=== PATIENT | male | born 1990 | race Caucasian/White ===

== ENCOUNTER 2023-10-21 19:02 | Emergency (ER) | payer MEDICAID, SELFPAY | END 2023-10-21 23:11 | disposition left against medical advice (07) | LOC: HO.ED 22:23 | PROVIDERS: Emergency Provider Emergency Medicine | DX: M25.551 Pain in right hip (principal) ==

== ENCOUNTER 2024-02-08 10:20 | Emergency (ER) | payer MEDICAID, SELFPAY ==
--- NOTE | ~2024-02-08 | XR_ITS ---
X-RAY LUMBAR SPINE X-RAY SACRUM/COCCYX CLINICAL HISTORY: Back pain. COMPARISON: No relevant prior studies are available for comparison. TECHNIQUE: 3 views of the lumbosacral spine. 3 views of the sacrum/coccyx. FINDINGS: Lumbar spine: No acute compression deformity or subluxation. Mild intervertebral disc height loss and facet arthropathy at L5-S1. No significant paraspinal soft tissue abnormality. Sacrum/coccyx: No fracture or subluxation. Symmetric SI joints. Postsurgical changes projecting over the left lower quadrant likely from prior hernia repair, correlate with history. XR/XR lumbar spine 2-3V IMPRESSION: 1. No acute compression deformity or subluxation. 2. Mild lumbar spondylosis at L5-S1. 3. No fracture or subluxation of the sacrum/coccyx.
--- NOTE | ~2024-02-08 | XR_ITS ---
X-RAY LUMBAR SPINE X-RAY SACRUM/COCCYX CLINICAL HISTORY: Back pain. COMPARISON: No relevant prior studies are available for comparison. TECHNIQUE: 3 views of the lumbosacral spine. 3 views of the sacrum/coccyx. FINDINGS: Lumbar spine: No acute compression deformity or subluxation. Mild intervertebral disc height loss and facet arthropathy at L5-S1. No significant paraspinal soft tissue abnormality. Sacrum/coccyx: No fracture or subluxation. Symmetric SI joints. Postsurgical changes projecting over the left lower quadrant likely from prior hernia repair, correlate with history. XR/XR sacrum coccyx min 2V IMPRESSION: 1. No acute compression deformity or subluxation. 2. Mild lumbar spondylosis at L5-S1. 3. No fracture or subluxation of the sacrum/coccyx.
[2024-02-08 10:44] VITALS: BP 126/78; PULSE 94; RESP 20; TEMP 36.6; O2SAT 99; BMI 30.4
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
[2024-02-08 15:08] VITALS: BP 110/68; PULSE 63; RESP 18; TEMP 37.4; O2SAT 99
[2024-02-08 15:24] VITALS: BP 110/68; PULSE 63; RESP 18; TEMP 37.4
== END 2024-02-08 15:25 | disposition home or self-care (01) ==
PROVIDERS: Emergency Provider Student in an Organized Health Care Education/Training Program; PCP Physician Assistant
DX: M47.896 Other spondylosis, lumbar region (principal); M54.50 Low back pain, unspecified; M53.3 Sacrococcygeal disorders, not elsewhere classified
CPT/HCPCS: 72100; 72220; 99282; 99283

== ENCOUNTER 2024-09-01 23:03 | Emergency (ER) | payer MEDICAID, SELFPAY ==
[2024-09-01 23:23] VITALS: BP 131/71; PULSE 83; RESP 16; TEMP 36.9; O2SAT 97; BMI 28.5
--- NOTE | 2024-09-02 01:43 | ED_ITS ---
HPI - General Adult General Chief complaint: Extremity Injury, Lower Stated complaint: R Hip Pain No Injury Time Seen by Provider: 09/02/24 01:43 Source: patient Mode of arrival: ambulatory Limitations: no limitations History of Present Illness HPI narrative: Patient is a 34-year-old male presents emergency department for evaluation of pain to the right hip , described as a deep pain able localized to the right buttock that exacerbates with movement of the right lower extremity in a sensation of spasming to the buttock. At this time he denies any lower back pain associated with this. He reports a history of similar pain last year reports that he ?received an injection? in the emergency department and his pain improved. He was seen by his primary care doctor yesterday who thought his pain is secondary to his sciatic nerve, advised him to take oral naproxen which he took earlier this morning with minimal improvement as well as diclofenac gel without improvement. He denies any recent known injury, heavy lifting, numbness or tingling to the extremity, genitourinary symptoms. No recent fevers chills unintentional weight loss. Related Data Previous Rx's ?Medication ?Instructions ?Recorded ibuprofen 600 mg tablet 600 mg PO Q6H PRN pain #30 tabs 02/08/24 lidocaine 5 % topical patch 1 patch topical DAILY #30 ea 02/08/24 (Lidoderm) cyclobenzaprine 5 mg tablet 5 mg PO TID PRN muscle spasm #14 09/02/24 tabs prednisone 20 mg tablet 40 mg (2 x 20 mg) PO DAILY 5 days 09/02/24 #10 tabs Allergies Allergy/AdvReac Type Severity Reaction Status Date / Time No Known Allergies Allergy Verified 09/01/24 23:25 [No Known Allergies*] Review of Systems Review of Systems: Yes all other systems are reviewed and are negative [facility] Past Medical History Attestation statement: The following information was validated with the patient. Source: old records reviewed Social History Social History Smoked in Last 30 Days: No Use of substances other than those prescribed or required for medical reasons: No Advance Directives: No Advance Directives Information Provided: No Do you have a plan to hurt others: No Plan Physical Exam ED Vital Signs: Vital Signs - 24 hr 09/01/24 23:23 Temperature 98.4 F Pulse Rate 83 Respiratory Rate 16 Blood Pressure 131/71 Pulse Oximetry 97 Oxygen Delivery Method Room Air BMI result Body Mass Index 28.5 Appearance: Alert.?Oriented to person, place and time. No acute distress.?Normal affect. Eyes: Pupils equal, round and reactive to light.? ENT: Pharynx normal.?? Neck: Normal inspection.? Neck supple.?? CVS: Heart sounds normal. Normal heart rate and rhythm.? Pulses normal.?? Respiratory: No respiratory distress.? Lung sounds clear to auscultation bilaterally?? Abdomen: Soft and non-tender. Normoactive bowel sounds. Skin: Skin warm and dry.? Normal skin color.? Back: No midline lumbar spine tenderness, step-offs, deformities. Extremities: No lower extremity edema.? No calf ttp?decreased AROM to the right hip secondary to pain, positive straight leg test on the right. 2+ DP/PT pulse. Neuro: Moves all extremities spontaneously. Sensation intact bilaterally. No focal neuro deficits. Ambulates with antalgic gait. Medications Administered Discontinued Medications Generic Name Dose Route Start Last Admin Trade Name Goodq PRN Reason Stop Dose Admin Ketorolac Tromethamine 15 mg 09/02/24 01:46 09/02/24 01:53 Ketorolac Tromethamine 15 Mg/Ml Vial IM 09/02/24 01:47 15 mg ONCE ONE Administration Medical Decision Making Medical Decision Making [facility] Narrative: Patient is a 34-year-old male who presents emergency department report of pain to the right hip that exacerbates with movement, this is a deep pain in the right glute most concerning for sciatica at this time though there may be mus cular involvement. He has had a history of similar pain in the past, he has been seen in this emergency department previously for lower back pain. He is requesting an MRI of his hip, this time I do not see any clinical indication for this. Pain is atraumatic and given his age I have a low suspicion for significant arthritis, unlikely to have acute fracture. Discussed with patient cannot completely exclude herniated disc of the lumbar region that may be resulting in radicular involvement, On neurological exam there are no deficits. No high risk past medical history including incontinence, fever, immunosuppression, recent surgery or lumbar puncture, coagulopathy, significant trauma, recent unintentional weight loss, pulsatile mass, history of cancer, history of TB, history of IV drug use that would warrant MRI or CT. Received a dose of Toradol IM in the emergency department. Declines interest in continuing to take the naproxen as this provided him with minimal relief. Significant pain with minimal movement of the lower extremity. I will provide him with a short course of prednisone, muscle relaxant given the spasming nature and recommended outpatient follow-up with his primary care doctor, he was made aware that he may require a course of physical therapy which he should speak with his primary care doctor in regards to. Discussed worrisome signs and symptoms that would warrant re-evaluation in the emergency department. All questions answered. Stable for discharge Differential Diagnosis Differential Diagnoses: The differential diagnosis associated with the presentation includes ( see narrative above) Admission/Observation Consideration of admission/observation: Escalation of care including admission/observation considered ( see narrative above) External Record Review External record reviewed: Outpatient record Tests considered The following testing was considered but not selected: See narrative above Prescription Management I considered prescription management with: Pain Medication (See narrative above) Discharge Plan Discharge Clinical Impression: Sciatica of right side Patient Disposition: Home, Self-Care Instructions: Sciatica (ED) Additional Instructions: You can take Tylenol 500 mg, 2 tablets (1,000mg) every 4-6 hours as needed for pain, but not to exceed 3 doses daily (3,000mg).? You have reported the naproxen has not made any difference for your pain, you may trial a short course of oral steroid, I have sent a prescription for prednisone to your pharmacy. Do not take additional NSAIDs with this medication such as naproxen/Aleve, ibuprofen/Advil/Motrin while taking this medication. Please be sure to take the prednisone with food to prevent stomach upset. If your pain is not improved with this you may trial the muscle relaxant; cyclobenzaprine/Flexeril. This medication may make you drowsy. You should not drive, drink alcohol, or work while taking this medication. As discussed, it is important that you follow-up with your primary care doctor, they may consider a course of physical therapy if your symptoms do not improve. You may return to emergency department with any new or worsening symptoms or concerns. Prescriptions: New prednisone 20 mg tablet 40 mg PO DAILY 5 Days Qty: 10 0RF cyclobenzaprine 5 mg tablet 5 mg PO TID PRN (Reason: muscle spasm) Qty: 14 0RF No Action ibuprofen 600 mg tablet 600 mg PO Q6H PRN (Reason: pain) Qty: 30 0RF lidocaine [Lidoderm] 5 % adhesive patch,medicated 1 patch topical DAILY Qty: 30 0RF Rx Instructions: leave on most painful area for up to 12 hrs Referrals: Evelin Norton PA [Primary Care Provider] - Print Language: Japanese
[2024-09-02] MEDS: Ketorolac Tromethamine 15 MG/ML VIAL IM (01:53)
[2024-09-02 02:08] VITALS: BP 107/64; PULSE 71; RESP 18; TEMP 36.3; O2SAT 97
[2024-09-02 02:11] VITALS: BP 107/64; PULSE 71; RESP 18; TEMP 36.3; O2SAT 97
== END 2024-09-02 02:13 | disposition home or self-care (01) ==
PROVIDERS: Emergency Provider Emergency Medicine; PCP Physician Assistant
DX: M54.31 Sciatica, right side (principal); M25.551 Pain in right hip
CPT/HCPCS: 96372; 99284; J1885

== ENCOUNTER 2024-11-04 23:28 | Emergency (ER) | payer OTHER, MEDICAID, SELFPAY ==
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
[2024-11-04 23:30] VITALS: BP 107/71; PULSE 95; RESP 18; TEMP 36.7; O2SAT 98; BMI 27.5
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
[2024-11-05 02:08] VITALS: BP 106/64; PULSE 83; RESP 18; TEMP 36.6; O2SAT 98
[2024-11-05 02:36] VITALS: BP 106/64; PULSE 83; RESP 18; TEMP 36.6; O2SAT 98
== END 2024-11-05 02:37 | disposition home or self-care (01) ==
PROVIDERS: Emergency Provider Internal Medicine
DX: S43.402A Unspecified sprain of left shoulder joint, initial encounter (principal); V43.62XA Car passenger injured in collision with other type car in traffic accident, initial encounter; Y93.89 Activity, other specified; Y92.410 Unspecified street and highway as the place of occurrence of the external cause; Y99.9 Unspecified external cause status
CPT/HCPCS: 73030; 99283

== ENCOUNTER → 2024-11-04 23:59 | Outpatient (BNV) | payer MEDICAID, SELFPAY | PROVIDERS: Visit Provider Radiology Diagnostic Radiology | DX: S49.90XA Unspecified injury of shoulder and upper arm, unspecified arm, initial encounter (principal); M25.512 Pain in left shoulder | CPT/HCPCS: 73030 ==

== ENCOUNTER 2025-02-18 08:31 | Inpatient (IN) | payer MEDICAID, SELFPAY ==
[2025-02-18] VITALS (7 sets, daily range): BP systolic 107–139; BP diastolic 61–81; PULSE 62–99; RESP 12–18; TEMP 36.4–36.9; O2SAT 98–100; BMI 23.6; BMI 23.8
--- NOTE | ~2025-02-18 | CT_ITS ---
CLINICAL HISTORY: follow up appendicitis --- Additional Notes or Special Instructions: fed at 0945 CT abdomen and pelvis with contrast Comparison: 02/18/2025 Findings: The lung bases are clear. The gallbladder and solid organs are within normal limits. No renal stones. No bowel obstruction, pneumoperitoneum, or pneumatosis. Pelvic contents unremarkable. The appendix maximum diameter is 9 mm, not significantly changed, with no other imaging findings to suggest appendicitis. No acute fracture. IMPRESSION: No significant change from yesterday. This document has been electronically signed by: Adalid Del Rosario MD on 02/19/2025 13:41:26
--- NOTE | ~2025-02-18 | CT_ITS ---
EXAMINATION: CT ABDOMEN AND PELVIS WITH CONTRAST CLINICAL INFORMATION: Right lower quadrant pain. Suprapubic pain. COMPARISON: None available. TECHNIQUE: Multidetector volumetric images were obtained from the superior aspect of the liver through the pubic symphysis following administration 85 mL of Omnipaque 350 intravenous contrast. Sagittal and coronal reformatted images were obtained on the technologist's workstation. Oral contrast: No This CT examination was performed using dose optimization techniques as appropriate, variously including the following: *Automated exposure control *Adjustment of mA and/or kV according to patient size (this includes techniques or standardized protocols for targeted exams where dose is matched to indication/reason for exam; i.e. extremities or head) *Use of iterative reconstruction technique. DLP: 447 mGy centimeter. FINDINGS: LUNG BASES: No gross acute airspace disease. LIVER, GALLBLADDER, AND BILIARY TREE: Liver measures 15 cm. No focal lesion. Portal veins and hepatic veins are patent. Gallbladder is contracted. No pericholecystic fluid collection or gallbladder wall thickening. No intrahepatic or extrahepatic biliary ductal dilatation. PANCREAS: No focal lesion. No main pancreatic ductal dilatation. No peripancreatic fluid collection. SPLEEN: 9 cm. No focal lesion. ADRENAL GLANDS: No nodular lesion. KIDNEYS AND URETERS: No hydronephrosis. No gross nephrolithiasis. 1.2 cm exophytic partially calcified cystic lesion in the posterior upper pole right kidney. BLADDER: Fluid-filled. GASTROINTESTINAL TRACT: The appendix measures 7 mm and is fluid-filled.. There is prominent mesenteric lymph nodes on the right hemiabdomen. Gas and fluid-filled mildly prominent distal ileal loops. Collapsed appearance of the distal ileal loops. There is no thickening in wall of the terminal ileum. No intestinal obstruction pattern. No ascites. No peripheral enhancing fluid collection in the peritoneal cavity. No pneumoperitoneum. ABDOMINAL WALL: No umbilical hernia. Postsurgical changes in the left inguinal canal. LYMPH NODES: Prominent mesenteric lymph nodes likely reactive in the right hemiabdomen. VASCULAR: No aneurysm or dissection, abdominal aorta. Prominent pelvic vessels.. PELVIC VISCERA: Not enlarged prostate gland. OSSEOUS STRUCTURES: No acute fracture or listhesis. No lytic or blastic lesions. CT/CT abdomen pelvis w IV con IMPRESSION: Concerning acute noncomplicated, nonruptured early appendicitis in the correct clinical settings with regional ileus. Inflammatory bowel disease seems less likely. Findings communicated to the physician data control assistant in the emergency department, Brittany Fernandez at 12:30 PM on February 18, 2025. Fleischner guidelines were followed. Electronically signed by: Douglas Romo MD 02/18/2025 12:45 PM EDT
[2025-02-18 08:49] LABS: MANUAL DIFF FLAG NO
[2025-02-18 09:00] LABS: Basophils Percent Auto 0.2 % (0-2); Eosinophils Absolute Auto 0.1 X10*3/uL (0.0-0.4); Eosinophils Percent Auto 0.3 % (0-4); Hematocrit 44.4 % (42.0-52.0); Hemoglobin 15.2 g/dl (14.0-18.0); Imm Gran Abs Auto 0.08 X10*3/uL (0.00-0.03); Imm Gran Pct Auto 0.5 % (0.0-0.4); Lymphocytes Absolute Auto 1.6 X10*3/uL (1.2-4.9); Lymphocytes Percent Auto 9.1 % (20-40); Mean Corpuscular HGB Conc 34.2 g/dl (31.0-36.0); Mean Corpuscular Hemoglobin 30.6 pg (27.0-33.0); Mean Corpuscular Volume 89.5 fL (80.0-98.0); Mean Platelet Volume 9.2 fL (9.4-12.4); Monocytes Absolute Auto 1.2 X10*3/uL (0.1-1.2); Monocytes Percent Auto 6.9 % (2-11); Neutrophils Absolute Auto 14.2 x10*3/uL (2.0-8.3); Platelet Count 228 X10*3/uL (160-400); Red Blood Count 4.96 X10*6/uL (4.60-5.80); Red Cell Distribution Width 11.9 % (11.0-16.0); White Blood Count 17.1 X10*3/uL (4.8-10.8)
[2025-02-18 09:11] LABS: Anion Gap 13 (12-20); Blood Urea Nitrogen 16 mg/dL (9-16); Calcium 9.5 mg/dL (8.4-10.2); Carbon Dioxide 25 mmol/L (22-29); Chloride 106 mmol/L (96-108); Creatinine Clr Calc Pharmacy 151.7; Estimated Glomerular Filt Rate > 60; Glucose Random 105 mg/dL (60-115); Sodium 140 mmol/L (135-145)
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
--- OUTSIDE RECORDS SUMMARY | 2025-02-18 09:14 | XMS_ITS | Clinical Summary ---
Author Organization [facility] Address [address] [place] [address] Phone Care Team Providers Care Cardiovascular Sonographer Name Role Phone Shanda Lima Primary Care Provider [phone] Allergies No known active allergies Medications No known medications Encounters Date Type Department Care Team Description 01/19/2025 8:15 AM EDT Office Visit Orthopedic Surgery [address] [phone] Yahir Henry MD Rotator cuff tendinitis, left (Primary Dx); Superior labrum ymeptumi-hb-gqputegq r (SLAP) tear of left shoulder 01/13/2025 8:00 AM EDT - 01/13/2025 11:59 PM EDT Hospital Encounter [facility] MRI [address] [place] [id number] Acute pain of left shoulder Discharge Disposition: Home or Self Care 01/06/2025 9:00 AM EST Office Visit Orthopedic [address] [phone] Yahir Henry MD Acute pain of left shoulder (Primary Dx) 11/25/2024 10:30 AM EST Consult Orthopedic [address] [phone] Yahir Henry MD Superior glenoid labrum lesion of left shoulder, initial encounter (Primary Dx); Acute pain of left shoulder from Last 3 Months Surgical History Surgery Date Site/Laterality Comments HERNIA REPAIR 05/28/2018 Left PROCEDURE: HISTORICAL HERNIA REPAIR/ING; COMMENT: Dr. Black HERNIA REPAIR 06/02/2019 Right PROCEDURE: HISTORICAL HERNIA REPAIR/ING; COMMENT: Dr. Black Medical History Medical History Date Comments Tobacco use 12/16/2019 DX:Tobacco use Social History Tobacco Use Types Packs/Day Years Used Date Smoking Tobacco: Every Day Cigarettes Smokeless Tobacco: Never Alcohol Use Standard Drinks/Week Comments Yes 0 (1 standard drink = 0.6 oz pur e alcohol) Sex and Gender Information Value Date Recorded Sex Assigned at Not on file Legal Sex Male 3:22 AM EST Gender Identity Not on file Sexual Orientation Not on file Obstetrics History Last Filed Vital Signs Vital Sign Reading Time Taken Comments Blood Pressure 100/70 04/13/2024 2:01 PM EDT Pulse 79 04/13/2024 2:01 PM EDT Temperature - - Respiratory Rate - - Oxygen Saturation - - Inhaled Oxygen Concentration - - Weight 81.6 kg (180 lb) 01/19/2025 8:21 AM EDT Height 177.8 cm (5' 10 ) 01/19/2025 8:21 AM EDT Body Mass Index 25.83 01/19/2025 8:21 AM EDT Plan of Treatment Upcoming Encounters Date Type Department Care Team (Late st Contact Info) Description 03/02/2025 8:00 AM EDT Office Visit Orthopedic Surgery - [place] [address] [facility] [address] [place] [phone] Yahir Henry MD [address] [facility] [place] [address] [place] [phone] Health Maintenance Due Date Last Done Comments Pneumococcal Vaccine: Pediatrics (0 to 5 Years) and At-Risk Patients (6 to 64 Years) (1 of 2 - PCV) 2011 HIV Screening 12/02/2023 Social Influencers of Health Screening 12/02/2023 COVID-19 Vaccine ( - season) 2024 Influenza Vaccine (Season Ended) 2025 Depression Screening 09/20/2025 09/20/2024 Cholesterol Screening (Lipid Panel) 11/19/2029 11/19/2024, 11/19/2024, 02/09/2024 DTaP,Tdap,and Td Vaccines (8 - Td or Tdap) 09/13/2032 09/13/2022, 11/03/2013, 06/26/1999, Additional history exists IPV Vaccines Completed 03/31/1996, 01/01, 03/17/1995, Additional history exists Varicella Vaccines Aged Out 08/07/1999 No longer eligible based on patient's age to complete this topic Hepatitis B Vaccines Completed 03/04/2000, 10/16/1999, 08/07/1999 MMR Vaccines Completed 03/04/2000, 06/26/1999 Meningococcal ACWY Vaccine Aged Out 01/26/2007 N o longer eligible based on patient's age to complete this topic Hepatitis C Screening Completed 09/18/2023 HIB Vaccines Aged Out No longer eligi ble based on patient's age to complete this topic HPV Vaccines Aged Out No longer eligi ble based on patient's age to complete this topic Hepatitis A Vaccines Aged Out No long er eligible based on patient's age to complete this topic Meningococcal B Vaccine Aged Out No l onger eligible based on patient's age to complete this topic RSV Immunization Patients Under 20 months Aged Out No longer eligible based on patient's age to complete this topic Procedures Procedure Name Priority Date/Time Associated Diagnosis Comments WI ARTHROCENTESIS/ASPI RATION/INJECTION MAJOR JOINT/BURSA W U/S GUIDANCE Routine 01/19/2025 8:15 AM EDT Superior labrum kytbglki-sk-uojofnz or (SLAP) tear of left shoulder MR SHOULDER WO CONTRAST LEFT Routine 01/13/2025 9:27 AM EDT Acute pain of left shoulder XR SHOULDER 2+ VIEWS LEFT Routine 11/25/2024 10:30 AM EST Pain from Last 3 Months Results * WI ARTHROCENTESIS/ASPIRATION/INJECTION MAJOR JOINT/BURSA W U/S GUIDANCE (01/19/2025 8:15 AM EDT) Narrative Yahir Henry MD - 01/19/2025 8:15 AM EDT Yahir Henry MD ? 01/19/2025 10:27 AM L Inj/Asp: L glenohumeral Indications: pain Details: 22 G needle, ultrasound-guided posterior approach Medications: 40 mg triamcinolone acetonide 40 mg/mL Outcome: tolerated well, no immediate complications Site was prepped in standard fashion using alcohol swab, sterile technique was used to perform the injection, the patient tolerated the procedure well and a band-aid dressing was applied Informed Consent: ??Site: ??Left glenohumeral ??Laterality: ??Left ??Relevant images/test results available and reviewed: yes ?Health status cleared: ??Yes ??Procedure/treatment, purpose, treatment alternatives, risks/potential complications and benefits explained: yes ?Risk/complications/benefits details: ??Risk/complications/benefits details: ??Risks and benefits of corticosteroid injection were discussed, including risk of pain, bleeding, infection, tissue attenuation, tendon rupture, changes in skin color, and injury to surrounding structures such as arteries, veins and nerves. We also discussed the patient may develop worsening pain for a few days before having improvement in their symptoms. ??Patient questions answered: yes ?Patient agrees, verbalizes understanding, and wants to proceed: yes ?Consent given by: ??Patient ??Informed consent discussion completed by Physician/MALI with patient: ?? Verbal ??Pre-procedure timeout performed: yes ?? us Yahir Henry MD IN CLINIC/BEDSIDE ORDERABLES Fin al Result * MR Shoulder wo Contrast Left (01/13/2025 9:27 AM EDT) Anatomical Region Laterality Modality Upper Extremities, Shoulder Left Magn etic Resonance 01/13/2025 11:2 0 AM EDT Impressions 01/13/2025 11:37 AM EDT Superior labral tear extending anterior to posterior and involving the biceps anchor. -------- FINAL REPORT -------- Dictated By: JN PINON Dictated Date: 01/13/2025 11:20 ET Assigned Physician: JN PINON Reviewed and Electronically Signed By: JN PINON Signed Date: 01/13/2025 11:37 ET Workstation ID: [id number] Transcribed By: Self Edit Transcribed Date: 01/13/2025 11:20 ET Narrative 01/13/2025 11:37 AM EDT PROCEDURE: Left shoulder MRI INDICATION: Pain TECHNIQUE: Multiplanar, multisequence MRI of the left shoulder Without contrast. COMPARISON: ??No priors available. FINDINGS: Supraspinatus tendinosis tendinosis without tear. ??Rotator cuff is intact. Muscle bulk is preserved. Biceps tendon is present within the bicipital groove and intact at the superior glenoid tubercle. Superior labral tear extending anterior to posterior and involving the biceps anchor. ??No involvement of the biceps tendon. Glenohumeral and coracoclavicular ligaments are intact. Mild degenerative changes at the acromioclavicular joint with capsular hypertrophy. ??No subacromial/subdeltoid bursal fluid. ??Curved acromial undersurface. No fracture or suspicious marrow replacing lesion. Glenohumeral alignment is preserved. ??No focal full-thickness cartilage defects or glenohumeral joint effusion. No axillary adenopathy or soft tissue mass.. Procedure Note Jn Pinon MD - 01/13/2025 PROCEDURE: Left shoulder MRI INDICATION: Pain TECHNIQUE: Multiplanar, multisequence MRI of the left shoulder Withoutcontrast. COMPARISON: No priors available. FINDINGS: Supraspinatus tendinosis tendinosis without tear. Rotator cuff isintact. Muscle bulk is preserved. Biceps tendon is present within the bicipital groove and intact at thesuperior glenoid tubercle. Superior labral tear extending anterior to posterior and involving thebiceps anchor. No involvement of the biceps tendon. Glenohumeral and coracoclavicular ligaments are intact. Mild degenerative changes at the acromioclavicular joint with capsularhypertrophy. No subacromial/subdeltoid bursal fluid. Curved acromialundersurface. No fracture or suspicious marrow replacing lesion. Glenohumeral alignment is preserved. No focal full-thickness cartilagedefects or glenohumeral joint effusion. No axillary adenopathy or soft tissue mass.. IMPRESSION: Superior labral tear extending anterior to posterior and involving thebiceps anchor. -------- FINAL REPORT -------- Dictated By: JN PINON Dictated Date: 01/13/2025 11:20 ET Assigned Physician: JN PINON Reviewed and Electronically Signed By: JN PINON Signed Date: 01/13/2025 11:37 ET Workstation ID: [id number] Transcribed By: Self Edit Transcribed Date: 01/13/2025 11:20 ET Yahir Henry MD IMG MRI PROCEDURES Final Result * XR Shoulder 2+ Views Left (11/25/2024 10:30 AM EST) Anatomical Region Laterality Modality Upper Extremities, Shoulder Left Comp uted Radiography Narrative 11/25/2024 11:18 AM EST 4 view x-ray of the left shoulder obtained today in clinic shows no evidence of fracture or dislocation the glenohumeral and acromioclavicular joint space are well-preserved there is no fracture of the acromion or scapular spine or body appreciated. ??Soft tissue shadows appear normal. Impression: Normal radiographs of the left shoulder. Yahir Henry MD IMG XR PROCEDURES Final Result from Last 3 Months Insurance MEDICAID - [place] Care Teams Cardiovascular Sonographer Relationship Specialty Start Date End Date Shanda Lima PA PCP - General 02/26/24
--- OUTSIDE RECORDS SUMMARY | 2025-02-18 09:14 | XMS_ITS | Data Portability ---
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 He had been on [id number] decongestant preparations for many years. Fortunately he is now off them. 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 Nasal endoscopy is limited on the right side due to the severe deviation of the septum. On the left side there is no polyps. Previous CT of the head showed maxillary sinus thickening on the left side without polyps. No nasopharyngeal masses were noted. At this point have suggested consistent use of budesonide nasal spray 2 sprays each nostril once daily, saline irrigations, arrange for allergy skin testing and if he has persistent symptoms consider CT of the sinuses and possible septoplasty and turbinate reduction [email or web address] Not available 11/18/2024 09:48:16 Plan of Treatment Reminders Order Date Submit Date Provider Last Modified By Organization Details Last Modified Time Details Appointments None recorded. Lab None recorded. Referral None recorded. Procedures allergy testing, skin prick (PROC) 2024 025 [email or web address] Not available 12:17:26 intradermal allergy skin testing (PROC) 2024 025 [email or web address] Not available 12:17:27 pulmonary function test procedure (PROC) 2024 025 [email or web address] Not available 12:17:27 pulse oximetry (PROC) 2024 025 [email or web address] Not available 12:17:27 Surgeries None recorded. Imaging None recorded. Medication Orders budesonide 32 mcg/actuati on nasal spray 2024 025 [facility] #[id number], [address] [place], [address], 09:49:20 Patient TargetsNo targets recorded. Patient InstructionsNo instructions recorded. Reason for Referral None Reported. Results Created Date Observation Date Name Description Value Unit Range Abnormal Flag Note LastModifiedBy Organization Detail LastModifiedTime 11/15/1911/11/2024 CT, maxil lofac ial, w/o contr ast No observ ation record ed. [email or web address], [address], 11/18/2024 12:59:59 Result Notes None recorded. Problems Name Problem SNOMED Code Status Onset Date Resolution Date Notes Provider Name and Address Organization Details Recorded Time Deviated nasal septum 814626049 Active 2024 SAYDA SANCHEZ MD [address] [place] [address], [place], [phone], [facility] - [facility] 5 09:48:29 Hypertrophy of nasal turbinates 51643326 Active 2024 SAYDA SANCHEZ MD [address] [place] [address], [phone], [facility] - [facility] 5 09:48:34 Chronic sinusitis 88571079 Active 2024 SAYDA SANCHEZ MD [address] [place] [address], [phone], [facility] - [facility] 5 09:48:39 Problem Notes None recorded. Procedures Surgical History Date Name Laterality Status Provider Name and Address Organization Details Recorded Time JMSNasal/Sinus Endoscopy completed SAYDA LYNN MD [address] [facility],[place] [address], [place], [address], [place] - [facility] 11/18/2024 09:50:34 Imaging Results Imaging Date Name Status LastModified by Organiz ation Details LastModified Time 11/11/2024 CT, maxillofacial , w/o contrast completed [address] [place], [address], 11/18/2024 12:59:59 Procedure Notes None recorded. Medical Equipment None Reported. Medications Name Sig Start Date Stop Date Status Note LastModified by Organization Details LastModified Time amoxicillin 500 mg capsule TAKE 1 CAPSULE BY MOUTH THREE TIMES A DAY TILL GONE 11/18 completed Not Available Not Available Not Available budesonide 32 mcg/actuati on nasal spray Take 2 sprays every day by nasal route. 2024 active Not Available Not Available Not Avai lable clindamycin HCl 300 mg capsule TAKE 1 CAPSULE BY MOUTH THREE TIMES A DAY TILL GONE 11/18 completed Not Available Not Available Not Available ibuprofen 800 mg tablet TAKE 1 TABLET BY MOUTH THREE TIMES A DAY NEEDED active Not Available Not Available No t Available prednisone 20 mg tablet TAKE 2 TABLETS BY MOUTH EVERY DAY X 5 DAYS 11/18 completed Not Available Not Available Not Available nicotine (polacrilex ) 4 mg gum PLEASE SEE ATTACHED FOR DETAILED DIRECTION S active Not Available Not Available No t Available lidocaine 5 % topical patch APPLY 1 PATCH DAILY LEAVE ON MOST PAINFUL AREA FOR UP TO 12 HRS (12 HOURS ON, 12 HOURS OFF) active Not Available Not Available No t Available omeprazole 20 mg capsule,del ayed release TAKE 1 CAPSULE BY MOUTH EVERY DAY IN THE MORNING BEFORE BREAKFAST active Not Available Not Available No t Available diclofenac sodium 50 mg tablet,nikolay yed release TAKE 1 TABLET BY MOUTH TWICE A DAY 11/18 completed Not Available Not Available Not Available ibuprofen 600 mg tablet TAKE 1 TABLET BY MOUTH EVERY 6 HOURS NEEDED FOR PAIN active Not Available Not Available No t Available fluticasone propionate 50 mcg/actuati on nasal spray,suspe nsion PLACE 1 SPRAY IN BOTH NOSTRILS ONCE DAILY FOR 14 DAYS 11/18 completed Not Available Not Available Not Available naproxen 500 mg tablet TAKE 1 TABLET BY MOUTH TWICE A DAY WITH A MEAL active Not Available Not Available No t Available cyclobenzap rine 5 mg tablet TAKE 1 TABLET BY MOUTH THREE TIMES A DAY NEEDED FOR MUSCLE SPASM active Not Available Not Available No t Available diclofenac 1 % topical gel APPLY 4 G TOPICALLY 2 (TWO) TIMES DAILY TO BACK active Not Available Not Available No t Available Vitals Date Recorded Body height Body mass index (BMI) Body weight Provider Name and Address Organization Details Last Updated DateTime 11/18/2024 175.26 cm 28.1 kg/m2 80242.55 g Abrahan Casillas [place] - [facility] 11/18/2024 09:11:30 Date Recorded Systolic blood pressure Diastolic blood pressure Provider Name and Address Organization Details Last Updated DateTime 11/18/2024 120 mm[Hg] 90 mm[Hg] SAYDA LYNN MD [address] [place] [address],[address], [address], [facility] 11/18/2024 09:51:04 Social History Question Answer Notes LastModified by Organizat ion Details LastModified Time Tobacco Smoking Status Former Smoker SAYDA LYNN MD [address] [place] [address],[address], [phone], [facility] 11/18/2024 09:42:30 When Did You Quit Smoking? 1-5yearssinc elastcigaret te Information not available 11/18/2024 What Is Your Current Pack Years? 10-19packyea rs Information not available 11/18/2024 Sex: Unknown Functional Status None recorded. Mental Status None recorded. Family History Nothing Reported. Medical History Condition Response Allergies/Hayfever Y Heart Problems N Anxiety N Tonsil Infections N Emphysema N Migraines N Thyroid Problems N Glaucoma N Depression N COPD N Developmental Delay N Nasal or Sinus Problems N Anemia N Immune System Disorder N Anesthesia Complications N Heart Attack ([place]) N Other Skin Condition N Diabetes N Rhinitis N Bleeding Disorder N Food Allergy N Arthritis N Hearing Loss N Hyperlipidemia N Cancer N Stroke N Dementia N Nasal polyps N Asthma N Sleep Disorder N GERD/Reflux N High Cholesterol N Liver Disease N Headaches N Fibromyalgia N Hypertension N Speech Delay N Kidney Disease N Past Encounters Encounter ID Performer Location Encounter Start Date Encounter Closed Date Diagnosis/Indication Diagnosis SNOMED-CT Code Diagnosis ICD10 Code Diagnosis Note [id number] SAYDA NEELY MD [facility] [address] [place] [address] 11/18/2024 09:04:30 11/18/2024 09:52:00 Deviated nasal septum 988929052 J34.2 Hypertroph y of nasal turbinates 69188780 J34.3 Chronic sinusitis 431377 00 J32.9 Health Concerns Section Related Observation LastModified by Organization Detai ls LastModified Time None Recorded Concern Status LastModified by Organization Details LastModified Time None Recorded Advance Directives Directive None Recorded Payers Encounter Date Sequence Insurance Name Policy Number Policy Schneider Covered Member ID Schneider Member ID Guarantor Name 11/18/2024 1 [place] [employer] [employer] (MEDICAID) Jose Antonio Foss [id number] Jose Antonio Foss Notes Date Note Type Note Provider Name and Address Organization Details Recorded Time 11/18/2024 text/html 34-year-old male seen for an opinion regarding chronic nasal congestion. He was using wnqt-[id number]-[id number] decongestant preparations for many years. He was able to stop those in August but feels the congestion has persisted. He recently had a CT scan which showed moderate thickening of the left maxillary sinus without any air-fluid levels. SAYDA LYNN MD [address] [place] [address], [phone], [facility] - [facility] 11/18/2024 09:51:33
--- OUTSIDE RECORDS SUMMARY | 2025-02-18 09:14 | XMS_ITS | Clinical Summary ---
Author Organization [facility] Address [address] [facility] [address] [place] [address] Care Team Providers Care Tour Conductor Name Role Phone Unavailable Primary Care Provider Unavailabl e Encounters Date Type Department Care Team Description 01/14/2025 Population Health Risk Score [facility] (C3) Department [address] [facility] [address] [place] [address] [place] [phone] Provider, Population Health Generic from Last 3 Months Social History Tobacco Use Types Packs/Day Years Used Date Smoking Tobacco: Never Assessed Sex and Gender Information Value Date Recorded Sex Assigned at Not on file Legal Sex Male 1:47 PM EST Gender Identity Not on file Sexual Orientation Not on file Plan of Treatment Health Maintenance Due Date Last Done Comments Depression Screening 1992 HIV Screening 1992 SDOH Screening 1992 Alcohol/Substance Use Screening 2004 Tobacco Screening 2004 Family Planning (PISQ) 2007 Hepatitis C Screening 2010 DTaP/Tdap/Td Vaccines (1 - Tdap) 2011 Hepatitis B Vaccines (1 of 3 - 19+ 3-dose series) 2011 COVID-19 Vaccine ( - 2023-2 5 season) 2024 Influenza Vaccine (#1) 2024 Zoster Vaccines (1 of 2) 2042 RSV Patients and Pa tients Aged 60 years or older (1 - 1-dose 75+ series) 2067 HIB Vaccines Aged Out No longer eligi ble based on patient's age to complete this topic HPV Vaccines Aged Out No longer eligi ble based on patient's age to complete this topic Hepatitis A Vaccines Aged Out No long er eligible based on patient's age to complete this topic IPV Vaccines Aged Out No longer eligi ble based on patient's age to complete this topic Meningococcal Vaccine Aged Out No gerard pepe eligible based on patient's age to complete this topic Pneumococcal Vaccine: Pediat rics (0 to 5 Years) and At-Risk Patients (6 to 49) Years) Aged Out No longer eligible b ased on patient's age to complete this topic RSV under 20 months Aged Out No longe r eligible based on patient's age to complete this topic Rotavirus Vaccines Aged Out No longer eligible based on patient's age to complete this topic
[2025-02-18] MEDS: 0.9 % Sodium Chloride 1,000 ML 999 ML IV (11:53)
[2025-02-18] MEDS: Ketorolac Tromethamine 15 MG/ML VIAL IVPUSH (11:58)
[2025-02-18 12:10] LABS: Alanine Aminotransferase 17 U/L (0-40); Albumin Level 4.7 g/dL (3.5-5.0); Aspartate Amino Transferase 21 U/L (5-37); Bilirubin Direct 0.3 mg/dL (0.0-0.5); Bilirubin Total 1.1 mg/dL (0.0-1.0); Lipase 17 U/L (8-78); Magnesium 1.7 mg/dL (1.6-2.6); Total Protein 7.9 g/dL (6.5-8.0)
[2025-02-18] MEDS: iohexoL 350 MG/ML 100 ML INFUS..BTL IV (12:18)
--- NOTE | 2025-02-18 12:24 | ED_ITS ---
HPI - Abdominal Pain General Chief Complaint: Abdominal Pain Stated Complaint: abd and back pain quest constipation Time Seen by Provider: 02/18/25 11:35 Source: patient, RN notes reviewed and old records reviewed Mode of arrival: ambulatory History of Present Illness ED Provider: Brittany Fernandez PA-C HPI narrative: 34-year-old male with a past medical history of bilateral inguinal hernia repair, presenting to the ED complaining of constant RLQ abdominal pain since 04:30AM with radiation to right testicle. Reports right-sided low back pain x 1 week. Denies nausea, vomiting, diarrhea, testicular swelling, fever, chills. Denies back injury, trauma or fall, numbness/tingling, radiation of pain down LE, incontinence/retention. Related Data Previous Rx's ?Medication ?Instructions ?Recorded ibuprofen 600 mg tablet 600 mg PO Q6H PRN pain #30 tabs 02/08/24 lidocaine 5 % topical patch 1 patch topical DAILY #30 ea 02/08/24 (Lidoderm) cyclobenzaprine 5 mg tablet 5 mg PO TID PRN muscle spasm #14 09/02/24 tabs prednisone 20 mg tablet 40 mg (2 x 20 mg) PO DAILY 5 days 09/02/24 #10 tabs Allergies Allergy/AdvReac Type Severity Reaction Status Date / Time No Known Allergies Allergy Verified 02/18/25 08:36 [No Known Allergies*] Review of Systems Review of Systems Yes all other systems are reviewed and are negative Constitutional: Reports as per HPI [facility] Past Medical History Attestation statement: The following information was validated with the patient. Source: old records reviewed Social History Social History Advance Directives: No Advance Directives Information Provided: No Physical Exam ED Vital Signs: Vital Signs - 24 hr 02/18/25 08:33 02/18/25 12:45 Temperature 98.5 F 97.7 F Pulse Rate 99 72 Respiratory Rate 18 16 Blood Pressure 124/75 125/76 Pulse Oximetry 98 100 Oxygen Delivery Method Room Air Room Air BMI result Body Mass Index 23.6 Const General: cooperative, healthy appearing and no acute distress Orientation/consciousness: patient oriented x3 Limitations: no limitations HENMT Head: Yes normal to inspection and Yes atraumatic Ears: hearing grossly normal bilaterally General nose exam: Normal external nose present Face and sinus: Yes normal facial exam Eyes General: appearance normal, both eyes and all related structures EOM: EOMs intact bilaterally Neck Neck: Yes normal visual inspection and Yes no meningeal signs Resp Effort & Inspection: normal respiratory effort and no respiratory distress Auscultation: clear to auscultation bilaterally Cardio Rate: regular rate Heart sounds: S1 normal heart sound present and S2 normal heart sound present GI Inspection: Yes normal to inspection Palpation (GI): Soft to palpation, Tenderness to palpation present (GI) (right suprapubic) in the RLQ; with no rebound tenderness, no guarding and not rigid General: Yes no CVA tenderness Penis: normal penis and uncircumcised Scrotum: scrotum normal, no ecchymosis, not erythematous and no inguinal hernias Testes: Testes normal, no epidiymal tenderness, no testicular swelling and no testicular tenderness Back/Spine/Pelvis Back: no CVA tenderness Skin Rashes: no rashes Wounds: no wounds Neuro General: patient oriented x3, tone normal and no meningeal signs Cranial nerves: Yes CN's II-XII intact bilaterally Gait exam (Neuro): Normal gait present Extrem General: Yes normal to inspection Course Course Course Narrative: -1232--leukocytosis of 17.1. Labs otherwise reassuring > will obtain lactic/blood cultures and give empiric Zosyn CT abdomen pelvis w IV con IMPRESSION: Concerning acute noncomplicated, nonruptured early appendicitis in the correct clinical settings with regional ileus. Inflammatory bowel disease seems less likely. Findings communicated to the physician middle school assistant principal in the emergency department, Brittany Fernandez at 12:30 PM on February 18, 2025. Fleischner guidelines were followed. > will discuss case with surgery, Dr. Donovan >1315--Dr. Donovan will admit patient for antibiotics and hold off on surgery at this time. Medical Decision Making Medical Decision Making MDM Narrative: 34-year-old male with a past medical history of bilateral inguinal hernia repair, presenting to the ED complaining of constant RLQ abdominal pain since 04:30AM with radiation to right testicle. Reports right-sided low back pain x 1 week. On exam vital signs stable, NAD, nontoxic appearing, abdomen is soft with RLQ tenderness/rate suprapubic tenderness, no rebound or guarding. No CVAT. exam WNL. Concern for appendicitis vs renal vs UTI vs hernia. Low suspicion for testicular torsion. Low suspicion for severe sepsis at this time Plan: Labs, UA, CT AP, IVF, re-evaluate Please refer to course for remaining clinical decision making, interpretation of labs/imaging results, and discussions with consultants and/or family members. Differential Diagnosis Differential Diagnoses: The differential diagnosis associated with the presentation includes As above Admission/Observation Consideration of admission/observation: Escalation of care including admission/observation considered Consult Healthcare Provider Management of the patient was discussed with: Hoop Coiling Machine Operator (General surgery) Lab Data MDM Lab Attestation statement: I reviewed the patient's lab results. 02/18/25 08:45 02/18/25 08:45 Labs: Lab Results 02/18/25 Range/Units 08:45 WBC 17.1 H (4.8-10.8) X10*3/uL RBC 4.96 (4.60-5.80) X10*6/uL Hgb 15.2 (14.0-18.0) g/dl Hct 44.4 (42.0-52.0) % MCV 89.5 (80.0-98.0) fL MCH 30.6 (27.0-33.0) pg MCHC 34.2 (31.0-36.0) g/dl RDW 11.9 (11.0-16.0) % Plt Count 228 (160-400) X10*3/uL MPV 9.2 L (9.4-12.4) fL Immature Gran % (Auto) 0.5 H (0.0-0.4) % Neut % (Auto) 83.0 H (45-73) % Lymph % (Auto) 9.1 L (20-40) % Bailey % (Auto) 6.9 (2-11) % Eos % (Auto) 0.3 (0-4) % Baso % (Auto) 0.2 (0-2) % Lymph # (Auto) 1.6 (1.2-4.9) X10*3/uL Bailey # (Auto) 1.2 (0.1-1.2) X10*3/uL Eos # (Auto) 0.1 (0.0-0.4) X10*3/uL Baso # (Auto) 0.0 (0.0-0.2) X10*3/uL Abs Immat Gran (auto) 0.08 H (0.00-0.03) X10*3/uL Absolute Neuts (auto) 14.2 H (2.0-8.3) x10*3/uL Absolute Nucleated RBC 0.000 (0.0-0.012) X10*3/uL Nucleated RBC % (auto) 0.0 (0.0-0.2) /100WBC Sodium 140 (135-145) mmol/L Potassium 4.0 (3.3-5.1) mmol/L Chloride 106 (96-108) mmol/L Carbon Dioxide 25 (22-29) mmol/L Anion Gap 13 (12-20) BUN 16 (9-16) mg/dL Creatinine 0.79 (0.5-1.4) mg/dL Estim Creat Clear Calc 151.7 Estimated GFR > 60 Random Glucose 105 (60-115) mg/dL Calcium 9.5 (8.4-10.2) mg/dL Magnesium 1.7 (1.6-2.6) mg/dL Total Bilirubin 1.1 H (0.0-1.0) mg/dL Direct Bilirubin 0.3 (0.0-0.5) mg/dL AST 21 (5-37) U/L ALT 17 (0-40) U/L Total Protein 7.9 (6.5-8.0) g/dL Albumin 4.7 (3.5-5.0) g/dL Lipase 17 (8-78) U/L Independent Interpretation I performed an independent interpretation of an: CT Scan Radiology Impression Discussion of test interpretation with radiology: I have reviewed the radiologist's reading. External Record Review External record reviewed: Inpatient record, Office record, Outpatient record, Prior outpatient labs, Prior outpatient radiology, Primary care record and Outside ED record Tests considered The following testing was considered but not selected: As above Prescription Management I considered prescription management with: Pain Medication Chronic Conditions Patient?s care impacted by: Other Medications Administered Discontinued Medications Generic Name Dose Route Start Last Admin Trade Name Freq PRN Reason Stop Dose Admin Sodium Chloride 1,000 mls @ 999 mls/hr 02/18/25 11:45 02/18/25 11:53 Ns IV 02/18/25 12:45 999 mls/hr .Q1H1M GABBY Administration Iohexol 100 ml 02/18/25 12:18 02/18/25 12:18 Iohexol 350 Mg/Ml 100 Ml Infus..Btl IV 02/18/25 12:19 85 ml ONCE ONE Administration Ketorolac Tromethamine 15 mg 02/18/25 11:44 02/18/25 11:58 Ketorolac Tromethamine 15 Mg/Ml Vial IVPUSH 02/18/25 11:45 15 mg ONCE ONE Administration Critical Care Time Critical Care Time Critical Care Time: Yes Total Critical Care Time: 35 Attestation: I have personally provided critical care time exclusive of time spent on separately billable procedures. Time includes review of lab data, radiology results, discussion with consultants, and monitoring for potential decompensation. Intervention performed as documented. Discharge Plan Discharge Clinical Impression: Appendicitis Patient Disposition: Admitted As Inpatient Print Language: Zimbabwean
[2025-02-18] MEDS: Piperacillin Sodium/Tazobactam 3.375 GM in 0.9 % Sodium Chloride 50 ML IV ×2 (13:24→21:01)
--- NOTE | 2025-02-18 13:28 | PM.HPGS ---
History of Present Illness History of Present Illness Date of Service: 02/18/25 Chief complaint: Abd and Back Pain [facility] Constipation Narrative: Jose Antonio Foss is a 34 year old male presenting with complaints of abdominal pain in the right lower quadrant. The pain began as generalized abdominal pain at approximately 03:00 in the morning today. He denies any previous history of similar pain. He initially felt he needed to go to the bathroom however this did not improve his pain. The pain gradually radiated to the right lower quadrant were remains currently. Denies nausea or vomiting, fever or chills. He presented to the emergency department was noted to have tenderness in the right lower quadrant. WBC was elevated at 17. CT abdomen and pelvis revealed thickened appendix with periappendiceal inflammation. No fecalith was identified. There was no evidence of fluid collection to indicate a perforation. Review of Systems Review of Systems: Yes all other systems are reviewed and are negative Constitutional: Constitutional: Denies chills, Denies fever(s) and Reports poor appetite Gastrointestinal: Gastrointestinal: Reports abdominal pain (Right lower quadrant, pain with motion) Genitourinary: Genitourinary: Denies difficulty urinating [facility] [place] Social History Social History Advance Directives: No Advance Directives Information Provided: No Meds Allergies Allergy/AdvReac Type Severity Reaction Status Date / Time No Known Allergies Allergy Verified 02/18/25 08:36 [No Known Allergies*] Active Medications: Current Medications Calcium Carbonate (Calcium Carbonate 750 Mg Tab.Chew) 750 mg PO Q4H PRN PRN Reason: Heartburn Hydromorphone HCl (Hydromorphone Hcl 0.5 Mg/0.5 Ml Syringe) 0.5 mg IVPUSH Q3H PRN; Protocol PRN Reason: Pain, Severe (Pain Scale 7-10) Acetaminophen (Ofirmev) 1,000 mg in 100 mls @ 400 mls/hr IV Q6H PRN PRN Reason: Pain, Mild (Pain Scale 1-3) Dextrose/Lactated Ringer's (D5lr) 1,000 mls @ 125 mls/hr IVCONT .Q8H GABBY Piperacillin Sod/Tazobactam (Sod 3.375 gm/ Sodium Chloride) 50 mls @ 100 mls/hr IV Q6H GAB[facility] Magnesium Hydroxide (Milk Of Magnesia 30 Ml Oral.Susp) 30 ml PO DAILY PRN PRN Reason: Constipation Ondansetron HCl (Ondansetron Hcl 4 Mg/2 Ml Vial) 4 mg IVPUSH QID PRN PRN Reason: Nausea Oxycodone HCl (Oxycodone Hcl Immed Release 5 Mg Tablet) 5 mg PO Q6H PRN PRN Reason: Pain, Moderate(Pain Scale 4-6) Sodium Chloride (0.9 % Sodium Chloride Flush 3 Ml Syringe) 3 ml IVFLUSH QSHIFT GABBY Zolpidem Tartrate (Zolpidem Tartrate 5 Mg Tablet) 5 mg PO BEDTIME PRN PRN Reason: Insomnia Physical Exam Vital Signs: Vital Signs: Last Vital Signs Temp 97.7 F 02/18/25 12:45 Pulse 72 02/18/25 12:45 Resp 16 02/18/25 12:45 BP 125/76 02/18/25 12:45 Pulse Ox 100 02/18/25 12:45 O2 Del Method Room Air 02/18/25 12:45 BMI result Body Mass Index 23.6 Const: General: cooperative and no acute distress Nutritional Appearance: well nourished Orientation/consciousness: patient oriented x3 Limitations: no limitations HEENT: Head: Yes normocephalic and Yes atraumatic Ears: hearing grossly normal bilaterally Resp: Effort & Inspection: normal respiratory effort, no audible wheezes, no cough and no respiratory distress Cardio: Jugular venous distension: no JVD GI: Inspection: Yes normal to inspection Palpation (GI): Soft to palpation, Tenderness to palpation present (GI) in the RLQ and at McBurney's point; with no rebound tenderness and Rovsing's sign negative, no guarding, not rigid and No hepatosplenomegaly present Percussion: Yes normal to percussion Auscultation: normal bowel sounds Rectal Exam - Male: Yes deferred Skin: Other: Warm, dry, no rash Neuro: General: patient oriented x3 Extrem: General: Yes no clubbing, cyanosis or edema Results Results Labs: Short CBC 02/18/25 Range/Units 08:45 WBC 17.1 H (4.8-10.8) X10*3/uL Hgb 15.2 (14.0-18.0) g/dl Hct 44.4 (42.0-52.0) % Plt Count 228 (160-400) X10*3/uL BMP 02/18/25 08:45 Sodium 140 Potassium 4.0 Chloride 106 Carbon Dioxide 25 BUN 16 Creatinine 0.79 Calcium 9.5 Liver Function 02/18/25 Range/Units 08:45 Total Bilirubin 1.1 H (0.0-1.0) mg/dL Direct Bilirubin 0.3 (0.0-0.5) mg/dL AST 21 (5-37) U/L ALT 17 (0-40) U/L Albumin 4.7 (3.5-5.0) g/dL Assessment and Plan (1) Appendicitis: Qualifiers: Appendicitis type: acute appendicitis Acute appendicitis type: with localized peritonitis Appendicitis gangrene presence: without gangrene Appendicitis perforation presence: without perforation Appendicitis abscess presence: without abscess Qualified Code(s): K35.30 - Acute appendicitis with localized peritonitis, without perforation or gangrene Status: Acute Plan 34-year-old male patient presenting with complaints of abdominal pain in the right lower quadrant which began this morning. Workup reveals evidence of acute appendicitis with tenderness in the right lower quadrant, elevated WBC and CT findings suggestive of a non perforated appendicitis. I reviewed the options including laparoscopic appendectomy verses treatment with IV antibiotics. The patient was planning a vacation on Friday to go to [place] therefore would like to avoid surgery if possible. I discussed the risks and benefits of treatment with antibiotics including the risk of return of the symptoms in the future. He expressed understanding and agrees with proceeding with IV antibiotics. He will be admitted to the surgical service and placed on Zosyn. He understands that if his pain worsens he may require surgical intervention at this admission. Quality Stroke Does the patient have a stroke diagnosis?: No VTE Prior VTE?: No VTE Risk Level:: Surgical - low VTE Device Contraindication: N/A - Device Ordered VTE Drug Contraindication: Treatment Not Indicated Procedures Date of Service Date of Service: 02/18/25
[2025-02-18 13:48] LABS: Lactic Acid 0.5 mmol/L (0.5-2.0)
[2025-02-18] MEDS: Dextrose 5 % and Lactated Ring 1,000 ML 125 ML IVCONT ×2 (13:56→21:35)
--- NOTE | 2025-02-18 15:26 | PHA.MEDREC ---
Addendum entered by Jaret Blanchard 02/18/25 15:46: reviewed Original Note: Pharmacy Consult ? Medication Reconciliation Pharmacy has completed the medication reconciliation. Patient states he is not taking any medications at this time.
[2025-02-18] MEDS: HYDROmorphone HCl 0.5 MG/0.5 ML SYRINGE IVPUSH ×2 (16:45→22:59)
[2025-02-18 18:42] LABS: Alkaline Phosphatase 45 U/L (39-117)
[2025-02-18] MEDS: Zolpidem Tartrate 5 MG TABLET PO (22:55)
[2025-02-18] MEDS: 0.9 % Sodium Chloride Flush 3 ML SYRINGE IVFLUSH (23:05)
[2025-02-19] MEDS: Piperacillin Sodium/Tazobactam 3.375 GM in 0.9 % Sodium Chloride 50 ML IV ×2 (02:30→09:05)
[2025-02-19 03:18] VITALS: BP 102/59; PULSE 62; RESP 14; TEMP 36.7; O2SAT 97
[2025-02-19 03:34] VITALS: RESP 16
[2025-02-19] MEDS: Dextrose 5 % and Lactated Ring 1,000 ML 125 ML IVCONT (05:36)
[2025-02-19 06:12] LABS: MANUAL DIFF FLAG NO
[2025-02-19 06:17] LABS: Basophils Percent Auto 0.3 % (0-2); Eosinophils Absolute Auto 0.1 X10*3/uL (0.0-0.4); Eosinophils Percent Auto 1.8 % (0-4); Hematocrit 38.3 % (42.0-52.0); Hemoglobin 13.1 g/dl (14.0-18.0); Imm Gran Abs Auto 0.01 X10*3/uL (0.00-0.03); Imm Gran Pct Auto 0.2 % (0.0-0.4); Lymphocytes Percent Auto 31.9 % (20-40); Mean Corpuscular HGB Conc 34.2 g/dl (31.0-36.0); Mean Corpuscular Hemoglobin 30.9 pg (27.0-33.0); Mean Corpuscular Volume 90.3 fL (80.0-98.0); Mean Platelet Volume 9.5 fL (9.4-12.4); Monocytes Absolute Auto 0.7 X10*3/uL (0.1-1.2); Monocytes Percent Auto 11.1 % (2-11); Neutrophils Absolute Auto 3.4 x10*3/uL (2.0-8.3); Neutrophils Percent Auto 54.7 % (45-73); Platelet Count 186 X10*3/uL (160-400); Red Blood Count 4.24 X10*6/uL (4.60-5.80); Red Cell Distribution Width 11.9 % (11.0-16.0); White Blood Count 6.2 X10*3/uL (4.8-10.8)
[2025-02-19 07:37] VITALS: BP 115/66; PULSE 59; RESP 16; TEMP 36.4; O2SAT 98
[2025-02-19 07:56] LABS: Appearance Urine Clear; Color Urine Dark Yellow; Glucose Urine UA Negative (Negative); Leukocyte Esterase Urine Negative (Negative); Nitrite Urine Negative (Negative); Specific Gravity - Urine >= 1.030 (1.005-1.025); Urine Blood Negative (Negative); Urine Ketones Trace mg/dL (Negative); Urine Protein Trace mg/dL (Neg-Trace)
--- NOTE | 2025-02-19 07:56 | PM.PNGS ---
Subjective Subjective Date of Service: 02/19/25 Interval history: Patient feels much improved today. Abdominal pain almost resolved. He reports being hungry this morning. Physical Exam Vital Signs: Vital Signs: Last Vital Signs Temp 97.6 F 02/19/25 07:37 Pulse 59 02/19/25 07:37 Resp 16 02/19/25 07:37 BP 115/66 02/19/25 07:37 Pulse Ox 98 02/19/25 07:37 O2 Del Method Room Air 02/19/25 07:37 BMI result Body Mass Index 23.8 Const: General: comfortable Nutritional Appearance: well nourished Orientation/consciousness: patient oriented x3 Limitations: no limitations Resp: Effort & Inspection: normal respiratory effort GI: Inspection: Yes normal to inspection Palpation (GI): Soft to palpation, Tenderness to palpation present (GI) (Minimal tenderness in the right lower quadrant to deep palpation) obturator sign negative, psoas sign negative and Rovsing's sign negative, no guarding and not rigid Neuro: General: patient oriented x3 Extrem: General: Yes normal to inspection and No edema Objective Data Active Medications Calcium Carbonate (Calcium Carbonate 750 Mg Tab.Chew) 750 mg PO Q4H PRN PRN Reason: Heartburn Hydromorphone HCl (Hydromorphone Hcl 0.5 Mg/0.5 Ml Syringe) 0.5 mg IVPUSH Q3H PRN; Protocol PRN Reason: Pain, Severe (Pain Scale 7-10) Last Admin: 02/18/25 22:59 Dose: 0.5 mg Documented By: OLGAASY Acetaminophen (Ofirmev) 1,000 mg in 100 mls @ 400 mls/hr IV Q6H PRN PRN Reason: Pain, Mild (Pain Scale 1-3) Dextrose/Lactated Ringer's (D5lr) 1,000 mls @ 125 mls/hr IVCONT .Q8H GABBY Last Admin: 02/19/25 05:36 Dose: 125 mls/hr Documented By: TUMASY Piperacillin Sod/Tazobactam (Sod 3.375 gm/ Sodium Chloride) 50 mls @ 100 mls/hr IV Q6H [facility] Last Infusion: 02/19/25 03:01 Dose: Infused Documented By: OLGAASY Magnesium Hydroxide (Milk Of Magnesia 30 Ml Oral.Susp) 30 ml PO DAILY PRN PRN Reason: Constipation Ondansetron HCl (Ondansetron Hcl 4 Mg/2 Ml Vial) 4 mg IVPUSH QID PRN PRN Reason: Nausea Oxycodone HCl (Oxycodone Hcl Immed Release 5 Mg Tablet) 5 mg PO Q6H PRN PRN Reason: Pain, Moderate(Pain Scale 4-6) Sodium Chloride (0.9 % Sodium Chloride Flush 3 Ml Syringe) 3 ml IVFLUSH QSHIFT GABBY Last Admin: 02/18/25 23:05 Dose: 3 ml Documented By: NINI Zolpidem Tartrate (Zolpidem Tartrate 5 Mg Tablet) 5 mg PO BEDTIME PRN PRN Reason: Insomnia Last Admin: 02/18/25 22:55 Dose: 5 mg Documented By: NINI Labs 02/19/25 06:03 02/18/25 08:45 Labs: Laboratory Results - last 24 hr 02/18/25 02/18/25 02/19/25 08:45 13:16 06:03 MCV 89.5 90.3 MCH 30.6 30.9 MCHC 34.2 34.2 RDW 11.9 11.9 Plt Count 228 186 MPV 9.2 L 9.5 Immature Gran % (Auto) 0.5 H 0.2 Neut % (Auto) 83.0 H 54.7 Lymph % (Auto) 9.1 L 31.9 Door % (Auto) 6.9 11.1 H Eos % (Auto) 0.3 1.8 Baso % (Auto) 0.2 0.3 Lymph # (Auto) 1.6 2.0 Door # (Auto) 1.2 0.7 Eos # (Auto) 0.1 0.1 Baso # (Auto) 0.0 0.0 Abs Immat Gran (auto) 0.08 H 0.01 Absolute Neuts (auto) 14.2 H 3.4 Absolute Nucleated RBC 0.000 0.000 Nucleated RBC % (auto) 0.0 0.0 Anion Gap 13 Estim Creat Clear Calc 151.7 Estimated GFR > 60 Random Glucose 105 Lactic Acid 0.5 Calcium 9.5 Magnesium 1.7 Total Bilirubin 1.1 H Direct Bilirubin 0.3 AST 21 ALT 17 Alkaline Phosphatase 45 Total Protein 7.9 Albumin 4.7 Lipase 17 Procedures Date of Service Date of Service: 02/19/25 Progress Note: A&P Assessment and plan (1) Appendicitis: Status: Acute Plan 34-year-old male patient admitted with the complaints of right lower quadrant abdominal pain found to have early appendicitis without complication. Initially the patient's WBC was 17 and had now normalized. His abdominal exam is much improved as well. We will start a regular diet this morning. If this is well-tolerated, he may be able to be discharged later today on oral antibiotics. Patient understands and agrees with the plan. Time Spent With Patient Time: Total time managing care of this patient today ____ minutes. Quality Stroke Does the patient have a stroke diagnosis?: No VTE Prior VTE?: No VTE Risk Level:: Surgical - low VTE Device Contraindication: N/A - Device Ordered VTE Drug Contraindication: Treatment Not Indicated
[2025-02-19] MEDS: 0.9 % Sodium Chloride Flush 3 ML SYRINGE IVFLUSH (09:10)
--- NOTE | 2025-02-19 11:42 | MHC.CM.PN ---
Addendum entered by Flaquita Dyson RN 02/19/25 14:12: Medically cleared for dc home self care. Original Note: PATIENT LIVES IN A HOME WITH AND YOUNG CHILDREN. FUNCTIONALLY INDEPENDENT. DENIES USE OF DME OR SERVICES. PCP @ [facility] NO HCP. CM PROVIDED EDUCATION AND OFFERED ASSISTANCE. PATIENT DECLINED. DP: HOME SELF CARE, CAR [facility] FOR SELF TRANSP[facility]. CM WILL CONTINUE TO FOLLOW.
[2025-02-19] MEDS: iohexoL 350 MG/ML 100 ML INFUS..BTL IV (12:08)
[2025-02-19] MEDS: Diatrizoate Meglumine, Sodium 30 ML SOLUTION PO (12:09)
[2025-02-19 14:39] VITALS: BP 124/75; PULSE 80; RESP 16; TEMP 36.7; O2SAT 97
--- NOTE | 2025-02-19 16:05 | PM.DS ---
DS: Providers Provider Date of Service: 02/19/25 Date of admission: 02/18/25 13:17 Date of discharge: 02/19/25 Primary care physician: Unknown Physician Admitting clinician: Daniel Donovan Discharging clinician: Daniel Donovan DS: Diagnosis Discharge Diagnosis (1) Appendicitis: Status: Acute DS: Summary Hospital Course Hospital Course: HPI: Jose Antonio Foss is a 34 year old male presenting on 02/18/2025 with complaints of abdominal pain in the right lower quadrant. The pain began as generalized abdominal pain at approximately 03:00 in the morning . He denied any previous history of similar pain. He initially felt he needed to go to the bathroom however this did not improve his pain. The pain gradually radiated to the right lower quadrant were it remained. He denied nausea or vomiting, fever or chills. He presented to the emergency department was noted to have tenderness in the right lower quadrant. WBC was elevated at 17. CT abdomen and pelvis revealed thickened appendix with periappendiceal inflammation. No fecalith was identified. There was no evidence of fluid collection to indicate a perforation. Patient reports he is traveling to [place] on Friday02/23/2025 for vacation for 1 week. On examination the patient had some mild tenderness to deep palpation in the right lower quadrant without rebound, guarding or rigidity. There was a negative Rovsing sign. I reviewed the options in detail with the patient including proceeding to surgery verses nonoperative management with IV antibiotics. No fecalith could be identified on the CT making him a good candidate for nonoperative management especially given his mild abdominal exam and mild findings by CT. He expressed understanding and agreed with nonoperative management. He was started on Zosyn and admitted to the hospital med surg. On hospital day 2, the patient reported near complete resolution of his abdominal pain. He denied any fever, chills, nausea or vomiting. He did report feeling hungry. Laboratories revealed a normal WBC of 6.2. On examination his abdomen was very soft with minimal to no pain with deep palpation. No peritoneal signs were again identified. At the family's request, given his anticipated travel plans, a repeat CT abdomen and pelvis with oral and IV contrast was performed to be sure there was no evidence of perforation or abscess formation. Repeat CT revealed essentially no change in the appendix with no findings suggestive of appendicitis. The patient was subsequently started on a regular diet and tolerated this well without an increased abdominal pain. He was discharged on 02/19/2025 in stable condition. He was discharged home on amoxicillin/clavulanic acid 825 mg p.o. b.i.d. for 10 days. He will follow up in the office approximately 1-2 weeks. Status at Discharge Functional status at discharge: independent ambulation Overall status at discharge: patient is back to baseline Time Attestation Discharge Coordination Time (in mins): 35 Quality: Safe Use of Opioids Does Pt have an Active Cancer Diagnosis on the Problem List?: No Quality: Stroke Does the patient have a stroke diagnosis?: No Physical Exam Vital Signs: Vital Signs: Last Vital Signs Temp 98.1 F 02/19/25 14:39 Pulse 80 02/19/25 14:39 Resp 16 02/19/25 14:39 BP 124/75 02/19/25 14:39 Pulse Ox 97 02/19/25 14:39 O2 Del Method Room Air 02/19/25 14:39 BMI result Body Mass Index 23.8 Const: General: comfortable Nutritional Appearance: well nourished Orientation/consciousness: patient oriented x3 Limitations: no limitations Resp: Effort & Inspection: normal respiratory effort GI: Inspection: Yes normal to inspection Palpation (GI): Soft to palpation, Tenderness to palpation present (GI) (Minimal tenderness in the right lower quadrant to deep palpation) obturator sign negative, psoas sign negative and Rovsing's sign negative, no guarding and not rigid Neuro: General: patient oriented x3 Extrem: General: Yes normal to inspection and No edema DS: Data Data Completed and Pending Labs on day of discharge: Laboratory Results - last 24 hr 02/18/25 02/19/25 02/19/25 08:45 06:03 07:43 WBC 6.2 RBC 4.24 L Hgb 13.1 L Hct 38.3 L MCV 90.3 MCH 30.9 MCHC 34.2 RDW 11.9 Plt Count 186 MPV 9.5 Immature Gran % (Auto) 0.2 Neut % (Auto) 54.7 Lymph % (Auto) 31.9 [place] % (Auto) 11.1 H Eos % (Auto) 1.8 Baso % (Auto) 0.3 Lymph # (Auto) 2.0 [place] # (Auto) 0.7 Eos # (Auto) 0.1 Baso # (Auto) 0.0 Abs Immat Gran (auto) 0.01 Absolute Neuts (auto) 3.4 Absolute Nucleated RBC 0.000 Nucleated RBC % (auto) 0.0 Alkaline Phosphatase 45 Urine Color Dark Yellow Urine Appearance Clear Urine pH 6.0 Ur Specific [place] >= 1.030 H Urine Protein Trace Urine Glucose (UA) Negative Urine Ketones Trace Urine Blood Negative Urine Nitrite Negative Ur Leukocyte Esterase Negative Preliminary micro results at discharge 02/18/25 13:16 Blood Culture - Preliminary Blood - Venous No growth after 24 hours. 02/18/25 13:16 Blood Culture - Preliminary Blood - Venous No growth after 24 hours. Discharge Plan Discharge Anticipated Discharge Date/Time: 02/19/25 07:52 Patient Disposition: Home, Self-Care Discharge Diagnosis: Early acute appendicitis Referrals: Daniel Donovan MD [Physician] - 2 Weeks PhysicianBrady [Primary Care Provider] - 1 Week Discharge Medications: New amoxicillin-pot clavulanate 875-125 mg tablet 1 tab PO BID Qty: 20 0RF Discharge Orders: Discharge Order (Routine); Ordered 02/19/25 Ordered By: Daniel Donovan Diet: Advance to usual diet Activity on Discharge: As tolerated Stand Alone Forms: Patient Portal Discharge page Print Language: Vietnamese Care Plan Goals: Resolution of abdominal pain, return to normal activity and diet Health Concerns: abdominal pain in the right lower quadrant Plan of Treatment: IV antibiotic converted to oral antibiotic Assessment: Early acute appendicitis without perforation or abscess Discharge Date/Time: 02/19/25 14:44
== END 2025-02-19 14:44 | disposition home or self-care (01) | DRG 254 ==
LOC: HO.ED 12:55 → HO.EDOVER 13:42 → HO.S3 19:09
PROVIDERS: Physician Assistant; Admitting Provider Surgery; Emergency Provider Emergency Medicine Emergency Medical Services; PCP Physician Assistant; Visit Provider Surgery
DX: K35.80 Unspecified acute appendicitis (principal)
CPT/HCPCS: 36415; 74177; 80048; 80076; 81003; 83605; 83690; 83735; 85025; 87040; 99285; J1171; J1885; J2543; Q9967

== ENCOUNTER → 2025-02-18 08:49 | Outpatient (BNV) | payer MEDICAID, SELFPAY | PROVIDERS: Emergency Provider Emergency Medicine Emergency Medical Services; Visit Provider Surgery | DX: K35.30 Acute appendicitis with localized peritonitis, without perforation or gangrene (principal) | CPT/HCPCS: 99222; 99239; 99499 ==

== ENCOUNTER → 2025-02-18 11:55 | Outpatient (BNV) | payer MEDICAID, SELFPAY | PROVIDERS: Emergency Provider Emergency Medicine Emergency Medical Services; Visit Provider Radiology Diagnostic Radiology | DX: R10.31 Right lower quadrant pain (principal) | CPT/HCPCS: 74177 ==

== ENCOUNTER 2025-02-18 13:17 | Outpatient (BNV) | payer MEDICAID, SELFPAY | END 2025-02-19 12:12 | PROVIDERS: Admitting Provider Surgery; Emergency Provider Emergency Medicine Emergency Medical Services; Visit Provider Specialist | DX: K35.80 Unspecified acute appendicitis (principal) | CPT/HCPCS: 74177 ==

== ENCOUNTER 2025-06-10 22:09 | Emergency (ER) | payer MEDICAID, SELFPAY ==
--- NOTE | ~2025-06-10 | XR_ITS ---
CLINICAL HISTORY: fall, swelling, pain 3 views right wrist Comparison: None provided Findings: There is a small minimally displaced fracture of the medial side of the hamate. Joint spaces and joint alignment are normal. Impression: Small minimally displaced fracture of the medial side of the hamate. This document has been electronically signed by: Sly Park MD on 06/11/2025 00:12:28
--- NOTE | ~2025-06-10 | XR_ITS ---
CLINICAL HISTORY: fall, swelling, pain 3 views right hand Comparison: None provided Findings: There is a small minimally displaced fracture of the medial side of the hamate. There is no fracture within the hand. Joint spaces and joint alignment are normal. Impression: Small minimally displaced fracture of the medial side of the hamate. This document has been electronically signed by: Sly Park MD on 06/11/2025 00:14:41
[2025-06-10 22:55] VITALS: BP 140/69; PULSE 107; RESP 18; TEMP 36.7; O2SAT 97; BMI 28.5
[2025-06-11 02:53] VITALS: BP 116/72; PULSE 90; RESP 16; TEMP 36.8; O2SAT 99
--- NOTE | 2025-06-11 02:58 | ED_ITS ---
HPI - Extremity Problem General Chief complaint: Extremity Injury, Upper Stated complaint: right wrist inj Time Seen by Provider: 06/11/25 02:31 Source: patient Mode of arrival: ambulatory Limitations: no limitations History of Present Illness ED Provider: Dr. Alejandrina Brasher HPI Narrative: Patient comes to the emergency room complaining of right wrist pain. Patient states that earlier today he was playing around with his kids, and fell on the pick in his house. Patient states that he has pain in the dorsum of the right hand just below the pinky finger. Denies any other injuries. Denies hitting his head or losing consciousness, denies using blood thinners. Patient did not take any medication prior to arrival Related Data Previous Rx's ?Medication ?Instructions ?Recorded amoxicillin 875 mg-potassium 1 tab PO BID #20 tabs clavulanate 125 mg tablet acetaminophen 500 mg tablet 500 mg PO Q6H PRN fever or pain 06/11/25 #20 tabs ibuprofen 600 mg tablet 600 mg PO TID PRN pain #30 t abs 06/11/25 Allergies Allergy/AdvReac Type Severity Reaction Status Date / Time No Known Allergies (No Known Allergy Verified 06/10/25 22:58 Allergies*) Review of Systems Review of Systems: Constitutional : No Weight loss, No Fever, No Chills, No Night Sweats, No Fatigue, No Malaise ENT/Mouth : No Hearing loss, No Ear Pain, No Nasal Congestion, No Sinus Pain, No Hoarseness, No sore throat, No Rhinorrhea, No Swallowing Difficulty Eyes: No Eye Pain, No Swelling, No Redness, No Foreign Body, No Discharge, No Vision Changes Cardiovascular : No Chest Pain, No SOB, No Dyspnea on Exertion, No Orthopnea, No Edema, No Palpitations Respiratory : No Cough, No Sputum, No Wheezing, No Smoke Exposure, No Dyspnea Gastrointestinal : No Nausea, No Vomiting, No Diarrhea, No Constipation, No abdominal Pain, No Hematochezia, No Melena Genitourinary : no irregular bleeding, No Dysuria, No Urinary Frequency, No Hematuria, No Urinary Incontinence, No Urgency, No Flank Pain, No Urinary Flow Changes, No Hesitancy Musculoskeletal : Complaining of hand pain in the right side just below the pinky finger No Myalgias, No Joint Swelling Skin : No Skin Lesions, No rash Neuro : No Weakness, No Numbness, No Paresthesias, No Loss of Consciousness, No Dizziness, No Headache Psych : No Anxiety/Panic, No Depression, No SI/HI/AH/VH, No Social Issues, Heme/Lymph: No Bruising, No Bleeding,No Lymphadenopathy Endocrine : No Polyuria, No Polydipsia, No Temperature Intolerance [facility] Past Medical History Medical History Appendicitis Social History Social History Household Members: Family Housing: House Do you presently have visiting nurse or other home services: No Patient Tobacco Use Status: Never used Tobacco Smoked in Last 30 Days: No Use of substances other than those prescribed or required for medical reasons: No Advance Directives: No Advance Directives Information Provided: Yes service: No Physical Exam Exam: Exam: Appearance: Alert. Oriented X3. No acute distress. Eyes: Pupils equal, round and reactive to light. ENT: Pharynx normal. Neck: Normal inspection. Neck supple. No lymph nodes noted. No crepitus CVS: Normal heart rate and rhythm. Pulses normal. Normal S1 and S2 Respiratory: No respiratory distress. Breath sounds normal. No Wheezing. No rales Abdomen: Soft and nontender. No rigidity. No distention. Skin: Skin warm and dry. Normal skin color. Normal skin turgor. Extremities: No lower extremity edema. No Lacerations. No Rash, there is ecchymo sis on the dorsum of the right hand and swelling Neuro: Oriented X 3. No motor deficit. No sensory deficit. Moving all extremities. No slurred speech. CN 2 through 12 grossly intact Psych: calm, cooperative, normal affect Vital Signs: Vital Signs: Last Vital Signs Temp 98.3 F 06/11/25 02:53 Pulse 90 06/11/25 02:53 Resp 16 06/11/25 02:53 BP 116/72 06/11/25 02:53 Pulse Ox 99 06/11/25 02:53 O2 Del Method Room Air 06/11/25 02:53 BMI result Body Mass Index 28.5 Medical Decision Making Medical Decision Making MDM Narrative: I discussed the x-ray with the patient, patient does have a small fracture in the hamate. Patient's hand was placed in a volar splint. Patient received a dose of p.o. ibuprofen in the emergency room Patient instructed to follow-up with Orthopedics, a referral has been placed Differential Diagnosis Differential Diagnoses: The differential diagnosis associated with the presentation includes (Sprain wrist, fracture, dislocation) Independent Interpretation I performed an independent interpretation of an: Plain X-Ray Radiology Impression Discussion of test interpretation with radiology: I have reviewed the radiologist's reading. Radiologist Impression: There is a small minimally displaced fracture of the medial side of the hamate. There is no fracture within the hand. Joint spaces and joint alignment are normal. Impression: Small minimally displaced fracture of the medial side of the hamate Procedures Orthopedic Splinting/Casting Injury #1: Side: right Upper Extremity Injury Location: wrist Upper Extremity Immobilizer: volar splint Discharge Plan Discharge Clinical Impression: Fracture of hamate Patient Disposition: Home, Self-Care Instructions: Wrist Fracture in Adults (ED) Additional Instructions: Please follow-up with your primary care physician tomorrow. If you have any worsening or new symptoms, please return to the emergency room or call 911 Prescriptions: New ibuprofen 600 mg tablet 600 mg PO TID PRN (Reason: pain) Qty: 30 0RF acetaminophen 500 mg tablet 500 mg PO Q6H PRN (Reason: fever or pain) Qty: 20 0RF No Action amoxicillin-pot clavulanate 875-125 mg tablet 1 tab PO BID Qty: 20 0RF Referrals: Veronica Zendejas PA-C [Physician [facility], Orthopedics] Print Language: Colombian
[2025-06-11 03:08] VITALS: BP 116/72; PULSE 90; RESP 16; TEMP 36.8; O2SAT 99
== END 2025-06-11 03:08 | disposition home or self-care (01) ==
PROVIDERS: Emergency Provider Emergency Medicine
DX: S62.141A Displaced fracture of body of hamate [unciform] bone, right wrist, initial encounter for closed fracture (principal); W01.0XXA Fall on same level from slipping, tripping and stumbling without subsequent striking against object, initial encounter; M25.531 Pain in right wrist; Y93.9 Activity, unspecified; Y92.018 Other place in single-family (private) house as the place of occurrence of the external cause; Y99.9 Unspecified external cause status
CPT/HCPCS: 29125; 73100; 73120; 99284

== ENCOUNTER → 2025-06-10 22:19 | Outpatient (BNV) | payer MEDICAID, SELFPAY | PROVIDERS: Visit Provider Radiology Diagnostic Radiology | DX: S62.141A Displaced fracture of body of hamate [unciform] bone, right wrist, initial encounter for closed fracture (principal); M79.641 Pain in right hand; M25.531 Pain in right wrist; W19.XXXA Unspecified fall, initial encounter | CPT/HCPCS: 73100; 73120 ==

== ENCOUNTER 2025-06-21 10:42 | Outpatient (REF) | payer MEDICAID, SELFPAY ==
--- NOTE | ~2025-06-21 | XR_ITS ---
EXAMINATION: XR WRIST, RIGHT CLINICAL INFORMATION: M79.641 - Pain in right hand COMPARISON: None available. TECHNIQUE: PA, lateral, oblique, and scaphoid views of the right wrist. FINDINGS: The bones and soft tissues are normal. No fracture. Alignment is anatomic with normal joint spaces. No erosions or abnormal soft tissue calcifications. XR/XR wrist RT w scaphoid IMPRESSION: Unremarkable right wrist. Electronically signed by: Crispin Browning MD 06/21/2025 11:21 AM EDT
== END 2025-06-21 10:43 | disposition home or self-care (01) ==
LOC: HO.HOSX 10:42
DX: S62.141A Displaced fracture of body of hamate [unciform] bone, right wrist, initial encounter for closed fracture (principal); S63.054A Dislocation of other carpometacarpal joint of right hand, initial encounter; M79.641 Pain in right hand; K35.30 Acute appendicitis with localized peritonitis, without perforation or gangrene; W18.39XA Other fall on same level, initial encounter
CPT/HCPCS: 29125; 73110; 99212

== ENCOUNTER 2025-06-21 10:42 | Outpatient (AMB) | payer MEDICAID, SELFPAY ==
[2025-06-21 10:48] VITALS: BMI 28.5
--- NOTE | 2025-06-21 10:48 | MHC.OFFVIS ---
Vital Signs 06/21/25 10:48 Height 5 ft 9 in Weight 193 lb BMI 28.5 Intake Visit Reasons: FC-Rt wrist hamate fx DOI: 06/10/25 Intake Note: Jose Antonio is a 35 year old right hand dominant male, new patient, who presents today for evaluation of a right wrist hamate fracture, DOI: 06/10/25. Patient presented to [facility] ED on 06/10/25 reporting he was playing around with his kids when he fell backwards, trying to catch himself with his hand. At the ED, patient complained of pain in the dorsum of the right hand just below the pinky finger. He was placed on a volar splint and given a prescription for Ibuprofen and Tylenol. Today, partient reports he continues to have pain on the dorsal aspect of the hand. Denies numbness or tingling. Denies previous injuries or surgeries to the right hand. He continues taking Tylenol and Ibuprofen for pain with relief. Allergies No Known Allergies (No Known Allergies*) Allergy (Verified 06/21/25 10:48) HPI HPI FC-Rt wrist hamate fx DOI: 06/10/25: Details: Jose Antonio is a 35 year old right hand dominant male, new patient, who presents today for evaluation of a right wrist hamate fracture, DOI: 06/10/25. Patient presented to [facility] ED on 06/10/25 reporting he was playing around with his kids when he fell backwards, trying to catch himself with his hand. At the ED, patient complained of pain in the dorsum of the right hand just below the pinky finger. He was placed on a volar splint and given a prescription for Ibuprofen and Tylenol. Today, partient reports he continues to have pain on the dorsal aspect of the hand along with a prominent bump on the dorsal aspect of the palm at the level of the 4th metacarpal base. Denies numbness or tingling. Denies previous injuries or surgeries to the right hand. He continues taking Tylenol and Ibuprofen for pain with relief. [facility] Medical History Appendicitis Social History (Updated 06/21/25 @ 10:53 by ANABEL Jo) Household Members: Family Housing: House Do you presently have visiting nurse or other home services: No Patient Tobacco Use Status: Current someday Tobacco user service: No Current occupational status: unemployed Current occupation: rt handed Review of Systems Const All systems reviewed & are unremarkable except as noted in HPI and below Physical Exam Vital Signs: BMI result Body Mass Index 28.5 Extrem Other: Patient is alert, oriented, and in no acute distress. Neuro: Normal sensation of the tips of all digits of the right hand at this time Vascular: Cap refill brisk Pain: Tenderness to palpation noted at the right 4th metacarpal base Pain with range of motion of the right ring finger Skin: There is noted to be an area of prominence at the base of the 4th metacarpal of the right hand No lacerations or abrasions. General: No ecchymosis, erythema, or evidence of infection. Psych: Appears grossly normal Affect normal Attitude cooperative Office Procedures Casting/Splints 78194-[place] Splint Application Procedure code (CPT) selection complete Results Reviewed Results Reviewed: X-rays obtained in the office today and independently reviewed by me, Kenneth Neal PA-C, demonstrate fracture of the hamate of the right wrist with associated posterior dislocation of the CMC joint of the right 4th metacarpal. Assessment & Plan Assessment & Plan (1) Fracture of hamate of right wrist: Code(s): S62.141A - Displaced fracture of body of hamate [unciform] bone, right wrist, initial encounter for closed fracture Category: Medical (2) Closed dislocation of fourth carpometacarpal joint of right hand: Code(s): S63.054A - Dislocation of other carpometacarpal joint of right hand, initial encounter Category: Medical Plan 1. Fracture of right hamate 2. Dislocation of right 4th metacarpal Date of injury 06/11/2025 I educated the patient about the condition. I discussed both operative and nonoperative treatment options. The patient would like to proceed with surgery. The risks and benefits of operative treatment were discussed with the patient and the patient wishes to proceed with surgery. These risks include, but are not limited to, risk of damage to blood vessels, nerves, tendons, infection, recurrence, incomplete relief of preoperative symptoms, persistent pain, possible need for further surgery, and the risks associated with regional blocks and/or anesthesia. Plan is to take the patient to the operating room at some point in the next few weeks for the following procedures: 1. Right hamate and 4th CMC joint CRPP versus ORIF under general All of the preoperative paperwork including the consent was discussed today. All of the patient's questions were answered in the clinic today. The patient understands that they will be in contact with our surgical sales representative to discuss scheduling their procedure. Patient denies diabetes, blood thinners, asthma, heart issues, lung issues, kidney issues, or current smoking. Patient is placed into a dorsal wrist splint Patient is educated on proper splint care and precautions Orders: Orders XR wrist RT w scaphoid 06/21/25 M79.641 - Pain in right hand Medications: Discontinued amoxicillin-pot clavulanate 875-125 mg Discontinued Reason: Patient no longer taking 1 tab PO BID 20 tabs 0RF K35.30 - Acute appendicitis with localized peritonitis, without perforation or gangrene Coding Level of Care Code New Pt Level 4 (24056) Diagnoses Fracture of hamate of right wrist S62.141A Closed dislocation of fourth carpometacarpal joint of right hand S63.054A CPT Codes Splint - CPT: 23184-Bijziqo Splint Application ([id number])
--- OUTSIDE RECORDS SUMMARY | 2025-06-21 12:09 | XMS_ITS | Clinical Summary ---
Author Organization [employer] Address [address] [place] [address] Care Team Providers Care Php Developer Name Role Phone Unavailable Primary Care Provider Unavailabl e Social History Tobacco Use Types Packs/Day Years Used Date Smoking Tobacco: Never Assessed Sex and Gender Information Value Date Recorded Sex Assigned at Not on file Legal Sex Male 1:47 PM EST Gender Identity Not on file Sexual Orientation Not on file Plan of Treatment Health Maintenance Due Date Last Done Comments Depression Screening 1992 HIV Screening 1992 SDOH Screening 1992 Disability Screening 1992 Alcohol/Substance Use Screening 2004 Tobacco Screening 2004 Family Planning (PISQ) 2007 HPV Vaccines (1 - Male 3-dos e series) 2007 Hepatitis C Screening 2010 DTaP/Tdap/Td Vaccines (1 - Tdap) 2011 Hepatitis B Vaccines (1 of 3 - 19+ 3-dose series) 2011 COVID-19 Vaccine (1 - 2023-2 5 season) 2024 Influenza Vaccine (#1) 2025 Zoster Vaccines (1 of 2) 2042 RSV [...] Years) and At-Risk Patients (6 to 49) Years Aged Out No longer eligible b ased on patient's age to complete this topic RSV under 20 months Aged Out No longe r eligible based on patient's age to complete this topic Rotavirus Vaccines Aged Out No longer eligible based on patient's age to complete this topic
--- OUTSIDE RECORDS SUMMARY | 2025-06-21 12:09 | XMS_ITS | Clinical Summary ---
Author Organization [facility] Address [address] [place] [address] Phone Care Team Providers Care Automatic Line Set Up Mechanic Name Role Phone Shanda Lima Primary Care Provider [phone] Allergies No known active allergies Medications No known medications Surgical History Surgery Date Site/Laterality Comments HERNIA [...] - - Weight 81.6 kg (180 lb) 03/07/2025 8:33 AM EDT Height 177.8 cm (5' 10 ) 03/07/2025 8:33 AM EDT Body Mass Index 25.83 03/07/2025 8:33 AM EDT Plan of Treatment Health Maintenance Due Date Last Done Comments Pneumococcal Vaccine: Pediatrics (0 to 5 Years) and At-Risk Patients (6 to 49 Years) (1 of 2 - PCV) 2011 HIV Screening 12/02/2023 Social Influencers of Health Screening 12/02/2023 COVID-19 Vaccine ( season) 2024 Depression Screening 11/03/2024 Influenza Vaccine (#1) 2025 Cholesterol Screening (Lipid Panel) 11/19/2029 11/19/2024, 11/19/2024, [...] on patient's age to complete this topic Insurance [place] Care Teams Automatic Line Set Up Mechanic Relationship Specialty Start Date End Date Shanda Lima PA [address] [place] [id number] PCP - General 02/26/24
--- OUTSIDE RECORDS SUMMARY | 2025-06-21 12:09 | XMS_ITS | Clinical Summary ---
Author Organization [facility] Address [address] [place] [address] Care Team Providers Care Rotor Assembler Name Role Phone Shanda Lima PA-C Primary Care Provider [phone] Source Comments PLEASE NOTE, if this patient is a minor, it may be UNLAWFUL to discuss sensitive information that is contained in these records (such as FAMILY PLANNING, MENTAL HEALTH or SUBSTANCE ABUSE) with the minor patient's parent or other person without the patient's specific authorization.[facility] Allergies No known active allergies Medications naproxen (NAPROSYN) 500 mg tabletIndicatio ns:Chronic right hip pain Take 1 Tablet by mouth 2 (two) times daily with a meal 60 Tablet 4 Active fluticasone (FLONASE) 50 mcg/actuation nasal sprayIndication s:Chronic nasal congestion PLACE 1 SPRAY IN BOTH NOSTRILS ONCE DAILY FOR 14 DAYS 32 mL 1 5 Active diclofenac sodium (VOLTAREN) 1 % gelIndications: Acute pain of left shoulder APPLY 2 G TOPICALLY 2 (TWO) TIMES DAILY. 100 g 5 Active omeprazole (PRILOSEC) [address] capsuleIndicati ons:Epigastric pain TAKE 1 CAPSULE BY MOUTH EVERY DAY IN THE MORNING BEFORE BREAKFAST 90 Capsule 5 Active Active Problems Problem Noted Date Diagnosed Date [...] Molluscum contagiosum 03/20/2024 Overview (03/20/2024): 03/18/2024 - [facility] - Molluscum contagiosum of the scrotum and penile shaft Bilateral hydrocele 03/12/2024 Overview (03/12/2024): 03/11/2024 - US scrotum - Impression: Bilateral Hydroceles & Right-sided varicocele Right varicocele 03/12/2024 Overview (03/12/2024): 03/11/2024 - US scrotum - Impression: Bilateral Hydroceles & Right-sided varicocele Inguinal hernia, left repair 05/28/19, R repair 04/30/2018 Overview (08/28/2019): 05/12/18 - SURGERY consult: elective L inguinal hernia repair scheduled 05/28/18 - LEFT hernia repair 06/02/19 - robotic assisted lap RIGHT inguinal hernia repair with mesh. Done at [facility] by Dr. Black History of intussusception 07/201607/31/2017 Tobacco abuse disorder 07/31/2017 Overview (08/31/2024): Quit ~ 3 weeks ago 08/2024 Immunizations Immunization Administration Dates Next Due TDAP [...] 94 09/20/2024 1:23 PM EST Temperature 36.7 C (98.1 F) 09/20/2024 1:23 PM EST Respiratory Rate 16 09/20/2024 1:23 PM EST Oxygen Saturation 100% 09/20/2024 1:23 PM EST Inhaled Oxygen Concentration - - Weight 87.2 kg (192 lb 3.2 oz) 09/20/2024 1:23 P M EST Height 177.8 cm (5' 10 ) 09/20/2024 1:23 PM EST Body Mass Index 27.58 09/20/2024 1:23 PM EST Plan of Treatment Health Maintenance Due Date Last Done Comments Imm-Hepatitis B (1 of 3 - 19 + 3-dose series) 2011 Imm-Pneumococcal (1 of 2 - PCV) 2011 [id number] () 07/04/2024 Tobacco Cessation Counseling (#1) 09/17/2024 023 Alcohol and Drug Screen 11/03/2024 02/25/20 24, 02/25/2024, 09/18/2023, Additional history exists Depression Annual Screen 11/03/2024 09/20/2024, 04/04 Annual Wellness (Adult): Indicated (All Coverage) 09/20/2025 09/20/2024, 09/18/2023, 04/20/2019, Additional history exists Anxiety Screening 09/20/2025 09/20/2024 Hypertension Screening (#1) 09/20/2025 Imm-DTaP/Tdap/Td (8 - Td or Tdap) 09/13/2032 09/13/2022, 11/03/2013, 06/26/1999, Additional history exists HIV Screening Completed 09/18/2023 Hepatitis C Screening Completed 09/18/2023 Imm-Influenza Discontinued Procedures Procedure Name Priority Date/Time Associated Diagnosis Comments HIV 1/2 AG & AB W/RFLX (4TH GEN) Routine 09/18/2023 2:25 PM EST Screening due HEPATITIS C AB W/RFLX HCV RNA, QT, RT PCR Routine 09/18/2023 2:25 PM EST Screening due from Last 3 Months or Most Recently Relevant to Health Maintenance Results * Hep C Antibody with Reflex HCV RNA (09/18/2023 2:25 PM EST) HEPATITIS C ANTIBODY NON-REACT YAHAIRA NON-REACT YAHAIRA [facility] Comment: HCV antibody was non-reactive. There is no laboratory evidence of HCV infection. In most cases, no further action is required. However, if recent HCV exposure is suspected, a test for HCV RNA (test code 18112) is suggested. For additional information please refer to http://[employer].Choisr/faq/BOP63f3 (This link is being provided for informational/ educational purposes only.) Blood Blood / Unknown 09/18/2023 2 :25 PM EST 09/18/2023 2:26 PM EST Narrative [facility] - 09/19/2023 4:44 AM EST FASTING:NO Shanda Lima PA-C LAB - BLOOD DRAW Final Resu lt [facility] [address] [place] [id number], [facility] [address] [address] * HIV 1/2 AG & AB W/RFLX (4TH GEN) (09/18/2023 2:25 PM EST) HIV AG/AB, 4TH GEN NON-REAC TIVE NON-REAC TIVE [facility] Comment: HIV-1 antigen and HIV-1/HIV-2 antibodies were not detected. There is no laboratory evidence of HIV infection. PLEASE NOTE: This information has been disclosed to you from records whose confidentiality may be protected by state law. If your state requires such protection, then the state law prohibits you from making any further disclosure of the information without the specific written consent of the person to whom it pertains, or as otherwise permitted by law. A general authorization for the release of medical or other information is NOT sufficient for this purpose. For additional information please refer to http://education.Choisr/faq/VOB436 (This link is being provided for informational/ educational purposes only.) The performance of this assay has not been clinically validated in patients less than 2 years old. Blood Blood / Unknown 09/18/2023 2 :25 PM EST 09/18/2023 2:26 PM EST Narrative [facility] - 09/19/2023 4:44 AM EST FASTING:NO Shanda Lima PA-C LAB - BLOOD DRAW Final Resu lt [facility] [address] [id number], [facility] [address] [place] [address] from Last 3 Months or Most Recently Relevant to Health Maintenance Insurance [address] [employer], [facility] Care Teams Rotor Assembler Relationship Specialty Start Date End Date Shanda Lima PA-C [address] [place] [address] PCP - General Primary Care 09/02/23
== END 2025-06-21 11:44 | disposition home or self-care (01) ==
LOC: HO.HOS 10:43
DX: S62.141A Displaced fracture of body of hamate [unciform] bone, right wrist, initial encounter for closed fracture (principal); S63.054A Dislocation of other carpometacarpal joint of right hand, initial encounter
CPT/HCPCS: 29125; 99204

== ENCOUNTER → 2025-06-21 11:02 | Outpatient (BNV) | payer MEDICAID, SELFPAY | PROVIDERS: Visit Provider Radiology Diagnostic Radiology | DX: M79.641 Pain in right hand (principal) | CPT/HCPCS: 73110 ==

== ENCOUNTER 2025-06-27 09:03 | Day surgery (SDC) | payer MEDICAID, SELFPAY ==
--- NOTE | 2025-06-23 15:13 | P.CONAN_ITS ---
Documented by User: Claire Huber NP 06/23/25 15:13 HPI - Anesthesia Eval Consult details Narrative: 35yo M for Right 4th CRPP vs ORIF Metacarpal and Hamate PMFSH Past Medical History Medical History Appendicitis Social History Social History Household Members: Family Housing: House Are you a primary human services care specialist to a significant other at home: No Do you presently have visiting nurse or other home services: No Patient Tobacco Use Status: Current everyday Tobacco user Tobacco use type: Cigarette Cigarette Packs Per Day: 0.5 Cigarettes Per Day: 10.0 Second Hand Smoke Exposure: No Use of substances other than those prescribed or required for medical reasons: Yes Substance Use Frequency: Occasionally Have you been hit, kicked, punched, or otherwise hurt by someone within the past year? If so, by whom?: No Are you DNR?: No Advance Directives: No Advance Directives Information Provided: Yes Advance Directives on File: No Poor oral hygiene: No service: No Current occupational status: unemployed Current occupation: rt handed Meds Allergies Allergy/AdvReac Type Severity Reaction Status Date / Time No Known Allergies (No Known Allergy Verified 06/21/25 10:48 Allergies*) Assessment and Plan Assessment Anesthesia Assessment: Chart Reviewed Documented by User: Mickey Uriarte MD 06/27/25 11:42 PMFSH Past Medical History Medical History Appendicitis Functional capacity: independent ambulation Family History Family history of problems with anesthesia: No Surgical History History of Problems with Anesthesia: No Social History Social History Household Members: Family Housing: House Are you a primary human services care specialist to a significant other at home: No Do you presently have visiting nurse or other home services: No Patient Tobacco Use Status: Current everyday Tobacco user Tobacco use type: Cigarette Cigarette Packs Per Day: 0.5 Cigarettes Per Day: 10.0 Second Hand Smoke Exposure: No Use of substances other than those prescribed or required for medical reasons: Yes Substance Use Frequency: Occasionally Have you been hit, kicked, punched, or otherwise hurt by someone within the past year? If so, by whom?: No Are you DNR?: No Advance Directives: No Advance Directives Information Provided: Yes Advance Directives on File: No Poor oral hygiene: No service: No Current occupational status: unemployed Current occupation: rt handed Meds Allergies Allergy/AdvReac Type Severity Reaction Status Date / Time No Known Allergies (No Known Allergy Verified 06/21/25 10:48 Allergies*) Exam Exam Date and Time: 06/26/25 Airway Mallampati Class: II TM Dist: >3cm Neck ROM: Full Heart: rrr Lungs: cta Other: normal Assessment and Plan Final Anesthetic Review Family History of Problems with Anesthesia: No History of Problems with Anesthesia: No NPO: Yes ASA Class: II Final Preanesthetic Review: No Changes in Pt Med Stat, Meds/Allgs Chart Reviewed, Consent Obtained/Reviewed and Anes Risks/Benef Reviewed Patient Risk: Low Procedure Risk: Low Anesthetic Plan Anesthetic Plan: GA Disposition: Standard PACU
[2025-06-27] VITALS (15 sets, daily range): BP systolic 119–153; BP diastolic 72–85; PULSE 76–99; RESP 16–18; TEMP 36.4–36.7; O2SAT 96–99; BMI 27.3
--- NOTE | ~2025-06-27 | FL_ITS ---
EXAMINATION: FL GUIDANCE ONLY HISTORY: 4th CRPP vs ORIF Metacarpal and Hamate (R) COMPARISON: Correlation is made with plain films of the right wrist dated 06/21/2025. TECHNIQUE: Fluoroscopy time: 131.64 seconds. Cumulative Dose: 4.6575 mGy. DAP: 0.2815 mGym2 Images: 14. FINDINGS: Fluoroscopic spot films of the right hand demonstrate placement of 2 K wires centered at the base of the 4th metacarpal. FL/FL guidance in OR IMPRESSION: Fluoroscopy during procedure. Please see procedure report for additional information. Electronically signed by: Wojciech Cameron MD 06/30/2025 09:50 AM EDT
[2025-06-27] MEDS: Lactated Ringers 1,000 ML 100 ML IVCONT (09:26)
--- NOTE | 2025-06-27 10:17 | MHC.SHP ---
Pre-Procedural Eval Section A - 24 Hr Update-Section A only Date of Service: 06/27/25 The patient is an INPATIENT: No Changes since office visit: No Cold of Flu in the past 2 weeks, No New Medical Problems, No Changes in Medication and No Patient answered all questions The patient has been examined within 24 hours of the surgical procedure. The History & Physical has been completed within 30 days and I have reviewed it.: Yes Section B - Complete if H&P > 30 days Chief Complaint: Displaced fracture of hamate, 4/5 CMC dislocations Allergies: Allergies Allergy/AdvReac Type Severity Reaction Status Date / Time No Known Allergies (No Known Allergy Verified 06/21/25 10:48 Allergies*) Plan I have reviewed the history and physical and performed a pertinent physical examination on my patient. No changes have occurred unless specified. Time Spent With Patient Time: Total time managing care of this patient today ____ minutes.
--- NOTE | 2025-06-27 10:19 | P.OP_ITS ---
Operative Note Operative Note Date of Service: 06/27/25 Narrative: Operative Note Narrative: Preop diagnosis: 1. Right 4th CMC joint fracture dislocation 2. Possible right 5th CMC joint dislocation Postop diagnosis: 1. Right 4th CMC joint fracture dislocation 2. Right 5th CMC joint subluxation and thus instability Procedure: 1. Right 4th CMC joint closed reduction percutaneous pinning 2. Right 5th CMC joint closed reduction percutaneous pinning 3. Ulnar nerve block Surgeon: Kiersten Castro MD Evaluation Advisor: None Anesthesia: General Anesthesia Findings: 5th CMC joint dorsal subluxation demonstrating instability, with worse displacement of the 5th CMC joint dorsally Implants: 0.062 K-wires times 2 Tourniquet time: None EBL: Minimal Specimen: None Drains: None Complications: None Disposition: Brought to the recovery room in stable condition Plan: Follow-up in 10-14 days for a wound check, postop radiographs and for placement in a short-arm cast or splint Anticipate K-wire removal in 6 weeks based on interval bony healing Consider early OT after K-wire removal Indications: The patient is 35 years old with right 4th and possibly 5th CMC joint dorsal dislocations with a small fracture off the articular aspect of the hamate. . The risks and benefits of operative treatment, including but not limited to risk of damage to blood vessels, nerves, tendons, infection, recurrence, delayed or nonunion of fracture, persistent pain or numbness, incomplete resolution of preoperative symptoms, or need for further surgery were discussed with the patient and they wished to proceed with surgery. Procedure: Once consent was obtained patient was brought back to the operating suite and placed in the operating table in a supine position. Perioperative antibiotics and general anesthesia was administered by the anesthesia team. A tourniquet was applied to the proximal aspect of the right upper extremity and the limb was prepped and draped in a standard surgical fashion. Tourniquet was not inflated during the case. The FluoroScan was used during the case to assist with our fracture reduction and placement of all implants. We found the 4th CMC joint to be dislocated dorsally and the 5th CMC joint to be displaced dorsally, though to a lesser extent. This the 5th CMC joint also exhibited instability.. There was also a small avulsion fracture off of the distal articular surface of the hamate.. A closed reduction was performed on the patient's right 4th and 5th CMC joints.. While holding the 4th and 5th metacarpal bases in a reduced position, the 1st 0.062 K-wire was placed retrograde through the ulnar cortex of the 5th metacarpal and advanced obliquely through the base of the 5th and into the hamate and then the capitate. I had thought that it also passed through part of the base of the 4th metacarpal. Even though it did not, it did hold our 4th CMC dislocation in a reduced position, likely due to the ligamentous attachment between the 4th and the 5th metacarpal bases. I placed a 2nd 0.062 K-wire transversely through the base of the 5th metacarpal across the base of the 4th metacarpal and anchoring it into the base of the 3rd metacarpal. Fracture and joint alignment was assessed and found to be satisfactory fluoroscopically. I also assess the digits and found no evidence of rotational malalignment. Once satisfied with our fracture reduction and implant placement, the K-wires were bent and cut short and pin caps applied. Final fluoroscopic images were then obtained. The wounds were copiously irrigated with normal saline. An ulnar nerve block was then performed by infiltrating about the ulnar nerve at the wrist with some 1% lidocaine with epinephrine for postop pain control. A Sterile dressing and short volar splint was applied. The patient appears to have tolerated the procedure well and with no complications. All digits were well vascularized at the conclusion of the case.
[2025-06-27] MEDS: oxyCODONE HCl Immed Release 5 MG TABLET PO (13:50)
== END 2025-06-27 16:43 | disposition home or self-care (01) ==
PROVIDERS: Visit Provider Orthopaedic Surgery
PROC: (CPT 26608; principal; 2025-06-27 10:20)
DX: S62.141A Displaced fracture of body of hamate [unciform] bone, right wrist, initial encounter for closed fracture (principal); S63.054A Dislocation of other carpometacarpal joint of right hand, initial encounter; S63.051A Subluxation of other carpometacarpal joint of right hand, initial encounter; W18.39XA Other fall on same level, initial encounter; Y93.83 Activity, rough housing and horseplay; Y92.9 Unspecified place or not applicable; Y99.9 Unspecified external cause status; F17.210 Nicotine dependence, cigarettes, uncomplicated; Z56.0 Unemployment, unspecified
CPT/HCPCS: 26608 ×2; J0131; J0690; J1171; J2003; J2004; J2704; J3010

== ENCOUNTER → 2025-06-27 09:03 | Outpatient (BNV) | payer MEDICAID, SELFPAY | PROVIDERS: Visit Provider Orthopaedic Surgery | DX: S63.054A Dislocation of other carpometacarpal joint of right hand, initial encounter (principal); S63.051A Subluxation of other carpometacarpal joint of right hand, initial encounter; M25.341 Other instability, right hand | CPT/HCPCS: 26676 ==

== ENCOUNTER 2025-07-13 10:28 | Outpatient (REF) | payer MEDICAID, SELFPAY ==
--- NOTE | ~2025-07-13 | XR_ITS ---
EXAMINATION: XR HAND, RIGHT CLINICAL INFORMATION: M79.641 - Pain in right hand COMPARISON: June 10, 2025. TECHNIQUE: PA, lateral, and oblique views of the right hand. FINDINGS: 2 metallic K wires placed at the base of the fourth and fifth metacarpals and probably extending to the capitate. XR/XR hand RT min 3V IMPRESSION: Status post fixation at the base of the fourth and fifth metacarpals. Electronically signed by: Douglas Romo MD 07/13/2025 03:00 PM EDT
== END 2025-07-13 10:29 | disposition home or self-care (01) ==
LOC: HO.HOSX 10:28
PROVIDERS: Visit Provider Orthopaedic Surgery
DX: Z47.89 Encounter for other orthopedic aftercare (principal); S62.141A Displaced fracture of body of hamate [unciform] bone, right wrist, initial encounter for closed fracture; S63.054A Dislocation of other carpometacarpal joint of right hand, initial encounter; S63.051A Subluxation of other carpometacarpal joint of right hand, initial encounter; Z98.890 Other specified postprocedural states
CPT/HCPCS: 73130; 99212

== ENCOUNTER 2025-07-13 13:49 | Outpatient (AMB) | payer MEDICAID, SELFPAY ==
--- NOTE | 2025-07-13 13:57 | A.OFFVIS_ITS ---
Intake Visit Reasons: PO RT 4th MC/hamate CRPP v ORIF 06/27/25 AR Intake Note: Jose Antonio 35 yr old right hand dominant male presents today for his P.O visit for his right 4th MC/hamate CRPP DOS 06/27/[address] Castro. Dressing removed in office and xrays updated. States he has swelling and pain in his sma ll finger and mild pain , Allergies No Known Allergies (No Known Allergies*) Allergy (Verified 07/13/25 14:07) HPI HPI PO RT 4th MC/hamate CRPP v ORIF 06/27/25 AR: Details: Jose Antonio is a 35 year old right hand dominant man who presents S/P right 4th & 5th CMC joint CRPP, DOS: 06/27/25. He fell on 06/10/25. He complains of pain & swelling in his small finger. 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 [facility] Medical History Appendicitis Social History Household Members: Family Housing: House Are you a primary live in caregiver to a significant other at home: No Do you presently have visiting nurse or other home services: No Patient Tobacco Use Status: Current everyday Tobacco user Tobacco use type: Cigarette Cigarette Packs Per Day: 0.5 Cigarettes Per Day: 10.0 Second Hand Smoke Exposure: No service: No Current occupational status: unemployed Current occupation: rt handed Review of Systems Const All systems reviewed & are unremarkable except as noted in HPI and below Physical Exam Const General: no acute distress and alert Orientation/consciousness: patient oriented x3 Neuro General: patient oriented x3 Extrem Other: The patient was alert oriented and in no acute distress The pin sites are healing well with no erythema drainage or evidence of infection. Sutures removed and Steri-Strips applied Some stiffness in the ring & small fingers, in the MCP & PIP joints We worked on ROM exercises today in clinic Ring fingertip almost to palm, but small finger to ~40 degrees at the MCP joint and the fingertip ~3-4cm from the palm Sensation is intact Cap refill is brisk Radiographs: 3 views of the right hand were taken and viewed by me today in clinic. They show a 4th CMC joint fracture with satisfactory reduction, fracture alignment, and position of both K-wires. There is also a hamate fracture with satisfactory fracture alignment. Psych Appearance: grossly normal Affect: normal affect Attitude: cooperative Assessment & Plan Assessment & Plan (1) Closed dislocation of fourth carpometacarpal joint of right hand: Code(s): S63.054A - Dislocation of other carpometacarpal joint of right hand, initial encounter Category: Medical (2) Subluxation of carpometacarpal (CMC) joint of right hand: Comment: 5th Code(s): S63.051A - Subluxation of other carpometacarpal joint of right hand, initial encounter Category: Medical (3) Fracture of hamate of right wrist: Code(s): S62.141A - Displaced fracture of body of hamate [unciform] bone, right wrist, initial encounter for closed fracture Category: Medical Plan Assessment & Plan: 1. Right 4th CMC joint fracture dislocation, S/P CRPP DOS: 06/27/25 DOI: 06/10/25 2. Right 5th CMC joint subluxation, S/P CRPP DOS: 06/27/25 DOI: 06/10/25 3. Right hamate fracture DOI: 06/10/25 The patient appears to be doing well post-operatively I educated him about the post-operative course I explained the signs and symptoms of infection, if the patient develops any new or worsening erythema, drainage, pain, or warmth they should contact the clinic or attend the ED. He was placed in a short arm cast, to be worn for the next 4 weeks I discussed activity modifications, he is to lift nothing heavier than a cellphone for the next 6-8 weeks. 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 Anticipate OT referral following K-wire removal Scribed for Kiersten Castro MD by Brian Collier, medical receptionist assistant, on 07/13/25 at 2:05 PM, EST. Orders: Orders XR hand RT min 3V Today M79.641 - Pain in right hand Medications: Discontinued oxycodone-acetaminophen 5-325 mg Partial Fill upon patient request. Discontinued Reason: Patient Completed Course 1 tab PO Q6H PRN 10 tabs 0RF Pain Coding Level of Care Code Global (68708) Diagnoses Closed dislocation of fourth carpometacarpal joint of right hand S63.054A Subluxation of carpometacarpal (CMC) joint of right hand S63.051A Fracture of hamate of right wrist S62.141A
--- OUTSIDE RECORDS SUMMARY | 2025-07-13 16:54 | XMS_ITS | Clinical Summary ---
Author Organization [employer] Address [address] [facility] [address] [place] [address] Care Team Providers Care Linux Programmer Name Role Phone Unavailable Primary Care Provider Unavailabl e Encounters Date Type Department Care Team Description 06/22/2025 Telephone [facility] [address] [place] [phone] Blake Abreu MD Appointment Request 06/22/2025 Telephone [facility] [address] [place] [address] Blake Abreu MD Appointment Request; Referral from Last 3 Months Social History Tobacco Use Types Packs/Day Years Used Date Smoking Tobacco: Never Assessed Sex and Gender Information Value Date Recorded Sex Assigned at Not on file Legal Sex Male 1:47 PM EST Gender Identity Not on file Sexual Orientation Not on file Plan of Treatment Health Maintenance Due Date Last Done Comments Depression Screening 1992 SDOH Screening 1992 Disability Screening 1992 Alcohol/Substance Use Screening 2004 Tobacco Screening 2004 Family Planning (PISQ) 2007 HPV Vaccines (1 - Male 3-dos e series) 2007 Hepatitis C Screening 2010 Hepatitis B Vaccines (1 of 3 - 19+ 3-dose series) 2011 DTaP/Tdap/Td Vaccines (2 - T d or Tdap) 11/03/2023 11/03/2013 COVID-19 Vaccine ( - 2023-2 5 season) 2025 Influenza Vaccine (#1) 2025 Zoster Vaccines (1 of 2) 2042 RSV Patients and Patients Aged 60 years or older (1 - 1-dose 75+ series) 2067 HIV Screening Completed 09/18/2023, 09/18/2023 HIB Vaccines Aged Out No longer [...] age to complete this topic Pneumococcal Vaccine: Pediatrics (0 to 5 Years) [...]
--- OUTSIDE RECORDS SUMMARY | 2025-07-13 16:54 | XMS_ITS | Clinical Summary ---
Author Organization [facility] Address [address] [place] [address] Care Team Providers Care Medicaid Eligibility Specialist Name Role Phone Shanda Lima PA-C Primary Care Provider [phone] Source Comments PLEASE NOTE, if this patient [...] Molluscum contagiosum 03/20/2024 Overview (03/20/2024): 03/18/2024 - [facility] - Molluscum contagiosum of the scrotum [...] inguinal hernia repair with mesh. Done at [facility] by Dr. Black History of intussusception [...] Imm-Pneumococcal (1 of 2 - PCV) 2011 Tobacco Cessation Counseling (#1) 09/17/2024 023 Alcohol and Drug Screen 11/03/2024 02/25/20 24, 02/25/2024, 09/18/2023, Additional history exists Depression Annual Screen 11/03/2024 09/20/2024, 04/04 [id number] ( season) 2025 Annual Wellness (Adult): Indicated (All Coverage) 09/20/2025 [...] HEPATITIS C ANTIBODY NON-REACT YAHAIRA NON-REACT YAHAIRA [employer] Comment: HCV antibody was non-reactive. There is no laboratory evidence of HCV infection. In most cases, no further action is required. However, if recent HCV exposure is suspected, a test for HCV RNA (test code 94882) is suggested. For additional information please refer to http://hipages.com.au.[employer]/faq/SIH74l7 (This link is being provided for informational/ educational purposes only.) Blood Blood / Unknown 09/18/2023 2 :25 PM EST 09/18/2023 2:26 PM EST Narrative [facility] - 09/19/2023 4:44 AM EST FASTING:NO Shanda Lima PA-C LAB - BLOOD DRAW Final Resu lt [facility] [address] [place] [address], [facility] [address] [phone] * HIV 1/2 AG & AB W/RFLX (4TH GEN) (09/18/2023 2:25 PM EST) HIV AG/AB, 4TH GEN NON-REAC TIVE NON-REAC TIVE [facility] Comment: HIV-1 antigen and HIV-1/HIV-2 antibodies [...] purpose. For additional information please refer to http://education.[employer]/faq/PAQ701 (This link is being provided for informational/ educational purposes only.) The performance of this assay has not been clinically validated in patients less than 2 years old. Blood Blood / Unknown 09/18/2023 2 :25 PM EST 09/18/2023 2:26 PM EST Narrative [facility] - 09/19/2023 4:44 AM EST FASTING:NO Shanda Lima PA-C LAB - BLOOD DRAW Final Resu lt [facility] [address] [address], [facility] [address] [place] [address] from Last 3 Months or Most Recently Relevant to Health Maintenance Insurance [address] [employer], [facility] Care Teams Medicaid Eligibility Specialist Relationship Specialty Start Date End Date Shanda Lima PA-C [address] [place] [address] PCP - General Primary Care 09/02/23
--- OUTSIDE RECORDS SUMMARY | 2025-07-13 16:54 | XMS_ITS | Clinical Summary ---
Author Organization [facility] Address [address] [place] [address] Phone Care Team Providers Care Yarn Dyer Name Role Phone Shanda Lima Primary Care Provider Allergies No known active allergies Medications No [...] 12/02/2023 Social Influencers of Health Screening 12/02/2023 Depression Screening 11/03/2024 COVID-19 Vaccine (2023- season) 2025 Influenza Vaccine (#1) 2025 Cholesterol Screening (Lipid [...] to complete this topic Insurance [place] Care Teams Yarn Dyer Relationship Specialty Start Date End Date Shanda Lima PA [address] [place] [id number] PCP - General 02/26/24
--- OUTSIDE RECORDS SUMMARY | 2025-07-13 16:54 | XMS_ITS | Encounter Summary ---
Author Organization [employer] Address [address] [facility] [address] [place] [address] Care Team Providers Care Act English Tutor Name Role Phone Unavailable Primary Care Provider Unavailabl e Reason for Visit * Reason Onset Date Comments Appointment Request 06/22/2025 Referral 06/22/2025 Encounter Details Date Type Department Care Team (Late st Contact Info) Description 06/22/2025 Telephone [facility] [address] [place] [address] Blake Abreu MD [address] [place] [address] Appointment Request; Referral Social History Tobacco Use Types Packs/Day Years Used Date Smoking Tobacco: Never Assessed Sex and Gender Information Value Date Recorded Sex Assigned at Not on file Legal Sex Male 1:47 PM EST Gender Identity Not on file Sexual Orientation Not on file documented as of this encounter Miscellaneous Notes * Telephone Encounter - Madeline Cantrell - 06/22/2025 8:06 AM EDT TC from Luh at [facility] stating pt has an urgent surgery and requires an insurancereferral. Luh will contact pt to inform him that he needs to request a new appointment. Luh is also requesting a call back. Pt insurance [facility] / [id number] Please contact Luh at [phone] documented in this encounter Plan of Treatment Not on file documented as of this encounter Visit Diagnoses Not on filedocumented in this encounter
--- OUTSIDE RECORDS SUMMARY | 2025-07-13 16:54 | XMS_ITS | Encounter Summary ---
Author Organization [employer] [facility] Address [address] [facility] [address] [place] [address] Care Team Providers Care Field Crew Chief Name Role Phone Unavailable Primary Care Provider Unavailabl e Reason for Visit * Reason Onset Date Comments Appointment Request 06/22/2025 Encounter Details Date Type Department Care Team (Late st Contact Info) Description 06/22/2025 Telephone [facility] [address] [place], [place] [phone] Blake Abreu MD [address] [place], [place] [phone] Appointment Request Social History Tobacco Use Types Packs/Day Years Used Date Smoking Tobacco: Never Assessed Sex and Gender Information Value Date Recorded Sex Assigned at Not on file Legal Sex Male 1:47 PM EST Gender Identity Not on file Sexual Orientation Not on file documented as of this encounter Miscellaneous Notes * Telephone Encounter - Donaldo Walden - 06/22/2025 9:14 AM EDT This request is placed on hold until [facility] returns call . * Telephone Encounter - Madeline Cantrell - 06/22/2025 8:30 AM EDT TC from caller requesting NEW PATIENT visit . DX : N/A Medical Concern: Urgent surgery with [facility] Surgery Day 06/27 Insurance name : [employer] Location : [place] Demographic information updated Contact pt at [phone] documented in this encounter Plan of Treatment Not on file documented as of this encounter Visit Diagnoses Not on filedocumented in this encounter
== END 2025-07-13 15:02 | disposition home or self-care (01) ==
LOC: HO.HOS 13:49
PROVIDERS: Visit Provider Orthopaedic Surgery
DX: S63.054A Dislocation of other carpometacarpal joint of right hand, initial encounter (principal); S63.051A Subluxation of other carpometacarpal joint of right hand, initial encounter; S62.141A Displaced fracture of body of hamate [unciform] bone, right wrist, initial encounter for closed fracture
CPT/HCPCS: 99024

== ENCOUNTER → 2025-07-13 13:54 | Outpatient (BNV) | payer MEDICAID, SELFPAY | PROVIDERS: Visit Provider Radiology Diagnostic Radiology | DX: M79.641 Pain in right hand (principal); S62.314D Displaced fracture of base of fourth metacarpal bone, right hand, subsequent encounter for fracture with routine healing; S62.316D Displaced fracture of base of fifth metacarpal bone, right hand, subsequent encounter for fracture with routine healing | CPT/HCPCS: 73130 ==

== ENCOUNTER 2025-08-01 10:14 | Outpatient (AMB) | payer MEDICAID, SELFPAY ==
[2025-08-01 10:15] VITALS: BMI 27.3
--- NOTE | 2025-08-01 10:15 | A.OFFVIS_ITS ---
Vital Signs 08/01/25 10:15 Height 5 ft 10 in Weight 190 lb BMI 27.3 Intake Visit Reasons: PO: Right 4th & 5th CRPP 06/27/25 AR- cast change Intake Note: Jose Antonio is a 35 year old right hand dominant male who presents today post- operatively for a cast change status post Right 4th & 5th CMC CRPP performed by Dr. Castro on 06/27/25. At his last visit with Dr. Castro, 07/13/25, he was placed in a short arm cast to be worn for 4 weeks. Patient has a PO appt scheduled with Dr. Castro on 08/10/25 for possible K-wire removal, OT referral discussion, and work status. Patient reports today he was playing darts with his son and [id number], using his right hand. He is complaining of pain on the dorsal aspect of the right hand. Cast removed for evaluation. Allergies No Known Allergies (No Known Allergies*) Allergy (Verified 08/01/25 10:16) HPI HPI PO: Right 4th & 5th CRPP 06/27/25 AR- cast change: Details: Jose Antonio is a 35 year old right hand dominant male who presents today post- operatively for a cast change status post Right 4th & 5th CMC CRPP performed by Dr. Castro on 06/27/25. At his last visit with Dr. Castro, 07/13/25, he was placed in a short arm cast to be worn for 4 weeks. Patient has a PO appt scheduled with Dr. Castro on 08/10/25 for possible K-wire removal, OT referral discussion, and work status. Patient reports today he was playing darts with his son and kkvnuypi-[id number], using his right hand.The patient reports that while doing that, he appreciated a feeling of something shifting, and then since then He is complaining of pain on the dorsal aspect of the right hand. Cast removed for evaluation. [facility] Medical History Appendicitis Social History Household Members: Family Housing: House Are you a primary pet care technician to a significant other at home: No Do you presently have visiting nurse or other home services: No Patient Tobacco Use Status: Current everyday Tobacco user Tobacco use type: Cigarette Cigarette Packs Per Day: 0.5 Cigarettes Per Day: 10.0 Second Hand Smoke Exposure: No service: No Current occupational status: unemployed Current occupation: rt handed Review of Systems Const All systems reviewed & are unremarkable except as noted in HPI and below Physical Exam Vital Signs: BMI result Body Mass Index 27.3 Const General: no acute distress and alert Orientation/consciousness: patient oriented x3 Neuro General: patient oriented x3 Extrem Other: The patient was alert oriented and in no acute distress The pin sites are healing well with no erythema drainage or evidence of infection. Sutures removed and Steri-Strips applied Some stiffness in the ring & small fingers, in the MCP & PIP joints We worked on ROM exercises today in clinic Ring fingertip almost to palm, but small finger to ~40 degrees at the MCP joint and the fingertip ~3-4cm from the palm Sensation is intact Cap refill is brisk Radiographs: 3 views of the right hand were taken and viewed by me today in clinic. They show a 4th CMC joint fracture with satisfactory reduction, fracture alignment, and position of both K-wires. There is also a hamate fracture with satisfactory fracture alignment. Psych Appearance: grossly normal Affect: normal affect Attitude: cooperative Office Procedures Casting/Splints 59568-Dpke/Wrist Cast Application Procedure code (CPT) selection complete Assessment & Plan Assessment & Plan (1) Closed dislocation of fourth carpometacarpal joint of right hand: Code(s): S63.054A - Dislocation of other carpometacarpal joint of right hand, initial encounter Category: Medical (2) Subluxation of carpometacarpal (CMC) joint of right hand: Comment: 5th Code(s): S63.051A - Subluxation of other carpometacarpal joint of right hand, initial encounter Category: Medical (3) Fracture of hamate of right wrist: Code(s): S62.141A - Displaced fracture of body of hamate [unciform] bone, right wrist, initial encounter for closed fracture Category: Medical Plan Assessment & Plan: 1. Right 4th CMC joint fracture dislocation, S/P CRPP DOS: 06/27/25 DOI: 06/10/25 2. Right 5th CMC joint subluxation, S/P CRPP DOS: 06/27/25 DOI: 06/10/25 3. Right hamate fracture DOI: 06/10/25 The patient appears to be doing well post-operatively I educated him about the post-operative course I explained the signs and symptoms of infection, if the patient develops any new or worsening erythema, drainage, pain, or warmth they should contact the clinic or attend the ED. He was placed in a short arm cast, to be worn until follow-up no further dart playing or other strenuous activities of the right hand I discussed activity modifications, he is to lift nothing heavier than a cellphone for the next 4-6 weeks. They should also avoid any heavy impact activities, falls, or sports activities for the next 8 weeks He will perform gentle finger ROM exercises at home He should avoid any underwater activities follow-up for previously scheduled appointment, sooner with any acute concerns Orders: Orders XR wrist RT min 3V Today M25.531 - Pain in right wrist Coding Level of Care Code Global (25487) Diagnoses Closed dislocation of fourth carpometacarpal joint of right hand S63.054A Subluxation of carpometacarpal (CMC) joint of right hand S63.051A Fracture of hamate of right wrist S62.141A CPT Codes Casting - CPT: 64425-Nhjt/Wrist Cast Application ([id number])
--- OUTSIDE RECORDS SUMMARY | 2025-08-01 11:22 | XMS_ITS | Encounter Summary ---
Author Organization [employer] Address [address] [facility] [address] [place] [address] Care Team Providers Care Resort Desk Clerk Name Role Phone Unavailable Primary Care Provider Unavailabl e Reason for Visit * Reason Onset Date Comments Appointment Request 06/22/2025 Referral 06/22/2025 Encounter Details Date Type Department Care Team (Late st Contact Info) Description 06/22/2025 Telephone [facility] [address] [place] [address] Blake Abreu MD [address] [place] [address] Appointment Request; Referral Social History Tobacco Use [...] 8:06 AM EDT TC from Luh at [facility] stating pt has an urgent surgery and requires an insurancereferral. Luh will contact pt to inform him that he needs to request a new appointment. Luh is also requesting a call back. Pt insurance [facility] / [id number] Please contact Luh at [phone] documented in this encounter Plan of Treatment Not on file documented as of this encounter Visit Diagnoses Not on filedocumented in this encounter
--- OUTSIDE RECORDS SUMMARY | 2025-08-01 11:22 | XMS_ITS | Data Portability ---
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 He had been on xceg-gao-ifttmoa decongestant preparations for many years. Fortunately he [...] 32 mcg/actuati on nasal spray 2024 025 [facility]/Pharmacy #[id number], [address] [facility] [place], [address], 09:49:20 Patient TargetsNo targets recorded. Patient InstructionsNo instructions recorded. Reason for Referral None Reported. Results Created Date Observation Date Name Description Value Unit Range Abnormal Flag Note LastModifiedBy Organization Detail LastModifiedTime 11/15/1911/11/2024 CT, maxil lofac ial, w/o contr ast No observ ation record ed. [email or web address], [address], 11/18/2024 12:59:59 Result Notes None recorded. Problems Name Problem SNOMED Code Status Onset Date Resolution Date Notes Provider Name and Address Organization Details Recorded Time Deviated nasal septum 422986278 Active 2024 SAYDA SANCHEZ MD [address] [place] [address], [place], [phone], [facility] - [facility] 5 09:48:29 Hypertrophy of nasal turbinates 49661588 Active 2024 SAYDA SANCHEZ MD [address] [place] [address], [place], [phone], [facility] - [facility] [place] 5 09:48:34 Chronic sinusitis 89232590 Active 2024 SAYDA SANCHEZ MD [address] [place] [address], [place], [phone], [facility] - [facility] [place] 09:48:39 Problem Notes None recorded. Procedures Surgical History Date Name Laterality Status Provider Name and Address Organization Details Recorded Time JMSNasal/Sinus Endoscopy completed SAYDA LYNN MD [address] [address], [place], [address], [place] - [facility] 11/18/2024 09:50:34 Imaging Results None recorded. Procedure Notes None recorded. Medical Equipment None [...] Available No t Available Vitals Date Recorded Systolic And Diastolic Provider Name and Address Organization Details Last Updated DateTime 11/18/2024 120/90 mm[Hg] SAYDA LYNN MD [address] [place] [address], [phone], [facility] 11/18/2024 09:51:04 Date Recorded Body height Body mass index (BMI) Body weight Provider Name and Address Organization Details Last Updated DateTime 11/18/2024 175.26 cm 28.1 kg/m2 57909.55 g Abrahan Casillas [facility] 11/18/2024 09:11:30 Social History Question Answer Notes LastModified by Organizat ion Details LastModified Time Tobacco Smoking Status Former Smoker SAYDA LYNN MD [address] [place] [address], [phone], [facility] 11/18/2024 09:42:30 When Did You Quit Smoking? [...] Disorder N Anesthesia Complications N Heart Attack (ND) N Other Skin Condition N Diabetes N Rhinitis N Bleeding Disorder N Food Allergy N Arthritis N Hearing Loss N Hyperlipidemia N Cancer N Stroke N Dementia N Nasal polyps N Asthma N High Cholesterol N Sleep Disorder N GERD/Reflux N Liver Disease N Headaches N Fibromyalgia N Hypertension N Speech Delay N Kidney Disease N Past Encounters Encounter ID Performer Location Encounter Start Date Encounter Closed Date Diagnosis/Indication Diagnosis SNOMED-CT Code Diagnosis ICD10 Code Diagnosis IMO Codes Diagnosis Note [id number] SAYDA NEELY MD [facility] [address] [address] 11/18/2024 09:04:30 11/18/2024 09:52:00 Deviated nasal septum 665164920 J34.2 Hypertroph y of nasal turbinates 31936135 J34.3 Chronic sinusitis 924243 00 J32.9 Health Concerns Section Related Observation LastModified by Organization Detai ls LastModified Time None Recorded Concern Status LastModified by Organization Details LastModified Time None Recorded Advance Directives Directive None Recorded Payers Insurance Date Sequence Insurance Name Policy Number Policy Schneider Covered Member ID Schneider Member ID Guarantor Name 11/24/2024 1 [place] [facility] (MEDICAID) Jose Antonio L Pisarenko [id number] Jose Antonio Pisjennynko Notes Date Note Type Note Provider Name and Address Organization Details Recorded Time 11/18/2024 text/html ROS as noted in the HPI 34-year-old male seen for an opinion regarding chronic nasal congestion. He was using chad-hnc-kzmoikp decongestant preparations for many years. He was able to stop those in August but feels the congestion has persisted. He recently had a CT scan which showed moderate thickening of the left maxillary sinus without any air-fluid levels. SAYDA LYNN MD [address] [place] [address], [phone], [facility] - [facility] 11/18/2024 09:51:33
--- OUTSIDE RECORDS SUMMARY | 2025-08-01 11:22 | XMS_ITS | Clinical Summary ---
Author Organization [employer] Address [address] [facility] [address] [place] [address] Care Team Providers Care Muck Miner Name Role Phone Unavailable Primary Care Provider Unavailabl e Encounters Date Type Department Care Team Description 06/22/2025 Telephone [facility] [address] [place] [address] Blake Abreu MD Appointment Request 06/22/2025 Telephone [facility] [address] [place] [address] Blake Abreu MD Appointment Request; Referral from [...]
--- OUTSIDE RECORDS SUMMARY | 2025-08-01 11:22 | XMS_ITS | Clinical Summary ---
Author Organization [facility] Address [address] [place] [address] Phone Care Team Providers Care Extender Name Role Phone Shanda Lima Primary Care Provider [phone] Allergies No known active allergies Medications No [...] to complete this topic Insurance [place] Care Teams Extender Relationship Specialty Start Date End Date Shanda Lima PA [address] [place] [phone] PCP - General 02/26/24
--- OUTSIDE RECORDS SUMMARY | 2025-08-01 11:22 | XMS_ITS | Clinical Summary ---
Author Organization [facility] Address [address] [place] [address] Care Team Providers Care Medical Review Specialist Name Role Phone Shanda Lima PA-C Primary Care Provider [phone] Source Comments PLEASE NOTE, if this patient [...] Molluscum contagiosum 03/20/2024 Overview (03/20/2024): 03/18/2024 - [facility] - Molluscum contagiosum of [...] inguinal hernia repair with mesh. Done at [facility] by Dr. Black History of intussusception 07/201607/31/2017 [...] Imm-Pneumococcal (1 of 2 - PCV) 2011 Imm-HPV (1 - 3-dose SCDM series) 2019 Tobacco Cessation Counseling (#1) 09/17/2024 023 Alcohol and Drug Screen 11/03/2024 02/25/20 24, 02/25/2024, 09/18/2023, Additional history exists Depression Annual Screen 11/03/2024 09/20/2024, 04/04 Snj-UNOPX-04 ( season) 2025 Annual Wellness (Adult): Indicated [...] HEPATITIS C ANTIBODY NON-REACT YAHAIRA NON-REACT YAHAIRA [facility] Comment: HCV antibody was non-reactive. There is no laboratory evidence of HCV infection. In most cases, no further action is required. However, if recent HCV exposure is suspected, a test for HCV RNA (test code 66759) is suggested. For additional information please refer to http://education.groopify/faq/ZHV02x8 (This link is being provided for informational/ educational purposes only.) Blood Blood / Unknown 09/18/2023 2 :25 PM EST 09/18/2023 2:26 PM EST Narrative [facility] - 09/19/2023 4:44 AM EST FASTING:NO Shanda Lima PA-C LAB - BLOOD DRAW Final Resu lt [facility] [address] [place] [phone], [facility] [address] [place] [phone] * HIV 1/2 AG & AB W/RFLX (4TH GEN) (09/18/2023 2:25 PM EST) HIV AG/AB, 4TH GEN NON-REAC TIVE NON-REAC TIVE [facility] Comment: HIV-1 antigen and HIV-1/HIV-2 antibodies were [...] purpose. For additional information please refer to http://education.MePlease.Foodyn/faq/ZNH985 (This link is being provided for informational/ educational purposes only.) The performance of this assay has not been clinically validated in patients less than 2 years old. Blood Blood / Unknown 09/18/2023 2 :25 PM EST 09/18/2023 2:26 PM EST Narrative [facility] - 09/19/2023 4:44 AM EST FASTING:NO Shanda Lima PA-C LAB - BLOOD DRAW Final Resu lt [facility] [address] [address], [facility] [address] [phone] from Last 3 Months or Most Recently Relevant to Health Maintenance Insurance [address] [employer], [employer] Care Teams Medical Review Specialist Relationship Specialty Start Date End Date Shanda Lima PA-C [address] [place] [address] PCP - General Primary Care 09/02/23
--- OUTSIDE RECORDS SUMMARY | 2025-08-01 11:22 | XMS_ITS | Encounter Summary ---
Author Organization [employer] [facility] Address [address] [facility] 7t [place] [address] Care Team Providers Care Call Center Recruiter Name Role Phone Unavailable Primary Care Provider Unavailabl e Reason for Visit * Reason Onset Date Comments Appointment Request 06/22/2025 Encounter Details Date Type Department Care Team (Late st Contact Info) Description 06/22/2025 Telephone [facility] [address] [place], [place] [phone] Blake Abreu MD [address] [place], [place] [phone] Appointment Request Social History Tobacco Use Types [...] This request is placed on hold until [facility] returns call . * Telephone Encounter - Madeline Cantrell - 06/22/2025 8:30 AM EDT TC from caller requesting NEW PATIENT visit . DX : N/A Medical Concern: Urgent surgery with [facility] Surgery Day 06/27 Insurance name : [employer] Location : [place] Demographic information updated Contact pt at [phone] documented in this encounter Plan of Treatment Not on file documented as of this encounter Visit Diagnoses Not on filedocumented in this encounter
== END 2025-08-01 11:49 | disposition home or self-care (01) ==
LOC: HO.HOS 10:14
DX: S63.054A Dislocation of other carpometacarpal joint of right hand, initial encounter (principal); S63.051A Subluxation of other carpometacarpal joint of right hand, initial encounter; S62.141A Displaced fracture of body of hamate [unciform] bone, right wrist, initial encounter for closed fracture
CPT/HCPCS: 29075; 99024

== ENCOUNTER 2025-08-01 10:14 | Outpatient (REF) | payer MEDICAID, SELFPAY ==
--- NOTE | ~2025-08-01 | XR_ITS ---
EXAMINATION: XR WRIST, RIGHT CLINICAL INFORMATION: M25.531 - Pain in right wrist COMPARISON: 07/13/2025, 06/21/2025, 06/10/2025 TECHNIQUE: PA, lateral, and oblique views of the right wrist. FINDINGS: There are [address], one traversing the proximal second through fifth metacarpals, and the second traversing the fifth metacarpal extending into the capitate bone. These are unchanged in appearance and alignment. Subtle fractures previously described are poorly seen on these radiographs. There is grossly anatomic alignment of the hand and wrist. Joint spaces appear preserved. No soft tissue abnormalities are present. XR/XR wrist RT min 3V IMPRESSION: K wire fixation as detailed. No significant interval change since 07/13/2025. Electronically signed by: Evan Cook MD 08/01/2025 11:09 AM EDT
== END 2025-08-01 10:15 | disposition home or self-care (01) ==
LOC: HO.HOSX 10:14
DX: S62.141D Displaced fracture of body of hamate [unciform] bone, right wrist, subsequent encounter for fracture with routine healing (principal); S63.054D Dislocation of other carpometacarpal joint of right hand, subsequent encounter; S63.051D Subluxation of other carpometacarpal joint of right hand, subsequent encounter
CPT/HCPCS: 29075; 73110; 99212

== ENCOUNTER → 2025-08-01 10:41 | Outpatient (BNV) | payer MEDICAID, SELFPAY | PROVIDERS: Visit Provider Radiology Diagnostic Radiology | DX: M25.531 Pain in right wrist (principal) | CPT/HCPCS: 73110 ==

== ENCOUNTER 2025-08-10 09:04 | Outpatient (REF) | payer MEDICAID, SELFPAY ==
--- NOTE | ~2025-08-10 | XR_ITS ---
EXAMINATION: XR HAND 3 OR MORE VIEWS RIGHT HISTORY: M79.641 - Pain in right hand COMPARISON: Comparison is made with the prior examination dated 07/13/2025. FINDINGS: Three views of the right hand are submitted. Osseous mineralization is normal. Again seen are K wires through the 3rd through 5th metacarpal bases. No fracture is visible. The joint spaces are preserved. The soft tissues are unremarkable. XR/XR hand RT min 3V IMPRESSION: Internal fixation of the 3rd through 5th metacarpal bases. Electronically signed by: Wojciech Cameron MD 08/10/2025 02:19 PM EDT
== END 2025-08-10 09:05 | disposition home or self-care (01) ==
LOC: HO.HOSX 09:04
PROVIDERS: Visit Provider Orthopaedic Surgery
DX: S63.054D Dislocation of other carpometacarpal joint of right hand, subsequent encounter (principal); S62.141D Displaced fracture of body of hamate [unciform] bone, right wrist, subsequent encounter for fracture with routine healing; S63.051D Subluxation of other carpometacarpal joint of right hand, subsequent encounter; X58.XXXD Exposure to other specified factors, subsequent encounter
CPT/HCPCS: 73130; 99212

== ENCOUNTER 2025-08-10 13:30 | Outpatient (AMB) | payer MEDICAID, SELFPAY ==
--- NOTE | 2025-08-10 13:55 | A.OFFVIS_ITS ---
Vital Signs 08/10/25 13:56 Height 5 ft 10 in Weight 190 lb BMI 27.3 Intake Visit Reasons: PO RT 4th MC/hamate CRPP v ORIF 06/27/25 AR Intake Note: Jose Antonio is a 35 year old right hand dominant male who presents today post- operatively status post Right 4th & 5th CMC CRPP performed by Dr. Castro on 06/27/25. He was last seen on 08/01/25 by BRANDI Heredia for a cast change. Patient was placed in a new short arm cast and advised avoid strenuous activates or playing darts. On 07/13/25 he was advised by Dr. Castro to avoid lifting greater than 2 lbs for 6-8 weeks, avoiding high impact activities, underwater activates, working on gentle ROM. A work note was provided to remain out for 4 more weeks. Today the plan involves K-wire removal and OT referral. States he has very little pain, at the end of his day he has a little soreness and throbbing. Allergies No Known Allergies (No Known Allergies*) Allergy (Verified 08/10/25 13:57) HPI HPI PO RT 4th MC/hamate CRPP v ORIF 06/27/25 AR: Details: Jose Antonio is a 35 year old right hand dominant man who presents S/P right 4th & 5th CMC joint CRPP, DOS: 06/27/25. He fell on 06/10/25. He says he is doing well, with little pain which can worsen somewhat by the end of the day. 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 He has returned to work already without use of his RUE. He says this has been going well. [facility] Medical History Appendicitis Social History Household Members: Family Housing: House Are you a primary client care consultant to a significant other at home: No Do you presently have visiting nurse or other home services: No Patient Tobacco Use Status: Current everyday Tobacco user Tobacco use type: Cigarette Cigarette Packs Per Day: 0.5 Cigarettes Per Day: 10.0 Second Hand Smoke Exposure: No service: No Current occupational status: unemployed Current occupation: rt handed Physical Exam Vital Signs: BMI result Body Mass Index 27.3 Const General: no acute distress and alert Orientation/consciousness: patient oriented x3 Neuro General: patient oriented x3 Extrem Other: The patient was alert oriented and in no acute distress The pin sites are healing well with no erythema drainage or evidence of infection. K-wires removed today in clinic, which he tolerated well. Some stiffness in the small finger MCP joint We worked on ROM exercises today in clinic Ring fingertip to her palm, but small finger to ~60 degrees at the MCP joint Sensation is intact Cap refill is brisk Radiographs: 3 views of the right hand were taken and viewed by me today in clinic. They show 4th & 5th CMC joint fractures with satisfactory reduction, fracture alignment, and position of both K-wires. There is also a hamate fracture with satisfactory fracture alignment. Psych Appearance: grossly normal Affect: normal affect Attitude: cooperative Assessment & Plan Assessment & Plan (1) Closed dislocation of fourth carpometacarpal joint of right hand: Code(s): S63.054A - Dislocation of other carpometacarpal joint of right hand, initial encounter Category: Medical (2) Subluxation of carpometacarpal (CMC) joint of right hand: Comment: 5th Code(s): S63.051A - Subluxation of other carpometacarpal joint of right hand, initial encounter Category: Medical (3) Fracture of hamate of right wrist: Code(s): S62.141A - Displaced fracture of body of hamate [unciform] bone, right wrist, initial encounter for closed fracture Category: Medical Plan Assessment & Plan: 1. Right 4th CMC joint fracture dislocation, S/P CRPP DOS: 06/27/25 DOI: 06/10/25 K-wire removed: 08/10/25 2. Right 5th CMC joint subluxation, S/P CRPP DOS: 06/27/25 DOI: 06/10/25 K-wire removed: 08/10/25 3. Right hamate fracture DOI: 06/10/25 The patient appears to be doing well post-operatively I educated him about the post-operative course I explained the signs and symptoms of infection, if the patient develops any new or worsening erythema, drainage, pain, or warmth they should contact the clinic or attend the ED. He was fitted for a velcro wrist splint, to be worn when out of the house with daily activities for the next 3 weeks I discussed activity modifications, he is to lift nothing heavier than a cellphone for the next 2-4 weeks. They should also avoid any heavy impact activities, falls, or sports activities for the next 4 weeks He will perform finger ROM exercises at home. 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 He was given a note for work to continue on light duty, with a 3lb weight limit with his RUE for 4 weeks He will follow up in 4 weeks for a ROM check & to decrease work restrictions. Scribed for Kiersten Castro MD by Brian Collier, medical receptionist assistant, on 08/10/25 at 2:05 PM, EST. Orders: Orders XR hand RT min 3V Today M79.641 - Pain in right hand Coding Level of Care Code Global (12756) Diagnoses Closed dislocation of fourth carpometacarpal joint of right hand S63.054A Subluxation of carpometacarpal (CMC) joint of right hand S63.051A Fracture of hamate of right wrist S62.141A
[2025-08-10 13:56] VITALS: BMI 27.3
== END 2025-08-10 14:30 | disposition home or self-care (01) ==
LOC: HO.HOS 13:31
PROVIDERS: Visit Provider Orthopaedic Surgery
DX: S63.054A Dislocation of other carpometacarpal joint of right hand, initial encounter (principal); S63.051A Subluxation of other carpometacarpal joint of right hand, initial encounter; S62.141A Displaced fracture of body of hamate [unciform] bone, right wrist, initial encounter for closed fracture
CPT/HCPCS: 99024

== ENCOUNTER → 2025-08-10 13:34 | Outpatient (BNV) | payer MEDICAID, SELFPAY | PROVIDERS: Visit Provider Radiology Diagnostic Radiology | DX: M79.641 Pain in right hand (principal); Z96.698 Presence of other orthopedic joint implants | CPT/HCPCS: 73130 ==

== ENCOUNTER 2025-09-13 08:42 | Outpatient (AMB) | payer MEDICAID, SELFPAY ==
--- NOTE | 2025-09-13 08:48 | A.OFFVIS_ITS ---
Vital Signs 09/13/25 08:58 Height 5 ft 10 in Weight 190 lb BMI 27.3 Intake Visit Reasons: PO RT 4th MC/hamate CRPP v ORIF 06/27/25 AR Intake Note: Jose Antonio is a 35 year old right hand dominant male who presents today post- operatively status post right hand, 4th & 5th CMC CRPP performed by Dr. Castro on 06/27/25. At his last visit he was fitted for a velcro wrist brace, no heavy lifting, and work on gentle ROM. 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 He was given a note for work to continue on light duty, with a 3lb weight limit with his RUE.Today patient reports that he does not fully have his hand strength back. Complaints of shocking sensation with hand shaking. He also complains of numbness in his whole hand, stating numbness presents when his hand is in a resting position. Allergies No Known Allergies (No Known Allergies*) Allergy (Verified 09/13/25 08:57) HPI HPI PO RT 4th MC/hamate CRPP v ORIF 06/27/25 AR: Details: Jose Antonio is a 35 year old right hand dominant man who presents S/P right 4th & 5th CMC joint CRPP, DOS: 06/27/25. He fell on 06/10/25. He complains of weakness in his hand, particularly when shaking hands with others. He also complains of numbness in his middle, ring, and small fingers. Symptoms intermittent, primarily at night, and causes an ache in his hand. This is a new symptom he has not mentioned before, but he says this has been present since his pins were removed. He denies any numbness in his left hand He also complains of pain in his left wrist, particularly with ROM or applying force. He says the only injury he can recall was having his young child jump on his wrist at home, while on the couch 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 and says he is primarily a solar project coordination specialist. He has returned to work on light dutHe says this has been going well. [facility] Medical History Appendicitis Social History Household Members: Family Housing: House Are you a primary rn homecare to a significant other at home: No Do you presently have visiting nurse or other home services: No Patient Tobacco Use Status: Current everyday Tobacco user Tobacco use type: Cigarette Cigarette Packs Per Day: 0.5 Cigarettes Per Day: 10.0 Second Hand Smoke Exposure: No service: No Current occupational status: unemployed Current occupation: rt handed Review of Systems Const All systems reviewed & are unremarkable except as noted in HPI and below Physical Exam Vital Signs: BMI result Body Mass Index 27.3 Const General: no acute distress and alert Orientation/consciousness: patient oriented x3 Neuro General: patient oriented x3 Extrem Other: Evaluation of Right Upper Extremity: The patient is alert, oriented, and in no acute distress Neuro: Median, Ulnar, Radial nerves motor and sensory intact and sensation is normal to the tips of all digits Vascular: Cap refill brisk ROM: Some stiffness in the small finger MCP joint Ring fingertip to his palm, but small finger to ~60 degrees at the MCP joint 4th & 5th CMC joints non-tender and feel stable Small bump dorsally at these joints He has only ~50 degrees of wrist extension bilaterally. Left snuffbox & scaphoid tubercle tenderness Radiographs: 3 views of the left wrist + scaphoid were taken and viewed by me today in clinic. They show a faint line at the scaphoid that is suggestive of a proximal waist occult scaphoid fracture, non-displaced. Psych Appearance: grossly normal Affect: normal affect Attitude: cooperative Assessment & Plan Assessment & Plan (1) Fracture of hamate of right wrist: Code(s): S62.141A - Displaced fracture of body of hamate [unciform] bone, right wrist, initial encounter for closed fracture Category: Medical (2) Closed dislocation of fourth carpometacarpal joint of right hand: Code(s): S63.054A - Dislocation of other carpometacarpal joint of right hand, initial encounter Category: Medical (3) Subluxation of carpometacarpal (CMC) joint of right hand: Comment: 5th Code(s): S63.051A - Subluxation of other carpometacarpal joint of right hand, initial encounter Category: Medical (4) Numbness and tingling in right hand: Code(s): R20.0 - Anesthesia of skin; R20.2 - Paresthesia of skin Category: Medical (5) Closed fracture of scaphoid of left wrist: Code(s): S62.002A - Unspecified fracture of navicular [scaphoid] bone of left wrist, initial encounter for closed fracture Category: Medical Plan Assessment & Plan: 1. Right 4th CMC joint fracture dislocation, S/P CRPP DOS: 06/27/25 DOI: 06/10/25 K-wire removed: 08/10/25 2. Right 5th CMC joint subluxation, S/P CRPP DOS: 06/27/25 DOI: 06/10/25 K-wire removed: 08/10/25 3. Right hamate fracture DOI: 06/10/25 The patient appears to be doing well post-operatively He will discontinue his splint at this time I discussed activity modifications, he is to use his hand for normal lightweight activities and slowly increase his weight limit as tolerated. 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 He was given a note for work to continue on light duty, with a 3lb weight limit with his BUE and time off to attend OT hand therapy, until his next appointment. 4. Right hand numbness In the middle, ring, and small fingers Symptoms intermittent, primarily at night This is a new problem I ordered a NCS to assess for peripheral nerve compression They will follow up when completed for review 5. Possible left scaphoid waist fracture This is a new problem I educated him about this condition and reviewed his radiographs I ordered a Stat MRI of his left wrist to assess for a possible fracture He was fitted for a velcro wrist splint, to be worn like a cast for the next 4 weeks I explained the effects of smoking on wound/bone healing, and recommend they stop smoking prior to surgery & while healing. This includes vaping, Marijuana, and other Nicotine products including patches used to help quit. They expressed understanding. He will follow up for an MRI review when completed. This should be a 30 minute appointment Please note that greater than 40 minutes was spent with this patient going over the history, evaluating the patient and radiographs, formulating possible treatment options, discussing them with the patient, and documenting the visit. Scribed for Kiersten Castro MD by Brian Collier, medical charge entry specialist, on 09/13/25 at 9:05 AM, EST. Orders: Orders NE electromyogram (EMG) Today R20.0 - Anesthesia of skin, R20.2 - Paresthesia of skin NE nerve conduction velocity Today R20.0 - Anesthesia of skin, R20.2 - Paresthesia of skin XR wrist LT w scaphoid Today M25.532 - Pain in left wrist MR wrist LT wo con Today M25.532 - Pain in left wrist OT Evaluation and Treatment Today S62.141A - Displaced fracture of body of hamate [unciform] bone, right wrist, initial encounter for closed fracture, S63.051A - Subluxation of other carpometacarpal joint of right hand, initial encounter, S63.054A - Dislocation of other carpometacarpal joint of right hand, initial encounter Coding Level of Care Code Est Pt Level 4 (53761) Diagnoses Fracture of hamate of right wrist S62.141A Closed dislocation of fourth carpometacarpal joint of right hand S63.054A Subluxation of carpometacarpal (CMC) joint of right hand S63.051A Numbness and tingling in right hand R20.0; R20.2 Closed fracture of scaphoid of left wrist S62.002A
--- OUTSIDE RECORDS SUMMARY | 2025-09-13 08:53 | XMS_ITS | Clinical Summary ---
Author Organization [facility] Address [address] [place] [address] Care Team Providers Care Behavioral Health Case Manager Name Role Phone Shanda Lima PA-C Primary Care Provider [phone] Source Comments PLEASE NOTE, if this patient [...] Molluscum contagiosum 03/20/2024 Overview (03/20/2024): 03/18/2024 - [facility] - Molluscum contagiosum of the [...] inguinal hernia repair with mesh. Done at [facility] by Dr. Black History [...] exists Depression Annual Screen 11/03/2024 09/20/2024, 04/04 [id number] ( season) 2025 Annual Wellness (Adult): Indicated [...] HEPATITIS C ANTIBODY NON-REACT YAHAIRA NON-REACT YAHAIRA [facility] Comment: HCV antibody was non-reactive. There is no laboratory evidence of HCV infection. In most cases, no further action is required. However, if recent HCV exposure is suspected, a test for HCV RNA (test code 79882) is suggested. For additional information please refer to http://education.[employer]faq/RML84f2 (This link is being provided for informational/ educational purposes only.) Blood Blood / Unknown 09/18/2023 2 :25 PM EST 09/18/2023 2:26 PM EST Narrative [facility] - 09/19/2023 4:44 AM EST FASTING:NO Shanda Lima PA-C LAB - BLOOD DRAW Final Resu lt [facility] [address] [place] [phone], [facility] [address] [place] [phone] * HIV 1/2 AG & AB W/RFLX (4TH GEN) (09/18/2023 2:25 PM EST) HIV AG/AB, 4TH GEN NON-REAC TIVE NON-REAC TIVE [facility] Comment: HIV-1 antigen and HIV-1/HIV-2 antibodies were [...] purpose. For additional information please refer to http://education.[employer]/faq/TRB724 (This link is being provided for informational/ educational purposes only.) The performance of this assay has not been clinically validated in patients less than 2 years old. Blood Blood / Unknown 09/18/2023 2 :25 PM EST 09/18/2023 2:26 PM EST Narrative [facility] - 09/19/2023 4:44 AM EST FASTING:NO Shanda Lima PA-C LAB - BLOOD DRAW Final Resu lt [facility] [address] [address], [facility] [address] [phone] from Last 3 Months or Most Recently Relevant to Health Maintenance Insurance [address] [employer], [place] Care Teams Behavioral Health Case Manager Relationship Specialty Start Date End Date Shanda Lima PA-C [address] [place] [address] PCP - General Primary Care 09/02/23
--- OUTSIDE RECORDS SUMMARY | 2025-09-13 08:53 | XMS_ITS | Clinical Summary ---
Author Organization [employer] Address [address] [place] [address] Care Team Providers Care Job Trainer Name Role Phone Unavailable Primary Care Provider Unavailabl e Encounters Date Type Department Care Team Description 06/22/2025 Telephone [facility] [address] [place] [phone] Blake Abreu MD Appointment Request 06/22/2025 Telephone [facility] [address] [place] [address] Blake Abreu MD Appointment Request; Referral from [...] 1-dose 75+ series) 2067 HIV Screening Completed 09/18/2023 HIB Vaccines Aged Out [...] to 49) Years Aged Out No longer eligi ble based on patient's age to complete this topic RSV under 20 months Aged Out No longe r eligible based on patient's age to complete this topic Rotavirus Vaccines Aged Out No longer eligible based on patient's age to complete this topic
--- OUTSIDE RECORDS SUMMARY | 2025-09-13 08:53 | XMS_ITS | Clinical Summary ---
Author Organization [facility] Address [address] [place] [address] Phone Care Team Providers Care Android Ui Developer Name Role Phone Shanda Lima Primary Care Provider [phone] Allergies No known active allergies Medications No [...] Years) (1 of 2 - PCV) 2011 HPV Vaccines (1 - 3-dose SCDM series) 2019 HIV Screening 12/02/2023 Social Influencers of Health Screening 12/02/2023 Depression Screening 11/03/2024 COVID-19 Vaccine (2024- season) 2025 Influenza Vaccine (#1) 2025 Cholesterol Screening (Lipid Panel) 11/19/2029 11/19/2024, 11/19/2024, 02/09/2024 DTaP,Tdap,and Td Vaccines (8 - Td or Tdap) 09/13/2032 09/13/2022, 11/03/2013, 06/26/1999, Additional history exists RSV Immunization Adult Patients (1 - 1-dose 75+ series) 2067 IPV Vaccines Completed 03/31/1996, 01/01, 03/17/1995, Additional [...] to complete this topic Insurance MEDICA[place] - [place] Care Teams Android Ui Developer Relationship Specialty Start Date End Date Shanda Lima PA [address] [place] [id number] PCP - General 02/26/24
[2025-09-13 08:58] VITALS: BMI 27.3
== END 2025-09-13 10:36 | disposition home or self-care (01) ==
LOC: HO.HOS 08:42
PROVIDERS: Visit Provider Orthopaedic Surgery
DX: S62.141A Displaced fracture of body of hamate [unciform] bone, right wrist, initial encounter for closed fracture (principal); S63.054A Dislocation of other carpometacarpal joint of right hand, initial encounter; S63.051A Subluxation of other carpometacarpal joint of right hand, initial encounter; R20.0 Anesthesia of skin; R20.2 Paresthesia of skin; S62.002A Unspecified fracture of navicular [scaphoid] bone of left wrist, initial encounter for closed fracture
CPT/HCPCS: 99024

== ENCOUNTER 2025-09-13 08:42 | Outpatient (REF) | payer MEDICAID, SELFPAY ==
--- NOTE | ~2025-09-13 | XR_ITS ---
EXAMINATION: XR WRIST, LEFT CLINICAL INFORMATION: M25.532 - Pain in left wrist COMPARISON: None available. TECHNIQUE: PA, lateral, oblique, and scaphoid views of the left wrist. FINDINGS: There is no abnormal step-off of the carpal rows. There is no joint diastases. On the scaphoid spot view, there is cortical step-off through the proximal scaphoid waist region near the radial styloid tip. There is also faint incomplete lucency extending to the lateral cortex. Lucency is also visible on the oblique view in the same region. There is no abnormal sclerosis. XR/XR wrist LT w scaphoid IMPRESSION: Suspected fracture of the left scaphoid, age indeterminate. Electronically signed by: Crispin Browning MD 09/13/2025 10:00 AM [facility] AL[facility]
--- OUTSIDE RECORDS SUMMARY | 2025-09-13 10:03 | XMS_ITS | Data Portability ---
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 He had been on qsfc-vcx-jcacgvh decongestant preparations for many years. Fortunately he [...] 32 mcg/actuati on nasal spray 2024 025 [facility] #[id number], [address] [place], [address], 09:49:20 Patient TargetsNo targets recorded. Patient InstructionsNo instructions recorded. Reason for Referral None Reported. Results Created Date Observation Date Name Description Value Unit Range Abnormal Flag Note LastModifiedBy Organization Detail LastModifiedTime 11/15/1911/11/2024 CT, maxil lofac ial, w/o contr ast No observ ation record ed. [id number], [address], 11/18/2024 12:59:59 Result Notes None recorded. Problems Name Problem SNOMED Code Status Onset Date Resolution Date Notes Provider Name and Address Organization Details Recorded Time Deviated nasal septum 238136856 Active 2024 SAYDA SANCHEZ MD [address] [place] [address], [place], [phone], [facility] - [facility] 5 09:48:29 Hypertrophy of nasal turbinates 31398656 Active 2024 SAYDA SANCHEZ MD [address] [place] [address], [place], [phone], [facility] [place] 5 09:48:34 Chronic sinusitis 26113335 Active 2024 SAYDA SANCHEZ MD [address] [place] [address], [place], [phone], [facility] [place] 09:48:39 Problem Notes None recorded. Procedures Surgical History Date Name Laterality Status Provider Name and Address Organization Details Recorded Time JMSNasal/Sinus Endoscopy completed SAYDA LYNN MD [address] [address], [place], [address], [place] - [facility] 11/18/2024 09:50:34 Imaging Results None recorded. [...] DateTime 11/18/2024 120/90 mm[Hg] SAYDA LYNN MD [address] [place] [address], [phone], [facility] 11/18/2024 09:51:04 Date Recorded Body height Body mass index (BMI) Body weight Provider Name and Address Organization Details Last Updated DateTime 11/18/2024 175.26 cm 28.1 kg/m2 83431.55 g Abrahan Casillas [facility] 11/18/2024 09:11:30 Social History Question Answer Notes LastModified by Organizat ion Details LastModified Time Tobacco Smoking Status Former Smoker SAYDA LYNN MD [address] [place] [address], [phone], [facility] 11/18/2024 09:42:30 When Did You Quit Smoking? 1-5yearssinc elastcigaret te Information not available 11/18/2024 What Is Your Current Pack Years? 10-19packyea rs Information not available 11/18/2024 Sex: Unknown Functional Status None recorded. Mental Status None recorded. Family History Nothing Reported. Medical History Condition Response Allergies/Hayfever Y Heart Problems N Anxiety N Tonsil Infections N Emphysema N Migraines N Thyroid Problems N COPD N Depression N Developmental Delay N Glaucoma N Nasal or Sinus Problems N Anemia N Immune System Disorder N Anesthesia Complications N Heart Attack ([place]) N Other Skin Condition N Diabetes N Rhinitis N Bleeding Disorder N Food Allergy N Hearing Loss N Arthritis N Hyperlipidemia N Cancer N Stroke N Dementia N Nasal polyps N Asthma N Sleep Disorder N High Cholesterol N GERD/Reflux N Liver Disease N Headaches N Fibromyalgia N Hypertension N Speech Delay N Kidney Disease N Past Encounters Encounter ID Performer Location Encounter Start Date Encounter Closed Date Diagnosis/Indication Diagnosis SNOMED-CT Code Diagnosis ICD10 Code Diagnosis IMO Codes Diagnosis Note [id number] SAYDA NEELY MD [facility] [address] [address] 11/18/2024 09:04:30 11/18/2024 09:52:00 Deviated nasal septum 951451443 J34.2 Hypertroph y of nasal turbinates 25078178 J34.3 Chronic sinusitis 189257 00 J32.9 Health Concerns Section Related Observation LastModified by Organization Detai ls LastModified Time None Recorded Concern Status LastModified by Organization Details LastModified Time None Recorded Advance Directives Directive None Recorded Payers Insurance Date Sequence Insurance Name Policy Number Policy Schneider Covered Member ID Schneider Member ID Guarantor Name 11/24/2024 1 [place] [employer] (MEDICAID) Jose Antonio L Pisarenko [id number] Jose Antonio Pisjennynko Notes Date Note Type Note Provider Name and Address Organization Details Recorded Time 11/18/2024 text/html ROS as noted in the HPI 34-year-old male seen for an opinion regarding chronic nasal congestion. He was using kihx-mom-wuilyqu decongestant preparations for many years. He was able to stop those in August but feels the congestion has persisted. He recently had a CT scan which showed moderate thickening of the left maxillary sinus without any air-fluid levels. SAYDA LYNN MD [address] [place] [address], [phone], [facility] - [facility] 11/18/2024 09:51:33
== END 2025-09-13 08:43 | disposition home or self-care (01) ==
LOC: HO.HOSX 08:42
PROVIDERS: Visit Provider Orthopaedic Surgery
DX: S62.141A Displaced fracture of body of hamate [unciform] bone, right wrist, initial encounter for closed fracture (principal); S63.054A Dislocation of other carpometacarpal joint of right hand, initial encounter; S63.051A Subluxation of other carpometacarpal joint of right hand, initial encounter; S62.002A Unspecified fracture of navicular [scaphoid] bone of left wrist, initial encounter for closed fracture; R20.0 Anesthesia of skin; R20.2 Paresthesia of skin; X58.XXXA Exposure to other specified factors, initial encounter
CPT/HCPCS: 73110; 99212

== ENCOUNTER → 2025-09-13 09:17 | Outpatient (BNV) | payer MEDICAID, SELFPAY | PROVIDERS: Visit Provider Radiology Diagnostic Radiology | DX: M25.532 Pain in left wrist (principal) | CPT/HCPCS: 73110 ==

== ENCOUNTER 2025-09-20 15:19 | Outpatient (REF) | payer MEDICAID, SELFPAY ==
--- NOTE | ~2025-09-20 | MR_ITS ---
EXAM: MR Wrist Lt Wo Con TECHNIQUE: Multiplanar - multisequence imaging through an upper extremity joint was performed without contrast. INDICATION: Scaphoid fracture PRIOR: X-ray September 13, 2025 FINDINGS: Triangular fibrocartilage complex: Triangular fibrocartilage complex appears intact. Intrinsic wrist ligaments: The dorsal band of scapholunate ligament is indistinct with increased signal. There is also increased signal in the volar band. Membranous component appears grossly intact. Lunotriquetral ligament appears intact. Extensor compartments: Intact and unremarkable. Flexor tendons: Intact and unremarkable. Carpal tunnel and Guyon's canal: Carpal tunnel is unremarkable. Guyon's canal structures are deviated in an ulnar direction by a mass. There is a mass in the deep subcutaneous soft tissues volar to the hook of hamate and superficial to the flexor retinaculum of the carpal tunnel. The mass measures 1.8 x 1.5 x 1.0 cm (cc by transverse by AP). It demonstrates a 2 mm thick rind of low signal. Centrally, it displays fat signal imaging sequences. The mass does not appear ossified on recent x-ray. Bones/Marrow: There is decreased T1 signal and increased signal on fluid sensitive sequences throughout scaphoid, partially sparing the scaphoid tuberosity. There is fluid signal traversing the proximal waist region of the scaphoid seen to the dorsal and radial surface. Fluid signal does not completely traverse the volar side of scaphoid. Marrow edema appears similar both proximal and distal to the fracture. Soft tissues: There is thickening of synovium with heterogeneous signal in the region of scaphoid. There is mildly increased mildly complex fluid in the radiocarpal compartment. There is no muscle edema or fatty streaking. MR/MR wrist LT wo con IMPRESSION: There is a fracture through the waist of scaphoid with edema that is symmetrical on the distal and proximal side of the fracture that is not suspicious for AVN. There may be bridging bone across the fracture. Consider CT scaphoid without contrast to evaluate for healing. There are likely changes related to synovitis in the soft tissues adjacent scaphoid. There is a mass with a 2 mm thick rind volar to the hook of hamate. There is central fat signal on all imaging sequences. This could represent an area of fat necrosis from trauma related to impingement/trauma of soft tissues by the hook of hamate. Encapsulated lipoma is in the differential. Ulnar neurovascular bundle is deviated in an ulnar direction by the mass in the distal end of Guyon's canal. Correlate for signs and symptoms of ulnar neuropathy. Suspected tear or partial tear of the dorsal band of scapholunate ligament, and partial tear of the volar band. Electronically signed by: Crispin Browning MD 09/20/2025 04:26 PM EST
== END 2025-09-20 15:20 | disposition home or self-care (01) ==
LOC: HO.MRI 15:19
PROVIDERS: PCP Student in an Organized Health Care Education/Training Program; Visit Provider Orthopaedic Surgery
DX: M25.532 Pain in left wrist (principal)
CPT/HCPCS: 73221

== ENCOUNTER → 2025-09-20 15:19 | Outpatient (BNV) | payer MEDICAID, SELFPAY | PROVIDERS: PCP Student in an Organized Health Care Education/Training Program; Visit Provider Radiology Diagnostic Radiology | DX: M25.532 Pain in left wrist (principal) | CPT/HCPCS: 73221 ==

== ENCOUNTER 2025-09-24 21:44 | Inpatient (IN) | payer MEDICAID, SELFPAY ==
--- NOTE | ~2025-09-24 | XR_ITS ---
CLINICAL HISTORY: hypoxia 1 view chest x-ray Comparison: None provided Findings: Perihilar centrilobular ground-glass opacities. Heart size is normal. No acute fracture. IMPRESSION: 1. Perihilar centrilobular ground-glass opacities, possibly representing bronchitis or early pneumonia. Short-term follow-up is suggested to verify interval resolution. 2. No acute cardiopulmonary findings. This document has been electronically signed by: Johnnie Bonilla MD on 09/25/2025 19:55:32
--- NOTE | ~2025-09-24 | CT_ITS ---
CLINICAL HISTORY: RLQ pain, hx appendicitis CT abdomen and pelvis with contrast Comparison: CT/SR - CT ABDOMEN PELVIS W IV CON - 02/19/25 12:02 EDT Findings: The lung bases are clear. Unremarkable gallbladder and solid organs. No urolithiasis. No bowel obstruction, pneumoperitoneum, or pneumatosis. There is stable dilation of the fluid-filled appendix measuring 1 cm, previously 0.9 cm. There is no appendicolith, periappendiceal fat stranding, or periappendiceal abscess. Prominent but nonenlarged lymph nodes are seen near the appendix. No definite evidence of acute appendicitis. Stable post hernia repair in the left lower abdomen. Pelvic contents unremarkable. No abdominopelvic free fluid. The bones are intact. IMPRESSION: Compared to 02/19/2025, stable dilation of the fluid-filled appendix without definite evidence of acute appendicitis This document has been electronically signed by: Jack Mcclellan MD on 09/25/2025 03:14:37
[2025-09-24 21:50] VITALS: BP 130/83; PULSE 89; RESP 20; TEMP 36.7; O2SAT 97; BMI 26.7
[2025-09-24 22:09] LABS: MANUAL DIFF FLAG NO
[2025-09-24 22:13] LABS: Hematocrit 40.6 % (42.0-52.0); Hemoglobin 14.0 g/dl (14.0-18.0); Imm Gran Abs Auto 0.01 X10*3/uL (0.00-0.03); Imm Gran Pct Auto 0.1 % (0.0-0.4); Lymphocytes Absolute Auto 2.9 X10*3/uL (1.2-4.9); Mean Corpuscular HGB Conc 34.5 g/dl (31.0-36.0); Mean Corpuscular Hemoglobin 31.5 pg (27.0-33.0); Mean Corpuscular Volume 91.2 fL (80.0-98.0); NRBC Abs Auto 0.000 X10*3/uL (0.0-0.012); NRBC Pct Auto 0.0 /100WBC (0.0-0.2); Platelet Count 253 X10*3/uL (160-400); Red Blood Count 4.45 X10*6/uL (4.60-5.80); White Blood Count 8.5 X10*3/uL (4.8-10.8)
[2025-09-24 22:32] LABS: Alanine Aminotransferase 34 U/L (0-40); Albumin Level 4.8 g/dL (3.5-5.0); Alkaline Phosphatase 59 U/L (39-117); Anion Gap 14 (12-20); Aspartate Amino Transferase 29 U/L (5-37); Blood Urea Nitrogen 18 mg/dL (9-16); Calcium 9.5 mg/dL (8.4-10.2); Carbon Dioxide 26 mmol/L (22-29); Chloride 105 mmol/L (96-108); Creatinine Clr Calc Pharmacy 120.5; Estimated Glomerular Filt Rate > 60; Lipase 32 U/L (8-78); Potassium 3.6 mmol/L (3.3-5.1); Sodium 141 mmol/L (135-145); Total Protein 7.6 g/dL (6.5-8.0)
--- OUTSIDE RECORDS SUMMARY | 2025-09-24 22:57 | XMS_ITS | Clinical Summary ---
Author Organization [facility] Address [address] [place] [address] Phone Care Team Providers Care Landscape Account Manager Name Role Phone Shanda Lima Primary Care Provider [phone] Allergies No known active allergies Medications No [...] topic Insurance [place] - [place] Care Teams Landscape Account Manager Relationship Specialty Start Date End Date Shanda Lima PA [address] [place] [id number] PCP - General 02/26/24
--- OUTSIDE RECORDS SUMMARY | 2025-09-24 22:57 | XMS_ITS | Data Portability ---
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 He had been on thub-cyt-dijporr decongestant preparations for many years. Fortunately he [...] 32 mcg/actuati on nasal spray 2024 025 [facility] #[id number], [address] [facility] [place], [address], 09:49:20 Patient TargetsNo targets recorded. Patient InstructionsNo instructions recorded. Reason for Referral None Reported. Results Created Date Observation Date Name Description Value Unit Range Abnormal Flag Note LastModifiedBy Organization Detail LastModifiedTime 11/15/1911/11/2024 CT, maxil lofac ial, w/o contr ast No observ ation record ed. [email or web address], [address], 11/18/2024 12:59:59 Result Notes None recorded. Problems Name Problem SNOMED Code Status Onset Date Resolution Date Notes Provider Name and Address Organization Details Recorded Time Deviated nasal septum 321359142 Active 2024 SAYDA SANCHEZ MD [address] [place] [address], [place], [phone], [facility] - [facility] 5 09:48:29 Hypertrophy of nasal turbinates 68012229 Active 2024 SAYDA SANCHEZ MD [address] [place] [address], [place], [address], [facility] - [facility] 5 09:48:34 Chronic sinusitis 90303824 Active 2024 SAYDA SANCHEZ MD [address] [place] [address], [place], [phone], [facility] - [facility] 09:48:39 Problem Notes None recorded. Procedures Surgical History Date Name Laterality Status Provider Name and Address Organization Details Recorded Time JMSNasal/Sinus Endoscopy completed SAYDA LYNN MD [address] [address], [place], [address], [place] - [facility] 11/18/2024 09:50:34 Imaging Results None recorded. [...] DateTime 11/18/2024 120/90 mm[Hg] SAYDA LYNN MD [address] [place] [address], [phone], [facility] 11/18/2024 09:51:04 Date Recorded Body height Body mass index (BMI) Body weight Provider Name and Address Organization Details Last Updated DateTime 11/18/2024 175.26 cm 28.1 kg/m2 07651.55 g Abrahan Casillas [facility] 11/18/2024 09:11:30 Social History Question Answer Notes LastModified by Organizat ion Details LastModified Time Tobacco Smoking Status Former Smoker SAYDA LYNN MD [address] [place] [address], [phone], [facility] 11/18/2024 09:42:30 When Did You Quit [...] Disorder N Anesthesia Complications N Heart Attack (AR) N Other Skin Condition N Diabetes N [...] ICD10 Code Diagnosis IMO Codes Diagnosis Note [id number] SAYDA NEELY MD [facility] [address] [address] 11/18/2024 09:04:30 11/18/2024 09:52:00 Deviated nasal septum 283008443 J34.2 Hypertroph y of nasal turbinates 61522994 J34.3 Chronic sinusitis 240538 00 J32.9 Health Concerns Section Related Observation LastModified by Organization Detai ls LastModified Time None Recorded Concern Status LastModified by Organization Details LastModified Time None Recorded Advance Directives Directive None Recorded Payers Insurance Date Sequence Insurance Name Policy Number Policy Schneider Covered Member ID Schneider Member ID Guarantor Name 11/24/2024 1 [place] [facility] [employer] (MEDICAID) Jose Antonio L Pisarenko [id number] Jose Antonio Pisjennynko Notes Date Note Type Note Provider Name and Address Organization Details Recorded Time 11/18/2024 text/html ROS as noted in the HPI 34-year-old male seen for an opinion regarding chronic nasal congestion. He was using wzif-izq-sveouba decongestant preparations for many years. He was able to stop those in August but feels the congestion has persisted. He recently had a CT scan which showed moderate thickening of the left maxillary sinus without any air-fluid levels. SAYDA LYNN MD [address] [place] [address], [phone], [facility] - [facility] 11/18/2024 09:51:33
--- OUTSIDE RECORDS SUMMARY | 2025-09-24 22:57 | XMS_ITS | Clinical Summary ---
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
[2025-09-25] VITALS (20 sets, daily range): BP systolic 102–136; BP diastolic 53–90; PULSE 73–110; RESP 14–26; TEMP 36.1–36.8; O2SAT 91–98
--- NOTE | 2025-09-25 | ECG_ITS ---
Test Reason : hypoxia Blood Pressure : */* mmHG Vent. Rate : 108 BPM Atrial Rate : 108 BPM P-R Int : 112 ms QRS Dur : 82 ms QT Int : 324 ms P-R-T Axes : 71 80 59 degrees QTcB Int : 434 ms Sinus tachycardia Right atrial enlargement Borderline ECG No previous ECGs available Referred By: Kevin Seals Electronically Signed By: Loco Hernandez
--- NOTE | 2025-09-25 01:08 | ED_ITS ---
HPI - Abdominal Pain General Chief Complaint: Abdominal Pain Stated Complaint: appendicitis? Time Seen by Provider: 09/25/25 00:13 Source: patient Mode of arrival: ambulatory Limitations: no limitations History of Present Illness ED Provider: Dr. Eugenia Gonzales HPI narrative: 35-year-old male with a history of appendicitis not treated with surgery but instead conservative treatment with antibiotics approximately 7 months ago presenting with right lower quadrant abdominal pain, nausea and vomiting ongoing since yesterday. Admits that he has been feeling well prior to developing severe, sudden onset right lower quadrant abdominal pain after eating dinner. Describes a sharp, stabbing pain that is nonradiating. Pain is worse with movement and palpation of his abdomen. He has not taken anything for pain yet. Describes a single episode of nausea and vomiting that woke him from sleep this morning. Denies associated fever. Had a normal bowel movement yesterday without hematochezia or melena. Denies other symptoms including cough, chest pain, difficulty breathing, urinary complaints, known sick contacts or travel. He was treated conservatively with antibiotics in February of this year for what was thought to be early appendicitis. Reports total resolution of those symptoms until today. Related Data Allergies Allergy/AdvReac Type Severity Reaction Status Date / Time No Known Allergies (No Known Allergy Verified 09/24/25 21:52 Allergies*) Review of Systems Review of Systems As per HPI, full review of systems performed and negative but for the above mentioned pertinent positives and negatives. FOR[facility]LY [facility], [facility] Past Medical History Medical History Appendicitis Social History Social History Household Members: Family Housing: House Are you a primary child care teacher to a significant other at home: No Do you presently have visiting nurse or other home services: No Patient Tobacco Use Status: Current everyday Tobacco user Tobacco use type: Cigarette Cigarette Packs Per Day: 0.5 Cigarettes Per Day: 10.0 Second Hand Smoke Exposure: No Advance Directives: No Advance Directives Information Provided: No service: No Current occupational status: unemployed Current occupation: rt handed Physical Exam ED Exam Exam: GENERAL: Well-Appearing, conversant, no acute distress. SKIN: Normal skin color for ethnicity, warm, dry, no rashes noted. HEENT: Normocephalic, atraumatic, no stridor, posterior oropharynx nonerythematous, dentition intact, EOMI. NECK: Soft, supple, full ROM, midline structures nontender, no step-offs, no deformities, no lymphadenopathy. CHEST: Heart regular rate and rhythm, no murmurs, symmetric chest rise and fall. PULMONARY: Clear to auscultation bilaterally, no labored breathing, no wheezes/rhales/rhonchi. ABDOMINAL: Soft, nondistended, right lower quadrant tenderness to palpation with voluntary guarding, no rebound tenderness, positive McBurney's point, quiet bowel sounds in all quadrants. : Deferred. MUSCULOSKELETAL: Normal tone, full range of motion, no deformities, no peripheral edema. NEURO: Alert and oriented x3, CN II through XII intact, equal strength and sensation bilateral upper and lower extremities, no focal neurologic deficits. PSYCHIATRIC: Normal affect, fluid speech, good eye contact and appropriate demeanor. Vital Signs: Vital Signs - 24 hr 09/24/25 21:50 09/25/25 02:10 Temperature 98.1 F 97.9 F Pulse Rate 89 73 Respiratory Rate 20 18 Blood Pressure 130/83 114/76 Pulse Oximetry 97 95 Oxygen Delivery Method Room Air Room Air BMI result Body Mass Index 26.7 Medical Decision Making Medical Decision Making MDM Narrative: This patient presents today with a chief complaint of abdominal pain. Differential diagnosis for this patient is broad. It includes appendicitis, diverticulitis, gastroenteritis, cholecystitis, bowel obstruction, peptic ulcer disease, pyelonephritis, vascular pathology, among many others. A broad-based workup based on history and physical examination was obtained. Clinical picture is consistent with acute appendicitis though he does not have a fever nor does he have an elevated white blood cell count. His abdominal exam is concerning. I discussed this with general surgeon on-call, Dr. Jorgensen, who will admit for likely appendectomy. Patient understands and agrees with plan for admission. Admitted in guarded condition. Given a dose of Zosyn. Differential Diagnosis Differential Diagnoses: The differential diagnosis associated with the presentation includes (As above) Admission/Observation Consideration of admission/observation: Escalation of care including admission/observation considered Consult Healthcare Provider Management of the patient was discussed with: Cottage Cheese Maker (General surgery) Lab Data MDM Lab Attestation statement: I reviewed the patient's lab results. 09/24/25 22:05 09/24/25 22:05 Labs: Lab Results 09/24/25 Range/Units 22:05 WBC 8.5 (4.8-10.8) X10*3/uL RBC 4.45 L (4.60-5.80) X10*6/uL Hgb 14.0 (14.0-18.0) g/dl Hct 40.6 L (42.0-52.0) % MCV 91.2 (80.0-98.0) fL MCH 31.5 (27.0-33.0) pg MCHC 34.5 (31.0-36.0) g/dl RDW 11.4 (11.0-16.0) % Plt Count 253 D (160-400) X10*3/uL MPV 9.2 L (9.4-12.4) fL Immature Gran % (Auto) 0.1 (0.0-0.4) % Neut % (Auto) 52.9 (45-73) % Lymph % (Auto) 34.0 (20-40) % [place] % (Auto) 10.4 (2-11) % Eos % (Auto) 2.1 (0-4) % Baso % (Auto) 0.5 (0-2) % Lymph # (Auto) 2.9 (1.2-4.9) X10*3/uL [place] # (Auto) 0.9 (0.1-1.2) X10*3/uL Eos # (Auto) 0.2 (0.0-0.4) X10*3/uL Baso # (Auto) 0.0 (0.0-0.2) X10*3/uL Abs Immat Gran (auto) 0.01 (0.00-0.03) X10*3/uL Absolute Neuts (auto) 4.5 (2.0-8.3) x10*3/uL Absolute Nucleated RBC 0.000 (0.0-0.012) X10*3/uL Nucleated RBC % (auto) 0.0 (0.0-0.2) /100WBC Sodium 141 (135-145) mmol/L Potassium 3.6 (3.3-5.1) mmol/L Chloride 105 (96-108) mmol/L Carbon Dioxide 26 (22-29) mmol/L Anion Gap 14 (12-20) BUN 18 H (9-16) mg/dL Creatinine 0.90 (0.5-1.4) mg/dL Estim Creat Clear Calc 120.5 Estimated GFR > 60 Random Glucose 102 (60-115) mg/dL Calcium 9.5 (8.4-10.2) mg/dL Total Bilirubin 0.5 (0.0-1.0) mg/dL AST 29 (5-37) U/L ALT 34 (0-40) U/L Alkaline Phosphatase 59 (39-117) U/L Total Protein 7.6 (6.5-8.0) g/dL Albumin 4.8 (3.5-5.0) g/dL Lipase 32 (8-78) U/L Independent Interpretation I performed an independent interpretation of an: CT Scan Radiology Impression Discussion of test interpretation with radiology: I have reviewed the radiologist's reading. External Record Review External record reviewed: Inpatient record Prescription Management I considered prescription management with: Antibiotic Medications Administered Discontinued Medications Generic Name Dose Route Start Last Admin Trade Name Freq PRN Reason Stop Dose Admin Iohexol 100 ml 09/25/25 02:30 09/25/25 02:30 Iohexol 350 Mg/Ml 100 Ml Infus..Btl IV 09/25/25 02:31 85 ml ONCE ONE Administration Discharge Plan Discharge Clinical Impression: Acute appendicitis, Abdominal pain, acute, right lower quadrant, Nausea and vomiting Patient Disposition: Admitted As Inpatient Print Language: Arabic
--- NOTE | 2025-09-25 02:12 | PC.NURSE ---
20 g IV in left forearm
[2025-09-25] MEDS: iohexoL 350 MG/ML 100 ML INFUS..BTL IV (02:30)
--- NOTE | 2025-09-25 06:05 | HO.NURTONUR ---
Pt is a 35 y.o. male coming in with RLQ pain and associated n/v. Pt developed the pain suddenly while eating. PMH appendicitis 7 months ago but refused surgery at that time. He was treated with IV abx at that time. Abd CT shows Compared to 02/19/2025, stable dilation of the fluid-filled appendix without definite evidence of acute appendicitis. Labs grossly unremarkable. VSS, a&ox4. 20 g IV in the left forearm. Pt ambulates independently.
--- NOTE | 2025-09-25 09:11 | PHA.MEDREC ---
Addendum entered by Jaret Blanchard PharmD 09/25/25 09:23: reviewed Original Note: Pharmacy Consult ? Medication Reconciliation Pharmacy has completed the medication reconciliation. Patient states they do not take any medications at home.
--- NOTE | 2025-09-25 09:21 | P.HPGS_ITS ---
History of Present Illness History of Present Illness Date of Service: 09/25/25 Chief complaint: Abdominal Pain Narrative: Jose Antonio Foss is a 35 year old male complaining of right lower quadrant pain nausea and vomiting starting since yesterday. Patient was here back in February with a very similar presentation at the time it seemed that he had early appendicitis. His white count was elevated and there was some mild inflammatory changes around the appendix. Patient was scheduled to go on vacation and fly t [place] so he did not want surgery and was treated with antibiotics and improved. Now he is having another flare-up which he says is very similar. CT scan shows distended dilated appendix not with very much inflammatory changes but the patient is tender in the right lower quadrant. Review of Systems Review of Systems: Yes all other systems are reviewed and are negative PMFSH Past Medical History Medical History Appendicitis Social History Social History Household Members: Family Housing: House Are you a primary resident care aid to a significant other at home: No Do you presently have visiting nurse or other home services: No Patient Tobacco Use Status: Current everyday Tobacco user Tobacco use type: Cigarette Cigarette Packs Per Day: 0.5 Cigarettes Per Day: 10.0 Second Hand Smoke Exposure: No Advance Directives: No Advance Directives Information Provided: No service: No Current occupational status: unemployed Current occupation: rt handed Meds Allergies Allergy/AdvReac Type Severity Reaction Status Date / Time No Known Allergies (No Known Allergy Verified 09/24/25 21:52 Allergies*) Active Medications: Current Medications Acetaminophen (Acetaminophen 325 Mg Tablet) 650 mg PO Q6H PRN PRN Reason: Pain, Mild 1-3,fever,headache Piperacillin Sod/Tazobactam (Sod 3.375 gm/ Sodium Chloride) 50 mls @ 100 mls/hr IV Q6H GABBY Magnesium Hydroxide (Milk Of Magnesia 30 Ml Oral.Susp) 30 ml PO DAILY PRN PRN Reason: Constipation Melatonin (Melatonin 3 Mg Tablet) 6 mg PO BEDTIME PRN PRN Reason: Insomnia Morphine Sulfate (Morphine Sulfate 4 Mg/Ml Cartridge) 2 mg IVPUSH Q4H PRN; Protocol PRN Reason: Pain, Severe (Pain Scale 7-10) Ondansetron HCl (Ondansetron Hcl 4 Mg/2 Ml Vial) 4 mg IVPUSH Q8H PRN PRN Reason: Nausea and Vomiting Sodium Chloride (0.9 % Sodium Chloride Flush 3 Ml Syringe) 3 [facility] Home Medications ?Medication ?Instructions ?Recorded ?Confirmed ?Last Taken ?Type No Known Home Meds 09/25/25 09/25/25 Un known History Physical Exam Vital Signs: Vital Signs: Last Vital Signs Temp 97.6 F 09/25/25 09:21 Pulse 76 09/25/25 09:21 Resp 16 09/25/25 09:21 BP 117/69 09/25/25 09:21 Pulse Ox 98 09/25/25 09:21 O2 Del Method Room Air 09/25/25 09:21 BMI result Body Mass Index 26.7 Const: General: cooperative, healthy appearing, comfortable and acute distress mild Orientation/consciousness: patient oriented x3 Resp: Effort & Inspection: normal respiratory effort Auscultation: clear to auscultation bilaterally Cardio: Rate: regular rate Rhythm: regular rhythm GI: Other: Abdomen is soft nondistended tender in the right lower quadrant with some mild guarding no rebound no peritoneal sign Skin: Other: Nonicteric Neuro: General: patient oriented x3 Results Results Labs: Short CBC 09/24/25 Range/Units 22:05 WBC 8.5 (4.8-10.8) X10*3/uL Hgb 14.0 (14.0-18.0) g/dl Hct 40.6 L (42.0-52.0) % Plt Count 253 D (160-400) X10*3/uL BMP 09/24/25 22:05 Sodium 141 Potassium 3.6 Chloride 105 Carbon Dioxide 26 BUN 18 H Creatinine 0.90 Calcium 9.5 Liver Function 09/24/25 Range/Units 22:05 Total Bilirubin 0.5 (0.0-1.0) mg/dL AST 29 (5-37) U/L ALT 34 (0-40) U/L Alkaline Phosphatase 59 (39-117) U/L Albumin 4.8 (3.5-5.0) g/dL Additional studies: Patient: Jose Antonio Foss MR#: [id number] : 1990 Acct:[id number] Age/Sex: 35 / M ADM Date: 09/24/25 Loc: HO.ED Attending Dr: Ordering Physician: Eugenia Gonzales DO Date of Service: 09/25/25 Procedure(s): CT abdomen pelvis w IV con Accession Number(s): [id number] cc: Eugenia Gonzales DO; Shanda Lima~ Report Number: [id number]: Total DLP = 0.00 mGy-cm Reason for Exam: RLQ pain, hx appendicitis CLINICAL HISTORY: RLQ pain, hx appendicitis CT abdomen and pelvis with contrast Comparison: CT/SR - CT ABDOMEN PELVIS W IV CON - 02/19/25 12:02 EDT Findings: The lung bases are clear. Unremarkable gallbladder and solid organs. No urolithiasis. No bowel obstruction, pneumoperitoneum, or pneumatosis. There is stable dilation of the fluid-filled appendix measuring 1 cm, previously 0.9 cm. There is no appendicolith, periappendiceal fat stranding, or periappendiceal abscess. Prominent but nonenlarged lymph nodes are seen near the appendix. No definite evidence of acute appendicitis. Stable post hernia repair in the left lower abdomen. Pelvic contents unremarkable. No abdominopelvic free fluid. The bones are intact. 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 Plan to carry out laparoscopic appendectomy risks and benefits discussed with the patient including but not limited to bleeding infection possible bowel are organ injury possible open procedure and despite this he wishes to proceed. Quality Stroke Does the patient have a stroke diagnosis?: No VTE Prior VTE?: No VTE Risk Level:: Surgical - low VTE Device Contraindication: N/A - Device Ordered VTE Drug Contraindication: Treatment Not Indicated Procedures Date of Service Date of Service: 09/25/25
--- NOTE | 2025-09-25 12:15 | HO.ANESPROP2 ---
HPI - Anesthesia Eval Consult details Narrative: Acute appendicitis PMFSH Active Problems Active Problems: All Active Problems Nausea and vomiting (Acute) Abdominal pain, acute, right lower quadrant (Acute) Acute appendicitis (Acute) Closed fracture of scaphoid of left wrist (Acute) Left wrist pain (Acute) Numbness and tingling in right hand (Acute) Subluxation of carpometacarpal (CMC) joint of right hand (Acute) Closed dislocation of fourth carpometacarpal joint of right hand (Acute) Fracture of hamate of right wrist (Acute) Past Medical History Medical History Appendicitis Family History Family history of problems with anesthesia: No Surgical History History of Problems with Anesthesia: No Social History Social History Household Members: Family Housing: House Are you a primary anesthesiologist and critical care to a significant other at home: No Do you presently have visiting nurse or other home services: No Patient Tobacco Use Status: Current everyday Tobacco user Tobacco use type: Cigarette Cigarette Packs Per Day: 0.5 Cigarettes Per Day: 10.0 Second Hand Smoke Exposure: No Advance Directives: No Advance Directives Information Provided: No service: No Current occupational status: unemployed Current occupation: rt handed Meds Allergies Allergy/AdvReac Type Severity Reaction Status Date / Time No Known Allergies (No Known Allergy Verified 09/24/25 21:52 Allergies*) Active Medications: Current Medications Acetaminophen (Acetaminophen 325 Mg Tablet) 650 mg PO Q6H PRN PRN Reason: Pain, Mild 1-3,fever,headache Piperacillin Sod/Tazobactam (Sod 3.375 gm/ Sodium Chloride) 50 mls @ 100 mls/hr IV Q6H [facility] Magnesium Hydroxide (Milk Of Magnesia 30 Ml Oral.Susp) 30 ml PO DAILY PRN PRN Reason: Constipation Melatonin (Melatonin 3 Mg Tablet) 6 mg PO BEDTIME PRN PRN Reason: Insomnia Morphine Sulfate (Morphine Sulfate 4 Mg/Ml Cartridge) 2 mg IVPUSH Q4H PRN; Protocol PRN Reason: Pain, Severe (Pain Scale 7-10) Ondansetron HCl (Ondansetron Hcl 4 Mg/2 Ml Vial) 4 mg IVPUSH Q8H PRN PRN Reason: Nausea and Vomiting Sodium Chloride (0.9 % Sodium Chloride Flush 3 Ml Syringe) 3 ml IVFLUSH QSHIFT [facility] Home Medications ?Medication ?Instructions ?Recorded ?Confirmed ?Last Taken ?Type No Known Home Meds 09/25/25 09/25/25 Unknown History Exam Height,Weight and Vital Signs: Height 5 ft 10 in Weight 84.3 kg Last Vital Signs Temp 97.6 F 09/25/25 09:21 Pulse 76 09/25/25 09:21 Resp 16 09/25/25 09:21 BP 117/69 09/25/25 09:21 Pulse Ox 98 09/25/25 09:21 O2 Del Method Room Air 09/25/25 09:21 Pertinent Lab Results Pertinent Lab Results: Laboratory Tests 09/24/25 22:05 WBC 8.5 RBC 4.45 L Hgb 14.0 Hct 40.6 L MCV 91.2 MCH 31.5 MCHC 34.5 RDW 11.4 Plt Count 253 D MPV 9.2 L Immature Gran % (Auto) 0.1 Neut % (Auto) 52.9 Lymph % (Auto) 34.0 [place] % (Auto) 10.4 Eos % (Auto) 2.1 Baso % (Auto) 0.5 Lymph # (Auto) 2.9 [place] # (Auto) 0.9 Eos # (Auto) 0.2 Baso # (Auto) 0.0 Abs Immat Gran (auto) 0.01 Absolute Neuts (auto) 4.5 Absolute Nucleated RBC 0.000 Nucleated RBC % (auto) 0.0 Sodium 141 Potassium 3.6 Chloride 105 Carbon Dioxide 26 Anion Gap 14 BUN 18 H Creatinine 0.90 Estim Creat Clear Calc 120.5 Estimated GFR > 60 Random Glucose 102 Calcium 9.5 Total Bilirubin 0.5 AST 29 ALT 34 Alkaline Phosphatase 59 Total Protein 7.6 Albumin 4.8 Lipase 32 Airway Mallampati Class: I TM Dist: >3cm Neck ROM: Full Loose/Missing/Broken Teeth: No Heart: RRR Lungs: CTA Assessment and Plan Assessment Anesthesia Assessment: Anesthesia Plan Discussed and Chart Reviewed Final Anesthetic Review Family History of Problems with Anesthesia: No History of Problems with Anesthesia: No NPO: Yes ASA Class: I Final Preanesthetic Review: No Changes in Pt Med Stat, Meds/Allgs Chart Reviewed, Consent Obtained/Reviewed and Anes Risks/Benef Reviewed Patient Risk: Low Procedure Risk: Intermediate Anesthetic Plan Anesthetic Plan: GA Disposition: Standard PACU
--- NOTE | 2025-09-25 15:45 | PC.RT ---
RT called to bedside for pt desat. Pt transfered to 3rd floor from PACU post appendix surgery on 5L NC, SATs noted to be 85% by RN. RT placed pt on NRB 15L and encouraged deep breathing. RN administered pain meds per MAR, improvement in pain per pt. Pt SATs increased to 96% on NRB. Oxygen switched to snyder cannula for titration. Pt currently on 10L [place] SATs 94%. L/s clear bilateral, pt resting comfortably, not tachypneic nor tachycardic. Pt given incentive spirometer, able to achieve max volume of 2500. Surgeon at bedside. Will continue to monitor and titrate O2.
[2025-09-25] MEDS: oxyCODONE HCl Immed Release 5 MG TABLET 10 MG PO (15:49)
[2025-09-25] MEDS: 0.9 % Sodium Chloride Flush 3 ML SYRINGE IVFLUSH ×2 (16:50→20:22)
[2025-09-25] MEDS: Albuterol Sulfate 7.5 MG, Albuterol Sulfate (0.083%) 2.5 MG 10 MG INHALE (17:53)
--- NOTE | 2025-09-25 17:56 | PC.RT ---
Pt SATs still low at 92% on 15L rodarte cannula. Pt given albuterol breathing tx 10mg and placed on HFNC. SATs 98% on 40L/40% HFNC. RR 14, pt comfortable in bed, however taking shallow breaths. Pt L/S clear/diminished with faint crackles in bases. MD at bedside. Pt comfortable at this time, tolerating HFNC well. Will continue to monitor.
--- NOTE | 2025-09-25 18:02 | PC.RT ---
ABG cancelled per MD request.
--- NOTE | 2025-09-25 18:29 | PM.IMCN ---
History of Present Illness Data of Consult Service Date: 09/25/25 Primary Care Provider: BRANDI [place] HPI Reason for consult: hpyoxia 35M PMH nicotine dependence, presented with appendicitis. Underwent appendectomy. Postoperatively patient noted to be severely hypoxic and tachypneic requiring high-flow to maintain saturations in the low 90s. Patient did well with incentive spirometer and saturations did improve. But quickly desaturates again when resting or sleeping. Denies chest pain. Review of Systems Review of Systems: Yes all other systems are reviewed and are negative [facility] Medical History Appendicitis Social History Household Members: Spouse, Family and Children Housing: House Are you a primary acute care nurse to a significant other at home: No Do you presently have visiting nurse or other home services: No Patient Tobacco Use Status: Current everyday Tobacco user Tobacco use type: Cigarette Cigarette Packs Per Day: 1 Cigarettes Per Day: 20.0 e-Cigarette/Vaping Use: Never Used Second Hand Smoke Exposure: No service: No Current occupational status: unemployed Current occupation: rt handed Meds Allergies Allergy/AdvReac Type Severity Reaction Status Date / Time No Known Allergies (No Known Allergy Verified 09/24/25 21:52 Allergies*) Active Medications: Current Medications Acetaminophen (Acetaminophen 325 Mg Tablet) 650 mg PO Q6H PRN PRN Reason: Pain, Mild 1-3,fever,headache Piperacillin Sod/Tazobactam (Sod 3.375 gm/ Sodium Chloride) 50 mls @ 100 mls/hr IV Q6H [facility] Last Infusion: 09/25/25 15:20 Dose: Infused Ketorolac Tromethamine (Ketorolac Tromethamine 15 Mg/Ml Vial) 15 mg IVPUSH Q6H [facility] Last Admin: 09/25/25 15:19 Dose: Not Given Magnesium Hydroxide (Milk Of Magnesia 30 Ml Oral.Susp) 30 ml PO DAILY PRN PRN Reason: Constipation Melatonin (Melatonin 3 Mg Tablet) 6 mg PO BEDTIME PRN PRN Reason: Insomnia Morphine Sulfate (Morphine Sulfate 4 Mg/Ml Cartridge) 2 mg IVPUSH Q4H PRN; Protocol PRN Reason: Pain, Severe (Pain Scale 7-10) Naloxone HCl (Naloxone Hcl 0.4 Mg/Ml Vial) 0.04 mg IVPUSH Q5M PRN PRN Reason: Excessive sedation or RR < 8 Ondansetron HCl (Ondansetron Hcl 4 Mg/2 Ml Vial) 4 mg IVPUSH Q8H PRN PRN Reason: Nausea and Vomiting Oxycodone HCl (Oxycodone Hcl Immed Release 5 Mg Tablet) 10 mg PO Q4H PRN PRN Reason: Pain, Moderate(Pain Scale 4-6) Last Admin: 09/25/25 15:49 Dose: 10 mg Oxycodone HCl (Oxycodone Hcl Immed Release 5 Mg Tablet) 5 mg PO Q4H PRN PRN Reason: Pain, Mild (Pain Scale 1-3) Sodium Chloride (0.9 % Sodium Chloride Flush 3 Ml Syringe) 3 ml IVFLUSH QSHIFT [facility] Last Admin: 09/25/25 16:50 Dose: 3 ml Physical Exam Vital Signs and Narrative: Vital Signs: Last Vital Signs Temp 97.4 F 09/25/25 15:16 Pulse 82 09/25/25 17:54 Resp 14 09/25/25 17:55 BP 111/66 09/25/25 16:00 Pulse Ox 91 L 09/25/25 16:00 O2 Del Method Humidified O2 09/25/25 16:00 O2 Flow Rate 13 09/25/25 16:00 BMI result Body Mass Index 26.7 General: AO X 3, dyspneic Resp: Crackles at bases bilateral, accessory muscles used CVS: S1,S2,RRR GI: soft, non tender, non distended Neuro: motor grossly intact, alert Psych: appropriate affect, appropriate insight Results Labs 09/24/25 22:05 09/24/25 22:05 Labs: Laboratory Results - last 24 hr 09/24/25 22:05 MCV 91.2 MCH 31.5 MCHC 34.5 RDW 11.4 Plt Count 253 D MPV 9.2 L Immature Gran % (Auto) 0.1 Neut % (Auto) 52.9 Lymph % (Auto) 34.0 [place] % (Auto) 10.4 Eos % (Auto) 2.1 Baso % (Auto) 0.5 Lymph # (Auto) 2.9 [place] # (Auto) 0.9 Eos # (Auto) 0.2 Baso # (Auto) 0.0 Abs Immat Gran (auto) 0.01 Absolute Neuts (auto) 4.5 Absolute Nucleated RBC 0.000 Nucleated RBC % (auto) 0.0 Anion Gap 14 Estim Creat Clear Calc 120.5 Estimated GFR > 60 Random Glucose 102 Calcium 9.5 Total Bilirubin 0.5 AST 29 ALT 34 Alkaline Phosphatase 59 Total Protein 7.6 Albumin 4.8 Lipase 32 Assessment and Plan (1) Acute hypoxic respiratory failure: Status: Acute Plan 35M PMH nicotine dependence admitted for appendectomy, developed acute hypoxia postop Acute hypoxic respiratory failure Differential includes atelectasis, aspiration pneumonitis Continue O2 support with high-flow, incentive spirometry Wean O2 as tolerated Check chest x-ray We will continue to follow along with you
--- NOTE | 2025-09-25 18:32 | PC.NURSE ---
Pt unable to maintain oxygen sats without respiratory support, Resp therapy and MD consulted, pt placed on high flow O2. Pt put onto tele, cont ox, EKG completed, other orders pending. Pt ransported to [facility] per RT and MD for closer monitoring.
--- NOTE | 2025-09-25 18:46 | PM.EVENT ---
Event Note Date of Service: 09/26/25 Event Note: postop on floor pt desaturating into 80s and responding with facemask and nasal canula 12 l. significant change - not crackles or wheezes, pain controlled. no reason for PE - respt therapy working with pt and can pull volumes of 2500 on IS cxr - opacities -? penumonia - pt may have had a silent aspiration in OR plan to cont with tx for his appendicitis , antibx and o2 support with high flow and wean as tolerated. appreciate med team following Time Spent With Patient Time: Total time managing care of this patient today ____ minutes.
--- NOTE | 2025-09-25 19:32 | PC.NURSE ---
Pt arrived from PACU 1500. First set of VS showed Sats 85% on 3L NC. Pt alert and oriented, other VSS, lung sounds diminished in bases, pt with harsh productive cough w scant bloody sputum. Pt resp status escalated such RT was called. MD also alerted who came to the bedside and ordered 12 lead EKG, tele with cont O2 monitoring, CXR. Pt eventually required high flow O2 and was transferred to [facility].
[2025-09-25] MEDS: Albuterol/Iprat 2.5/0.5MG 3 ML AMPUL.NEB INHALE (22:14)
[2025-09-25] MEDS: Nicotine 14 MG PATCH.TD24 TRANSDERMA (23:42)
[2025-09-26 00:11] VITALS: BP 102/56
[2025-09-26 03:41] VITALS: BP 104/57; PULSE 78; RESP 16; TEMP 36.1; O2SAT 97
[2025-09-26] MEDS: 0.9 % Sodium Chloride Flush 3 ML SYRINGE IVFLUSH (07:13)
[2025-09-26 07:45] LABS: Hematocrit 40.0 % (42.0-52.0); Hemoglobin 13.3 g/dl (14.0-18.0); Mean Corpuscular HGB Conc 33.3 g/dl (31.0-36.0); Mean Corpuscular Hemoglobin 31.4 pg (27.0-33.0); Mean Corpuscular Volume 94.3 fL (80.0-98.0); NRBC Abs Auto 0.000 X10*3/uL (0.0-0.012); NRBC Pct Auto 0.0 /100WBC (0.0-0.2); Platelet Count 221 X10*3/uL (160-400); Red Blood Count 4.24 X10*6/uL (4.60-5.80); White Blood Count 16.2 X10*3/uL (4.8-10.8)
[2025-09-26 07:47] VITALS: BP 109/59; PULSE 79; RESP 18; TEMP 36.4; O2SAT 97
--- NOTE | 2025-09-26 07:55 | PM.PNGS ---
Subjective Subjective Date of Service: 09/26/25 <Katrin [place] PA-C - Last Filed: 09/26/25 08:01> 09/26/25 <Julio C Wilcox MD - Last Filed: 09/26/25 08:06> Interval history: Underwent appendectomy yesterday, became hypoxic post operatively. CXR -Perihilar centrilobular ground-glass opacities concerning for PNA. Desaturates quickly off O2 and with ambulation. He feels ok this morning, denies shortness of breath. Endorses heavy smoking history and smokes 1PPD. Reports some incisional soreness. <Katrin [place] PA-C - Last Filed: 09/26/25 08:01> Physical Exam Vital Signs: Vital Signs: Last Vital Signs Temp 97.5 F 09/26/25 07:47 Pulse 79 09/26/25 07:47 Resp 18 09/26/25 07:47 BP 109/59 L 09/26/25 07:47 Pulse Ox 97 09/26/25 07:47 O2 Del Method Nasal Cannula 09/26/25 07:47 O2 Flow Rate 2 09/26/25 07:47 FiO2 37 09/25/25 18:46 BMI result Body Mass Index 26.7 <Katrin [place] PA-C - Last Filed: 09/26/25 08:01> Const: General: comfortable, no acute distress and alert <Katrin [place] PA-C - Last Filed: 09/26/25 08:01> Orientation/consciousness: patient oriented x3 <Katrin [place] PA-C - Last Filed: 09/26/25 08:01> Resp: Effort & Inspection: normal respiratory effort, able to speak in complete sentences, not tachypneic and no use of accessory muscles <Katrin [place] PA-C - Last Filed: 09/26/25 08:01> GI: Inspection: Yes distended (mild) and Yes incision (dressings intact) <JAYNA Quiroga Last Filed: 09/26/25 08:01> Palpation (GI): Soft to palpation, Tenderness to palpation present (GI) (mild incisional), no guarding and not rigid <JAYNA Quiroga Last Filed: 09/26/25 08:01> Skin: General skin exam: no rashes or lesions noted <Katrin [place] PA-C - Last Filed: 09/26/25 08:01> Neuro: General: patient oriented x3 and moves all extremities <Katrin Colorado PA-C - Last Filed: 09/26/25 08:01> Objective Data Active Medications Acetaminophen (Acetaminophen 325 Mg Tablet) 650 mg PO Q6H PRN PRN Reason: Pain, Mild 1-3,fever,headache Albuterol/Ipratropium (Albuterol/Iprat 2.5/0.5mg 3 Ml Ampul.Neb) 3 ml INHALE RQ4H WHILE AWAKE PRN PRN Reason: Shortness of Breath Last Admin: 09/25/25 22:14 Dose: 3 ml Documented By: AZUL Piperacillin Sod/Tazobactam (Sod 3.375 gm/ Sodium Chloride) 50 mls @ 100 mls/hr IV Q6H [facility] Last Infusion: 09/26/25 06:28 Dose: Infused Documented By: KALI Ketorolac Tromethamine (Ketorolac Tromethamine 15 Mg/Ml Vial) 15 mg IVPUSH Q6H [facility] Last Admin: 09/26/25 07:20 Dose: 15 mg Documented By: ELTON Magnesium Hydroxide (Milk Of Magnesia 30 Ml Oral.Susp) 30 ml PO DAILY PRN PRN Reason: Constipation Melatonin (Melatonin 3 Mg Tablet) 6 mg PO BEDTIME PRN PRN Reason: Insomnia Morphine Sulfate (Morphine Sulfate 4 Mg/Ml Cartridge) 2 mg IVPUSH Q4H PRN; Protocol PRN Reason: Pain, Severe (Pain Scale 7-10) Last Admin: 09/26/25 06:33 Dose: 2 mg Documented By: KALI Naloxone HCl (Naloxone Hcl 0.4 Mg/Ml Vial) 0.04 mg IVPUSH Q5M PRN PRN Reason: Excessive sedation or RR < 8 Ondansetron HCl (Ondansetron Hcl 4 Mg/2 Ml Vial) 4 mg IVPUSH Q8H PRN PRN Reason: Nausea and Vomiting Oxycodone HCl (Oxycodone Hcl Immed Release 5 Mg Tablet) 10 mg PO Q4H PRN PRN Reason: Pain, Moderate(Pain Scale 4-6) Last Admin: 09/25/25 15:49 Dose: 10 mg Documented By: KIRAN Oxycodone HCl (Oxycodone Hcl Immed Release 5 Mg Tablet) 5 mg PO Q4H PRN PRN Reason: Pain, Mild (Pain Scale 1-3) Sodium Chloride (0.9 % Sodium Chloride Flush 3 Ml Syringe) 3 ml IVFLUSH QSHIFT [facility] Last Admin: 09/26/25 07:13 Dose: 3 ml Documented By: ELTON <Katrin [place] PA-C - Last Filed: 09/26/25 08:01> Labs CBC & Chem 7: 09/26/25 06:49 09/26/25 06:49 <Katrin [place] PA-C - Last Filed: 09/26/25 08:01> Labs: Laboratory Results - last 24 hr 09/26/25 06:49 MCV 94.3 MCH 31.4 MCHC 33.3 RDW 11.3 Plt Count 221 MPV 9.9 Absolute Nucleated RBC 0.000 Nucleated RBC % (auto) 0.0 <Katrin [place] PA-C - Last Filed: 09/26/25 08:01> Procedures Date of Service Date of Service: 09/26/25 <Katrin [place] PA-C - Last Filed: 09/26/25 08:01> 09/26/25 <Julio C Wilcox MD - Last Filed: 09/26/25 08:06> Progress Note: A&P Assessment and plan (1) Acute appendicitis: Status: Acute <Katrin [place] PA-C - Last Filed: 09/26/25 08:01> Assessment and Plan: patient now on O2 by nasal cannula we will try to wean off O2 support patient is a known smoker abdomen is soft and benign tolerating diet plan to DC home once off O2 supplementation doing well from surgical standpoint possibly home tomorrow depending on respiratory status seen and examined independently <Julio C Wilcox MD - Last Filed: 09/26/25 08:06> (2) S/P laparoscopic appendectomy: Status: Acute <Katrin [place] PA-C - Last Filed: 09/26/25 08:01> (3) Acute hypoxic respiratory failure: Status: Acute <Katrin [place] PA-C - Last Filed: 09/26/25 08:01> Assessment and Plan: POD #1 s/p lap appy. Clinically appearing well, no respiratory distress. VSS. Wean O2 as tolerated today. Diet as tolerated. Cont IV zosyn. Encouraged OOB/ambulation and increasing activity, IS use 10x/hr. Smoking cessation. Patient comfortable with plan. <Katrin [place] PA-C - Last Filed: 09/26/25 08:01> Time Spent With Patient Time: Total time managing care of this patient today ____ minutes. <Katrin [place] PA-C - Last Filed: 09/26/25 08:01> Quality Stroke Does the patient have a stroke diagnosis?: No <Katrin [place] PA-C - Last Filed: 09/26/25 08:01> VTE Prior VTE?: No <Katrin [place] PA-C - Last Filed: 09/26/25 08:01> VTE Risk Level:: Surgical - low <Katrin [place] PA-C - Last Filed: 09/26/25 08:01> VTE Device Contraindication: N/A - Device Ordered <JAYNA Quiroga Last Filed: 09/26/25 08:01> VTE Drug Contraindication: Treatment Not Indicated <JAYNA Quiroga Last Filed: 09/26/25 08:01>
[2025-09-26 08:00] LABS: Alanine Aminotransferase 19 U/L (0-40); Albumin Level 3.8 g/dL (3.5-5.0); Alkaline Phosphatase 50 U/L (39-117); Anion Gap 14 (12-20); Aspartate Amino Transferase 23 U/L (5-37); Blood Urea Nitrogen 19 mg/dL (9-16); Carbon Dioxide 24 mmol/L (22-29); Chloride 106 mmol/L (96-108); Creatinine Clr Calc Pharmacy 123.2; Estimated Glomerular Filt Rate > 60; Magnesium 1.8 mg/dL (1.6-2.6); Potassium 3.5 mmol/L (3.3-5.1); Sodium 140 mmol/L (135-145); Total Protein 6.0 g/dL (6.5-8.0)
--- NOTE | 2025-09-26 08:05 | HO.POSTANES ---
Post Anesthesia Evaluation Post Anesthesia Evaluation Date of Service: 09/26/25 Vital Signs: Vital Signs Temp Pulse Resp BP Pulse Ox O2 Del Method O2 Flow Rate 09/26/25 07:47 97.5 F 79 18 109/59 L 97 Nasal Cannula 2 09/26/25 03:41 96.9 F 78 16 104/57 L 97 Nasal Cannula 2 09/26/25 00:11 102/56 L 09/25/25 23:43 97.6 F 83 18 103/53 L 95 Nasal Cannula 2 09/25/25 22:30 18 09/25/25 22:14 94 20 Anesthesia: General Mental Status: Awake Pain Control: Satisfactory Nausea/Vomiting: None Hydration: Adequate Anesthesia-Related Issues: No Anes. Related Issues
[2025-09-26 08:07] LABS: Calcium 8.5 mg/dL (8.4-10.2)
--- NOTE | 2025-09-26 09:47 | MHC.CM.PN ---
Pt. lives with his and children, PCP confirmed: BRANDI Rich. HCP discussed, he will complete form and it will be added to his chart. Pt. does not use home health services or DME, to transport home at DC, DCP: home, self care, CM to follow for DC needs.
[2025-09-26 12:08] VITALS: BP 126/79; PULSE 64; RESP 20; TEMP 36.6; O2SAT 96
[2025-09-26] MEDS: oxyCODONE HCl Immed Release 5 MG TABLET PO ×2 (13:38→17:39)
--- NOTE | 2025-09-26 14:38 | PM.EVENT ---
Event Note Date of Service: 09/26/25 Event Note: Seen on afternoon rounds Says he feels well Had ambulated with the O2 nasal cannula States that he would do well with this Abdomen is soft and benign Tolerating diet Possible DC home tomorrow once off of O2 supplementation Time Spent With Patient Time: Total time managing care of this patient today ____ minutes.
--- NOTE | 2025-09-26 18:13 | PC.NURSE ---
Pt weened off of supplemental o2 sating 93-94% on RA. will continue to monitor.
[2025-09-26 19:14] VITALS: BP 116/58; PULSE 75; RESP 18; TEMP 36.6; O2SAT 94
[2025-09-26 23:28] VITALS: BP 106/66; PULSE 85; RESP 19; TEMP 36.8; O2SAT 96
[2025-09-27] MEDS: 0.9 % Sodium Chloride Flush 3 ML SYRINGE IVFLUSH ×2 (01:11→08:28)
[2025-09-27] MEDS: oxyCODONE HCl Immed Release 5 MG TABLET 10 MG PO ×2 (02:41→08:28)
[2025-09-27] MEDS: Nicotine 21 MG PATCH.TD24 TRANSDERMA (03:08)
[2025-09-27 03:13] VITALS: BP 112/59; PULSE 82; RESP 19; TEMP 36.2; O2SAT 96
[2025-09-27 07:23] VITALS: BP 102/64; PULSE 87; RESP 18; TEMP 36.6; O2SAT 94
--- NOTE | 2025-09-27 07:46 | P.PNGS_ITS ---
Subjective Subjective Date of Service: 09/27/25 <Katrin Colorado PA-C - Last Filed: 09/27/25 07:52> 09/27/25 <Julio C Wilcox MD - Last Filed: 09/27/25 08:18> Interval history: Off supplemental oxygen overnight and remained low 90s. Denies shortness of breath. Ambulated halls yesterday and was using incentive spirometer. Tolerating solid diet. Pain mild and well controlled. Wants to go home. < Katrin Colorado PA-C - Last Filed: 09/27/25 07:52> Physical Exam 2 Vital Signs: Vital Signs: Last Vital Signs Temp 97.9 F 09/27/25 07:23 Pulse 87 09/27/25 07:23 Resp 18 09/27/25 07:23 BP 102/64 09/27/25 07:23 Pulse Ox 94 09/27/25 07:23 O2 Del Method Room Air 09/27/25 07:23 O2 Flow Rate 2 09/26/25 12:08 FiO2 37 09/25/25 18:46 BMI result Body Mass Index 26.7 <Katrin Colorado PA-C - Last Filed: 09/27/25 07:52> Const: General: comfortable, no acute distress and alert <JAYNA Quiroga Last Filed: 09/27/25 07:52> Orientation/consciousness: patient oriented x3 <Katrin Colorado PA-C - Last Filed: 09/27/25 07:52> Resp: Effort & Inspection: normal respiratory effort, able to speak in complete sentences, not tachypneic and no use of accessory muscles <Katrin Colorado PA-C - Last Filed: 09/27/25 07:52> GI: Other: abdomen soft mild incisional tenderness incisions clean <JAYNA Quiroga Last Filed: 09/27/25 07:52> Inspection: No distended <JAYNA Quiroga Last Filed: 09/27/25 07:52> Palpation (GI): no guarding <JAYNA Quiroga Last Filed: 09/27/25 07:52> Skin: General skin exam: no rashes or lesions noted <Katrin Colorado PA-C - Last Filed: 09/27/25 07:52> Neuro: General: patient oriented x3 and moves all extremities <Katrin Colorado PA-C - Last Filed: 09/27/25 07:52> Objective Data Active Medications Acetaminophen (Acetaminophen 325 Mg Tablet) 650 mg PO Q6H PRN PRN Reason: Pain, Mild 1-3,fever,headache Albuterol/Ipratropium (Albuterol/Iprat 2.5/0.5mg 3 Ml Ampul.Neb) 3 ml INHALE RQ4H WHILE AWAKE PRN PRN Reason: Shortness of Breath Last Admin: 09/25/25 22:14 Dose: 3 ml Documented By: AZUL Piperacillin Sod/Tazobactam (Sod 3.375 gm/ Sodium Chloride) 50 mls @ 100 mls/hr IV Q6H [facility] Last Infusion: 09/27/25 06:05 Dose: Infused Documented By: NATASHA Ketorolac Tromethamine (Ketorolac Tromethamine 15 Mg/Ml Vial) 15 mg IVPUSH Q6H [facility] Last Admin: 09/27/25 01:11 Dose: 15 mg Documented By: NATASHA Magnesium Hydroxide (Milk Of Magnesia 30 Ml Oral.Susp) 30 ml PO DAILY PRN PRN Reason: Constipation Melatonin (Melatonin 3 Mg Tablet) 6 mg PO BEDTIME PRN PRN Reason: Insomnia Morphine Sulfate (Morphine Sulfate 4 Mg/Ml Cartridge) 2 mg IVPUSH Q4H PRN; Protocol PRN Reason: Pain, Severe (Pain Scale 7-10) Last Admin: 09/26/25 06:33 Dose: 2 mg Documented By: KALI Naloxone HCl (Naloxone Hcl 0.4 Mg/Ml Vial) 0.04 mg IVPUSH Q5M PRN PRN Reason: Excessive sedation or RR < 8 Nicotine (Nicotine 21 Mg Patch.Td24) 21 mg TRANSDERMA DAILY [facility] Last Admin: 09/27/25 03:08 Dose: 21 mg Documented By: NATASHA Ondansetron HCl (Ondansetron Hcl 4 Mg/2 Ml Vial) 4 mg IVPUSH Q8H PRN PRN Reason: Nausea and Vomiting Oxycodone HCl (Oxycodone Hcl Immed Release 5 Mg Tablet) 10 mg PO Q4H PRN PRN Reason: Pain, Moderate(Pain Scale 4-6) Last Admin: 09/27/25 02:41 Dose: 10 mg Documented By: NATASHA Oxycodone HCl (Oxycodone Hcl Immed Release 5 Mg Tablet) 5 mg PO Q4H PRN PRN Reason: Pain, Mild (Pain Scale 1-3) Last Admin: 09/26/25 17:39 Dose: 5 mg Documented By: ELTON Sodium Chloride (0.9 % Sodium Chloride Flush 3 Ml Syringe) 3 ml IVFLUSH [facility] Last Admin: 09/27/25 01:11 Dose: 3 ml Documented By: NATASHA <Katrin Colorado PA-C - Last Filed: 09/27/25 07:52> Labs CBC & Chem 7: 09/26/25 06:49 09/26/25 06:49 <Katrin Colorado PA-C - Last Filed: 09/27/25 07:52> Labs: Laboratory Results - last 24 hr 09/26/25 06:49 MCV 94.3 MCH 31.4 MCHC 33.3 RDW 11.3 Plt Count 221 MPV 9.9 Absolute Nucleated RBC 0.000 Nucleated RBC % (auto) 0.0 Anion Gap 14 Estim Creat Clear Calc 123.2 Estimated GFR > 60 Random Glucose 144 H Calcium 8.5 D Magnesium 1.8 Total Bilirubin 0.8 Direct Bilirubin 0.2 AST 23 ALT 19 Alkaline Phosphatase 50 Total Protein 6.0 L Albumin 3.8 <Katrin Colorado PA-C - Last Filed: 09/27/25 07:52> Microbiology Microbiology Results: Microbiology 09/25/25 06:17 Blood Culture - Preliminary Blood - Venous No growth after 24 hours. 09/25/25 06:20 Blood Culture - Preliminary Blood - Venous No growth after 24 hours. <Katrin Colorado PA-C - Last Filed: 09/27/25 07:52> Procedures Date of Service Date of Service: 09/27/25 <Katrin Colorado PA-C - Last Filed: 09/27/25 07:52> 09/27/25 <Julio C Wilcox MD - Last Filed: 09/27/25 08:18> Progress Note: A&P Assessment and plan (1) S/P laparoscopic appendectomy: Status: Acute <Katrin Colorado PA-C - Last Filed: 09/27/25 07:52> Assessment and Plan: Has been off oxygen supplementation Feels comfortable and denies shortness of breath Tolerating diet well Good pain control Abdomen is soft and benign Incisions clean and dry Okay to DC home Discharge instructions reinforced with the patient Seen and examined independently <Julio C Wilcox MD - Last Filed: 09/27/25 08:18> (2) Acute hypoxic respiratory failure: Status: Acute <Katrin Colorado PA-C - Last Filed: 09/27/25 07:52> Assessment and Plan: POD #2 s/p lap appy. Clinically appearing well, no respiratory distress, off supplemental O2 and O2 sat remains low to mid 90s. Abd remains benign with clean incisions. Stable for dc to home today. Will dc off abx. Patient comfortable with plan. Encouraged IS use 10x/hr at home and smoking cessation. F/u in office in 1-2 weeks. <Katrin Colorado PA-C - Last Filed: 09/27/25 07:52> Time Spent With Patient Time: Total time managing care of this patient today ____ minutes. <Katrin Colorado PA-C - Last Filed: 09/27/25 07:52> Quality Stroke Does the patient have a stroke diagnosis?: No <Katrin Colorado PA-C - Last Filed: 09/27/25 07:52> VTE Prior VTE?: No <Katrin Colorado PA-C - Last Filed: 09/27/25 07:52> VTE Risk Level:: Surgical - low <Katrin Colorado PA-C - Last Filed: 09/27/25 07:52> VTE Device Contraindication: N/A - Device Ordered <Katrin Colorado PA-C - Last Filed: 09/27/25 07:52> VTE Drug Contraindication: Treatment Not Indicated <Katrin Colorado PA-C - Last Filed: 09/27/25 07:52>
--- NOTE | 2025-09-27 09:32 | PM.DS ---
DS: Providers Provider Date of Service: 09/27/25 Date of admission: 09/25/25 08:24 Date of discharge: 09/27/25 Primary care physician: BRANDI [place] Attending physician on admission: Barbara Jorgensen Consults: 09/25/25 17:41 Consult to Hospitalist Routine Comment: Consulting Provider: [facility] Hospitalists Reason For Exam: hypoxia Attending physician on discharge: Julio C Wilcox DS: Diagnosis Discharge Diagnosis (1) S/P laparoscopic appendectomy: Status: Acute (2) Acute hypoxic respiratory failure: Status: Acute DS: Summary Hospital Course Hospital Course: HPI AT ADMISSION: Jose Antonio Foss is a 35 year old male complaining of right lower quadrant pain nausea and vomiting starting since yesterday. Patient was here back in February with a very similar presentation at the time it seemed that he had early appendicitis. His white count was elevated and there was some mild inflammatory changes around the appendix. Patient was scheduled to go on vacation and fly t [place] so he did not want surgery and was treated with antibiotics and improved. Now he is having another flare-up which he says is very similar. CT scan shows distended dilated appendix not with very much inflammatory changes but the patient is tender in the right lower quadrant. HOSPITAL COURSE: The patient was admitted to the surgical service for further treatment of the acute appendicitis. He elected to proceed with laparoscopic appendectomy. He was added onto the OR schedule for that day. On 09/25/25, a laparoscopic appendectomy was performed by Dr. Jorgensen without complication. The patient tolerated the procedure well. However in recovery, patient noted to be severely hypoxic and tachypneic requiring high-flow to maintain saturations in the low 90s. He did well with incentive spirometer and saturations did improve however quickly desaturated again when resting or sleeping. Differential included atelectasis, aspiration pneumonitis. CXR showed perihilar centrilobular ground-glass opacities representing possible early bronchitis vs pneumonia. He was continued on O2 support with high-flow, incentive spirometry. His supplemental oxygen was weaned as tolerated. He was kept on IV zosyn for possible pna. On POD #2, he felt well and was tolerating a solid diet without nausea or vomiting, had good pain control and was ambulating without difficulty. He had no respiratory symptoms. He was hemodynamically stable and off supplemental oxygen for 12 hours while maintaining saturation in the low to mid 90s. His abdomen was benign with appropriate post op tenderness and clean incisions. He felt ready for discharge. He was discharged to home on 09/27/25 in stable condition off antibiotics. He is to follow up in the office in 1-2 weeks. Status at Discharge Functional status at discharge: independent ambulation Overall status at discharge: patient is progressing back to baseline Time Attestation Discharge Coordination Time (in mins): 35 Quality: Safe Use of Opioids Does Pt have an Active Cancer Diagnosis on the Problem List?: No Quality: Stroke Does the patient have a stroke diagnosis?: No Physical Exam Vital Signs: Vital Signs: Last Vital Signs Temp 97.9 F 09/27/25 07:23 Pulse 87 09/27/25 07:23 Resp 18 09/27/25 07:23 BP 102/64 09/27/25 07:23 Pulse Ox 94 09/27/25 07:23 O2 Del Method Room Air 09/27/25 07:23 O2 Flow Rate 2 09/26/25 12:08 FiO2 37 09/25/25 18:46 BMI result Body Mass Index 26.7 Const: General: comfortable, no acute distress and alert Orientation/consciousness: patient oriented x3 Resp: Effort & Inspection: normal respiratory effort, able to speak in complete sentences, not tachypneic and no use of accessory muscles GI: Other: incisions clean mild incisional tenderness soft Inspection: No distended Palpation (GI): no guarding and not rigid Skin: General skin exam: no rashes or lesions noted Neuro: General: patient oriented x3 and moves all extremities DS: Data Data Completed and Pending Pending studies at discharge: Pending at discharge 09/25/25 13:30 Surgical [PTH] Routine Labs on day of discharge: Preliminary micro results at discharge 09/25/25 06:17 Blood Culture - Preliminary Blood - Venous No growth after 48 hours. 09/25/25 06:20 Blood Culture - Preliminary Blood - Venous No growth after 48 hours. Discharge Plan Discharge Anticipated Discharge Date/Time: 09/25/25 16:00 Patient Disposition: Home, Self-Care Discharge Diagnosis: Appendicitis Referrals: Julio C Wilcox MD [Physician, General Surgery] - 2 Weeks Shanda Lima PA [Primary Care Provider, Internal Medicine] - 1 Week Discharge Medications: New oxycodone 5 mg Tablet 5 mg PO Q4H PRN (Reason: Pain, Mild (Pain Scale 1-3)) Qty: 10 0RF Rx Instructions: Partial Fill upon patient request. docusate sodium [Colace] 100 mg capsule 100 mg PO BID Qty: 20 0RF nicotine 21 mg/24 hr patch 24 hour 1 patch transdermal DAILY Qty: 28 0RF Discharge Orders: Discharge Order (Routine); Ordered 09/27/25 Ordered By: Katrin Colorado Diet: Advance to usual diet Activity on Discharge: No heavy lifting Stand Alone Forms: Patient Portal Discharge page Print Language: Canadian Care Plan Goals: If the incision area is tender, you may apply an ice pack for short intervals (No more than 20 minutes on, followed by at least 20 minutes off). Do not apply heat. Do not use creams, lotions, or topical antibiotics. Ok to shower. Remove clear dressings 3 days following your procedure. You have steri strips (small white strips) covering your incision- these will fall off ~1 week. No heavy lifting (>10lbs) or strenuous activity! Take Tylenol Extra-strength 1-2 tabs every 6 hours for the first day, then as needed. Oxycodone every 6-8 hours as needed for pain. Colace 100 mg every day as needed for constipation. Follow up in office with Dr. Wilcox in 1-2 weeks. ([phone]) Call Your Doctor If: -Your temperature exceeds 101.5? F -You experience excessive pain or swelling -You have an unexpected reaction to medication -You have excessive bleeding -You experience continued vomiting/nausea -Your incision begins to separate -Your incision shows signs of infection such as increased redness, swelling, excessive pain, drainage (light blood or clear fluid is normal) or heat Health Concerns: See above Plan of Treatment: See above Assessment: Improved
--- NOTE | 2025-11-15 14:42 | W.PM.OPN ---
Operative Note Operative Note Date of Service: 09/25/25 Narrative: preop diagnosis- acute appendicitis postop diagnosis-- acute appendicitis procedure-- laparoscopic appendectomy surgeon-- Meloniejon anesthesia-- general endotracheal tube anesthesia patient is a 35-year-old male comes in with a history of right lower quadrant pain elevated white count tender in the right lower quadrant and CT scan findings consistent with the acute appendicitis. As a result he comes in now to undergo laparoscopic appendectomy findings-- acutely inflamed appendix procedure-- patient was brought to the operative room under anesthesia guidance was intubated. Please see anesthesia records for details. His abdomen was prepped and draped in standard surgical fashion. An infraumbilical incision was created after numbing up the area with a 0.25% Marcaine with epinephrine. Dissection was carried down to the anterior abdominal wall fascia which was grasped with Bronson's and transected. 0 Vicryl pursestring suture placed. Seth trocar introduced pneumoperitoneum established to 15 mmHg pressure. Two 5 mm ports were then placed under direct vision 1 in the suprapubic area and 1 in the left lower quadrant using local. Attention was then focused to the right lower quadrant and the appendix was identified and looked somewhat inflamed. It was elevated and the LigaSure was used to come across the mesentery to the base of the appendix. Here the Endo-CHRISTINA 45 blue load was fired across the base of the appendix on the cecum. The specimen was placed in an Endo-Catch bag and removed. Pneumoperitoneum was reestablished in the area reexamined. The staple line and the mesentery looked intact and fine. Ports were then removed under direct visualization and the infraumbilical pursestring suture approximated. Local was placed here again. 4-0 Monocryl in an interrupted subcuticular fashion was used to approximate the skin edges with Steri-Strips placed. At the end of the case all sponge instrument needle counts were correct estimated blood loss was minimal. Patient was extubated returned stable to recovery room. Specimens sent was the appendix
== END 2025-09-27 09:38 | disposition home or self-care (01) | DRG 234 ==
LOC: HO.ED 09-25 06:02 → HO.EDOVER 09-25 08:32 → HO.S3 09-25 11:35 → HO.IMC 09-25 17:58
PROVIDERS: Internal Medicine; Admitting Provider Surgery; Emergency Provider Emergency Medicine; PCP Student in an Organized Health Care Education/Training Program; Visit Provider Surgery
PROC: 0DTJ4ZZ Resection of Appendix, Percutaneous Endoscopic Approach (ICD-10-PCS; CPT 44970; principal; 2025-09-25 13:00)
DX: K35.80 Unspecified acute appendicitis (principal); J96.01 Acute respiratory failure with hypoxia; F17.210 Nicotine dependence, cigarettes, uncomplicated; Z71.6 Tobacco abuse counseling; J18.9 Pneumonia, unspecified organism; J98.11 Atelectasis
CPT/HCPCS: 36415; 71045; 74177; 80048; 80053; 80076; 83690; 83735; 85025; 85027; 87040; 88304; 93005; 94640; 94799; 99285; J1100; J1885; J2003; J2270; J2405; J2543; J2704; J3010; Q9967

== ENCOUNTER → 2025-09-25 01:08 | Outpatient (BNV) | payer MEDICAID, SELFPAY | PROVIDERS: Emergency Provider Emergency Medicine; PCP Student in an Organized Health Care Education/Training Program; Visit Provider Student in an Organized Health Care Education/Training Program | DX: K38.8 Other specified diseases of appendix (principal); R91.8 Other nonspecific abnormal finding of lung field | CPT/HCPCS: 71045; 74177 ==

== ENCOUNTER 2025-09-25 08:24 | Outpatient (BNV) | payer MEDICAID, SELFPAY | END 2025-09-25 18:00 | PROVIDERS: Admitting Provider Surgery; Emergency Provider Emergency Medicine; PCP Student in an Organized Health Care Education/Training Program; Visit Provider Internal Medicine Cardiovascular Disease | DX: R00.0 Tachycardia, unspecified (principal); I51.7 Cardiomegaly | CPT/HCPCS: 93010 ==

== ENCOUNTER → 2025-09-25 08:24 | Outpatient (BNV) | payer MEDICAID, SELFPAY | PROVIDERS: Admitting Provider Surgery; Emergency Provider Emergency Medicine; PCP Student in an Organized Health Care Education/Training Program; Visit Provider Surgery | DX: K35.80 Unspecified acute appendicitis (principal) | CPT/HCPCS: 99223 ==

== ENCOUNTER → 2025-09-25 08:24 | Outpatient (BNV) | payer MEDICAID, SELFPAY | PROVIDERS: Admitting Provider Surgery; Emergency Provider Emergency Medicine; PCP Student in an Organized Health Care Education/Training Program; Visit Provider Internal Medicine | DX: J96.01 Acute respiratory failure with hypoxia (principal) | CPT/HCPCS: 99223 ==